=== PATIENT | female | born 1980 | race Caucasian/White ===

== ENCOUNTER 2019-04-25 12:07 | Inpatient (IN) | payer OTHER ==
--- NOTE | 2019-04-25 16:41 | BHS.RME ---
Substance Use & Tx History - Substance Use History Opiates (Heroin) Substance amount: 1 bundle- 1 1/2 bundles day Frequency of use: Daily Substance route: Injection (ex: intravenous or skin popping) Date of Last Use: 04/25/19 - Last Treatment Date of last treatment: Chemical dependency therapy only Treatment type: Substance Use Disorder (LAKEISHA) Physical/Psych/Mental Status - Behavior Eye Contact: Normal - Cooperativeness Cooperativeness: Cooperative - Thinking Thought Processes: Goal Directed - Physical Health Problems Is patient presently having any pain?: No COWS - Scale Resting Pulse: 1= SD 81-100 Sweatin= Chills/Flushing Restless Observation: 3= Extraneous Movement Pupil Size: 0= Normal to Room Light Bone or Joint Aches: 1= Mild Discomfort Runny Nose/ Eye Tearin= Nasal Congestion GI Upset > 30mins: 1= Stomach Cramp Tremor Observation: 1= Tremor [place], Not Seen Yawning Observation: 1= 1-2x During Session Anxiety or Irritability: 1=Feels Anxious/Irritable Goose Flesh Skin: 0=Smooth Skin COWS Score: 11 Treatment Recommendation - Level of Care Level of Care: Acute Medical (admitted for opioid detox with methadone), Acute Psychiatric
--- NOTE | 2019-04-25 18:10 | HP ---
COWS - Scale Resting Pulse: 1= [place] 81-100 Sweatin= Chills/Flushing Restless Observation: 3= Extraneous Movement Pupil Size: 1= Pupils >than Normal Bone or Joint Aches: 2= Severe Diffuse Aches Runny Nose/ Eye Tearin= Nasal Congestion GI Upset > 30mins: 1= Stomach Cramp Tremor Observation: 1= Tremor [place], Not Seen Yawning Observation: 1= 1-2x During Session Anxiety or Irritability: 2=Irritable/Anxious Goose Flesh Skin: 0=Smooth Skin COWS Score: 14 CIWA Score - Admission Criteria [facility]ASAS Guidelines: Admission for Medically Managed Detox: Requires at least one of the followin. CIWA greater than 12 2. Seizures within the past 24 hours 3. Delirium tremens within the past 24 hours 4. Hallucinations within the past 24 hours 5. Acute intervention needed for co occurring medical disorder 6. Acute intervention needed for co occurring psychiatric disorder 7. Severe withdrawal that cannot be handled at a lower level of care (continued vomiting, continued diarrhea, abnormal vital signs) requiring intravenous medication and/or fluids 8. Admitting History and Physical - Admission Chief Complaint: i need help to stop using heroin History of Present Illness: his 38 years old female with heroin dependence,seeking detox, denied seizure,denied syncope never been n detox before colitis no medicaion History Source: Patient Limitations to Obtaining History: No Limitations - Past Medical History Gastrointestinal: Yes: Other (colitis) ...LMP: 04/16/19 ...: No - Past Surgical History Past Surgical History: Yes: None - Smoking History Smoking history: Current every day smoker Have you smoked in the past 12 months: Yes Aproximately how many cigarettes per day: 10 - Alcohol/Substance Use Hx Alcohol Use: No History of Substance Use: reports: Heroin Date of Last Use: 04/25/19 - Social History Usual Living Arrangement: Yes: With Parent Occupation: unemployed History of Recent Travel: No [facility] Chief Complaint: i need help to stop using heroin Allergies/Adverse Reactions: Allergies Allergy/AdvReac Type Severity Reaction Status Date / Time No Known Allergies Allergy Verified 04/25/19 18:13 History of Present Illness: this 38 years old female cruz=ith heroin dependence,seeking detox,also taking aderall,klonopin, denied seizure no syncope nicotine dependence 10 cigarette/day never been in detox before longest sobriety 5 years plan for outpatient program Exam Limitations: No Limitations - Ebola screening Have you traveled outside of the country in the last 21 days: No Have you had contact with anyone from an Ebola affected area: No Have you been sick,other than usual withdrawal symptoms: No Do you have a fever: No - Review of Systems Constitutional: Chills, Loss of Appetite, Malaise, Night Sweats, Changes in sleep, Weakness, Unintentional Wgt. Loss EENT: reports: Tearing, Nose Congestion Respiratory: reports: No Symptoms reported Cardiac: reports: No Symptoms Reported GI: reports: Diarrhea, Nausea, Vomiting, Abdominal cramping : reports: No Symptoms Reported Musculoskeletal: reports: Back Pain, Joint Pain, Muscle Pain Integumentary: reports: Dryness Neuro: reports: Tremors Endocrine: reports: No Symptoms Reported Hematology: reports: No Symptoms Reported Psychiatric: reports: No Sypmtoms Reported, Judgement Intact, Mood/Affect Appropiate, Orientated x3, Anxious (adhd) Other Systems: Reviewed and Negative Patient History - Patient Medical History Hx Anemia: No Hx Asthma: No Hx Chronic Obstructive Pulmonary Disease (COPD): No Hx Cancer: No Hx Cardiac Disorders: No Hx Congestive Heart Failure: No Hx Hypertension: No Hx Hypercholesterolemia: No Hx Pacemaker: No HX Cerebrovascular Accident: No Hx Seizures: No Hx Dementia: No Hx Diabetes: No Hx Gastrointestinal Disorders: No Hx Liver Disease: No Hx Genitourinary Disorders: No Hx Sexually Transmitted Disorders: No Hx Renal Disease (ESRD): No Hx Thyroid Disease: No Hx Human Immunodeficiency Virus (HIV): No (last 03/2019) Hx Hepatitis C: No Hx Depression: No Hx Suicide Attempt: No Hx Bipolar Disorder: No Hx Schizophrenia: No Other Medical History: adhd,anxiety,no suicidal,no homicidal - Patient Surgical History Past Surgical History: No - PPD History Previous Implant?: Yes Documented Results: Negative w/o proof Implanted On Prior [facility] Admission?: No PPD to be Administered?: Yes - Reproductive History Patient is a Female of Child Bearing Age (11 -55 yrs old): Yes Last Menstrual Period: 04/16/19 Patient : No - Smoking Cessation Smoking history: Current every day smoker Have you smoked in the past 12 months: Yes Aproximately how many cigarettes per day: 10 Cigars Per Day: 0 Hx Chewing Tobacco Use: No Initiated information on smoking cessation: Yes 'Breaking Loose' booklet given: 05/02/19 - Substance & Tx. History Hx Alcohol Use: No Hx Substance Use: Yes Substance Use Type: Heroin Hx Substance Use Treatment: No - Substances abused Heroin Other (specify): 10 bags Substance route: Injection Frequency: Daily Amount used: 10 bags Age of first use: 33 Date of last use: 04/25/19 [facility] General Appearance: Yes: Moderate Distress, Tremorous, Irritable, Sweating, Anxious HEENTM: Yes: Normal ENT Inspection, SO, Pharynx Normal Respiratory: Yes: Lungs Clear, Normal Breath Sounds, No Respiratory Distress Neck: Yes: Within Normal Limits, Supple, Trachea in good position Breast: Yes: Breast Exam Deferred Cardiology: Yes: Within Normal Limits, Regular Rhythm, Regular Rate, S1, S2 Abdominal: Yes: Within Normal Limits, Normal Bowel Sounds, Non Tender, Soft, Decreased BS Genitourinary: Yes: Within Normal Limits Back: Yes: Muscle Spasm Musculoskeletal: Yes: full range of Motion, Back pain, Muscle Pain Extremities: Yes: Within Normal Limits, Tremors Neurological: Yes: notcher II-XII NML intact, Fully Oriented, Alert, Motor Strength 5/5 Integumentary: Yes: Dry, Track Barrett Lymphatic: Yes: Within Normal Limits - Diagnostic (1) Opioid dependence with withdrawal Current Visit: Yes Status: Acute (2) IVDU (intravenous drug user) Current Visit: Yes Status: Acute (3) ADHD Current Visit: Yes Status: Acute (4) Anxiety Current Visit: Yes Status: Acute (5) Nicotine dependence Current Visit: Yes Status: Acute Cleared for Admission [facility] Level of Care: Medically Managed Detox Regimen/Protocol: Methadone Inpatient Rehab Admission - Rehab Decision to Admit Inpatient rehab admission?: No
[2019-04-25 18:23] VITALS: BMI 21.2
[2019-04-25] MEDS ORDERED: METHADONE HCL 10 MG TABLET (FOR DETOX USE ONLY) PO ONE (18:23)
[2019-04-25] MEDS ORDERED: BISMUTH SUBSALICYLATE 524 MG/30 ML UD PO PRN (18:24)
[2019-04-25] MEDS ORDERED: IBUPROFEN 400 MG TABLET (FP) PO PRN (18:24)
[2019-04-25] MEDS ORDERED: MAGNESIUM CITRATE 300 ML BOTTLE PO PRN (18:24)
[2019-04-25] MEDS ORDERED: MENTHOL/PHENOL 1 EACH UD MM PRN (18:24)
[2019-04-25] MEDS ORDERED: hydrOXYzine PAMOATE 25 MG CAPSULE (FP) PO PRN (18:24)
[2019-04-25] MEDS ORDERED: ACETAMINOPHEN 325 MG TABLET (FP) PO PRN (18:24)
[2019-04-25] MEDS ORDERED: MAGNESIUM HYDROX 2400MG/30ML ORAL SUSPENSION 30 ML CUP PO PRN (18:24)
[2019-04-25] MEDS ORDERED: METHOCARBAMOL 500 MG TABLET PO PRN (18:24)
[2019-04-25] MEDS ORDERED: MAG HYDROX/AL HYDROX/SIMETH 30 ML UNIT-DOSE CUP PO PRN (18:24)
[2019-04-25] MEDS: cloNIDine HCL 0.1 MG TABLET PO PRN (21:02)
[2019-04-25] MEDS ORDERED: MELATONIN 5 MG TABLETS PO PRN (22:00)
[2019-04-25] MEDS: THIAMINE HCL 100 MG TABLET (FP) PO SCH (22:11)
[2019-04-25] MEDS: NICOTINE POLACRILEX 2 MG GUM BUC PRN (22:12)
[2019-04-26] MEDS ORDERED: METHADONE HCL 10 MG TABLET (FOR DETOX USE ONLY) ONE (09:42)
[2019-04-26] MEDS ORDERED: METHADONE HCL 5 MG TABLET (FOR DETOX USE ONLY) ONE (09:42)
[2019-04-26] MEDS ORDERED: METHADONE (DETOX) 20 MG, METHADONE (DETOX) 5 MG PO ONE (10:00)
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
[2019-04-26] MEDS: cloNIDine HCL 0.1 MG TABLET PO PRN (10:13)
[2019-04-26] MEDS: PRENATAL VITAMINS W/ FOLIC ACID TABLET (FP) PO SCH (10:14)
[2019-04-26] MEDS: NICOTINE POLACRILEX 2 MG GUM BUC PRN ×3 (10:15→22:26)
--- NOTE | 2019-04-26 10:29 | PN ---
BHS COWS - Scale Resting Pulse: 0= RI 80 or Below Sweatin= Chills/Flushing Restless Observation: 0= Sits Still Pupil Size: 1= Pupils >than Normal Bone or Joint Aches: 2= Severe Diffuse Aches Runny Nose/ Eye Tearin= None GI Upset > 30mins: 1= Stomach Cramp Tremor Observation of Outstretched Hands: 2= Slight Tremor Visible Yawning Observation: 0= None Anxiety or Irritability: 2=Irritable/Anxious Goose Flesh Skin: 3=Piloerection COWS Score: 12 BHS Progress Note (SOAP) Subjective: 38 years old female admitted on 04/25/19 for opiate withdrawal sx management treating with methadone detox regiment reports long history of panic attack treated with klonopin 1 mg bid daily received monthly filled on 04/16/19 reports had panic attack "last night" can not sleep all night belsomra 5 mg x 1 po hs Objective: 04/26/19 10:31 Vital Signs Temperature 98.8 F 04/26/19 07:31 Pulse Rate 78 04/26/19 07:31 Respiratory Rate 19 04/26/19 07:31 Blood Pressure 100/60 04/26/19 07:31 O2 Sat by Pulse Oximetry (%) 04/26/19 10:31 lab pending Assessment: 04/26/19 10:31 opiate withdrawal Plan: methadone regiment
[2019-04-26 11:47] LABS: HEMATOCRIT 37.4 % (32.4-45.2); HEMOGLOBIN 12.7 GM/dL (10.7-15.3); MCH 29.7 pg (25.7-33.7); MCHC 33.9 g/dl (32.0-36.0); MEAN CELL VOLUME 87.5 fl (80-96); MEAN PLT VOLUME 9.9 fl (7.5-11.1); PLATELET COUNT 241 K/MM3 (134-434); RBC 4.27 M/mm3 (3.60-5.2); RDW 13.7 % (11.6-15.6)
[2019-04-26 11:54] LABS: ALBUMIN 3.3 g/dl (3.4-5.0); BILIRUBIN,TOTAL 0.3 mg/dL (0.2-1); BLOOD UREA NITROGEN 15.7 mg/dL (7-18); CREATININE 0.7 mg/dL (0.55-1.3); TOT PROT 6.8 g/dl (6.4-8.2)
[2019-04-26] MEDS: diazePAM 5 MG TABLET PO PRN ×3 (13:41→22:28)
[2019-04-26] MEDS ORDERED: SUVOREXANT 5 MG TABLET PO ONE (22:00)
[2019-04-26] MEDS: THIAMINE HCL 100 MG TABLET (FP) PO SCH (22:26)
[2019-04-27] MEDS: diazePAM 5 MG TABLET PO PRN ×4 (04:33→21:02)
[2019-04-27] MEDS ORDERED: ONDANSETRON *ODT* 4 MG TABLET SL ONE (09:20)
[2019-04-27] MEDS: PRENATAL VITAMINS W/ FOLIC ACID TABLET (FP) PO SCH (09:21)
[2019-04-27] MEDS ORDERED: METHADONE HCL 10 MG TABLET (FOR DETOX USE ONLY) PO ONE (10:00)
--- NOTE | 2019-04-27 10:30 | EKG ---
Test Reason : Blood Pressure : / mmHG Vent. Rate : 083 BPM Atrial Rate : 083 BPM P-R Int : 126 ms QRS Dur : 084 ms QT Int : 368 ms P-R-T Axes : 011 062 029 degrees QTc Int : 432 ms NORMAL SINUS RHYTHM NORMAL ECG NO PREVIOUS ECGS AVAILABLE Confirmed by Scooter Gregg ([id number]) on 04/27/2019 10:29:45 AM Referred By: MAINE RAMAN Confirmed By:Scooter Gregg
--- NOTE | 2019-04-27 10:48 | PN ---
BHS COWS - Scale Resting Pulse: 2= [place] 101-120 Sweatin= Chills/Flushing Restless Observation: 0= Sits Still Pupil Size: 1= Pupils >than Normal Bone or Joint Aches: 2= Severe Diffuse Aches Runny Nose/ Eye Tearin= None GI Upset > 30mins: 2= Nausea/Diarrhea Tremor Observation of Outstretched Hands: 2= Slight Tremor Visible Yawning Observation: 0= None Anxiety or Irritability: 2=Irritable/Anxious Goose Flesh Skin: 0=Smooth Skin COWS Score: 12 BHS Progress Note (SOAP) Subjective: 38 years old female admitted on 04/25/19 for opiate withdrawal sx management treating with methadone detox regiment reports feeling nausea after breakfast zofran sl 4 mg x 1 Objective: 04/27/19 10:47 Vital Signs Temperature 98.2 F 04/27/19 08:50 Pulse Rate 102 H 04/27/19 08:50 Respiratory Rate 18 04/27/19 08:50 Blood Pressure 108/65 04/27/19 08:50 O2 Sat by Pulse Oximetry (%) Laboratory Last Values WBC 6.0 K/mm3 (4.0-10.0) 04/26/19 07:25 RBC 4.27 M/mm3 (3.60-5.2) 04/26/19 07:25 Hgb 12.7 GM/dL (10.7-15.3) 04/26/19 07:25 Hct 37.4 % (32.4-45.2) 04/26/19 07:25 MCV 87.5 fl (80-96) 04/26/19 07:25 MCH 29.7 pg (25.7-33.7) 04/26/19 07:25 MCHC 33.9 g/dl (32.0-36.0) 04/26/19 07:25 RDW 13.7 % (11.6-15.6) 04/26/19 07:25 Plt Count 241 K/MM3 (134-434) 04/26/19 07:25 MPV 9.9 fl (7.5-11.1) 04/26/19 07:25 Sodium 139 mmol/L (136-145) 04/26/19 07:25 Potassium 4.0 mmol/L (3.5-5.1) 04/26/19 07:25 Chloride 106 mmol/L (98-107) 04/26/19 07:25 Carbon Dioxide 30 mmol/L (21-32) 04/26/19 07:25 Anion Gap 4 MMOL/L (8-16) L 04/26/19 07:25 BUN 15.7 mg/dL (7-18) 04/26/19 07:25 Creatinine 0.7 mg/dL (0.55-1.3) 04/26/19 07:25 Est GFR (CKD-EPI)AfAm 128.28 04/26/19 07:25 Est GFR (CKD-EPI)NonAf 110.69 04/26/19 07:25 Random Glucose 94 mg/dL (74-106) 04/26/19 07:25 Calcium 9.0 mg/dL (8.5-10.1) 04/26/19 07:25 Total Bilirubin 0.3 mg/dL (0.2-1) 04/26/19 07:25 AST 22 U/L (15-37) 04/26/19 07:25 ALT 23 U/L (13-61) 04/26/19 07:25 Alkaline Phosphatase 62 U/L (45-117) 04/26/19 07:25 Total Protein 6.8 g/dl (6.4-8.2) 04/26/19 07:25 Albumin 3.3 g/dl (3.4-5.0) L 04/26/19 07:25 RPR Titer Nonreactive (NONREACTIVE) 04/26/19 07:25 lab noted Assessment: 04/27/19 10:48 opiate withdrawal discuss medication assisted treatment program Plan: methadone regiment pickle processor narcan from pharmacy
--- NOTE | 2019-04-27 17:54 | PN ---
S Progress Note Note: per nursing, pt requesting additional Zofran for nausea , received 1 dose this morning EKG : QTc 432 ms 04/25/2019 Prn Zofran added Vital Signs - 24 hr 04/26/19 04/26/19 04/27/19 20:00 20:40 00:30 Temperature 98.1 F 98.9 F Pulse Rate 92 H 94 H Respiratory 18 19 18 Rate Blood Pressure 106/65 105/64 04/27/19 04/27/19 04/27/19 03:30 05:30 08:50 Temperature 97.7 F 98.2 F Pulse Rate 86 102 H Respiratory 16 18 18 Rate Blood Pressure 114/65 108/65 04/27/19 12:57 Temperature 98 F Pulse Rate 76 Respiratory 18 Rate Blood Pressure 130/70
[2019-04-27] MEDS: ONDANSETRON *ODT* 4 MG TABLET SL PRN (18:07)
--- NOTE | 2019-04-27 19:07 | PN ---
BHS Progress Note Note: pt did not tolerate p.o. zofran . left FA track alvarez c/d/i Vital Signs - 24 hr 04/26/19 04/26/19 04/27/19 20:00 20:40 00:30 Temperature 98.1 F 98.9 F Pulse Rate 92 H 94 H Respiratory 18 19 18 Rate Blood Pressure 106/65 105/64 04/27/19 04/27/19 04/27/19 03:30 05:30 08:50 Temperature 97.7 F 98.2 F Pulse Rate 86 102 H Respiratory 16 18 18 Rate Blood Pressure 114/65 108/65 04/27/19 04/27/19 04/27/19 12:57 16:52 18:28 Temperature 98 F 98.5 F 100.3 F H Pulse Rate 76 71 77 Respiratory 18 18 18 Rate Blood Pressure 130/70 126/87 134/82 P : Tigan i.m. x once
[2019-04-27] MEDS ORDERED: TRIMETHOBENZAMIDE HCL 200MG/2ML INJ IM ONE (19:08)
[2019-04-27] MEDS: THIAMINE HCL 100 MG TABLET (FP) PO SCH (21:02)
[2019-04-27] MEDS: SUVOREXANT 10 MG TABLET PO PRN (23:06)
[2019-04-27] MEDS: ACETAMINOPHEN 325 MG TABLET (FP) PO PRN (23:28)
[2019-04-28] MEDS: diazePAM 5 MG TABLET PO PRN ×4 (02:13→21:09)
[2019-04-28] MEDS: ACETAMINOPHEN 325 MG TABLET (FP) PO PRN (06:32)
[2019-04-28] MEDS: ONDANSETRON *ODT* 4 MG TABLET SL PRN ×2 (07:11→22:52)
[2019-04-28] MEDS ORDERED: METHADONE HCL 5 MG TABLET (FOR DETOX USE ONLY) ONE (09:44)
[2019-04-28] MEDS ORDERED: METHADONE HCL 10 MG TABLET (FOR DETOX USE ONLY) ONE (09:44)
[2019-04-28] MEDS ORDERED: METHADONE (DETOX) 10 MG, METHADONE (DETOX) 5 MG PO ONE (10:00)
[2019-04-28] MEDS: PRENATAL VITAMINS W/ FOLIC ACID TABLET (FP) PO SCH (10:55)
--- NOTE | 2019-04-28 12:19 | PN ---
S CIWA - CIWA Score Nausea/Vomitin Muscle Tremors: 1-None Visible, but Stark Anxiety: 1-Mildly Anxious Agitation: 1-Slight > Activity Paroxysmal Sweats: 1-Minimal Palms Moist Orientation: 0-Oriented Tacttile Disturbances: 0-None Auditory Disturbances: 0-None Visual Disturbances: 0-None Headache: 0-None Present CIWA-Ar Total Score: 7 BHS Progress Note (SOAP) Subjective: 38 years old female admitted on 04/25/19 for opiate withdrawal sx management treating with methadone detox regiment feeling ok today requests valium 10 mg po q4h till "the time of discharge" health teaching on valium 10 mg po q4h prn x 72 hours as pervious discussion patient prefers to return to [facility] out patient chemical dependent rehab facility where she was familiar patient reports that she has long history of nausea and vomiting taking zofran at home received valium and methadone in am patient tolerated well no vomiting after lunch vomited x 1 tigan 200 mg im x 1 Objective: 04/28/19 12:51 Vital Signs Temperature 99.9 F H 04/28/19 08:59 Pulse Rate 74 04/28/19 08:59 Respiratory Rate 18 04/28/19 08:59 Blood Pressure 115/60 04/28/19 08:59 O2 Sat by Pulse Oximetry (%) Laboratory Last Values WBC 6.0 K/mm3 (4.0-10.0) 04/26/19 07:25 RBC 4.27 M/mm3 (3.60-5.2) 04/26/19 07:25 Hgb 12.7 GM/dL (10.7-15.3) 04/26/19 07:25 Hct 37.4 % (32.4-45.2) 04/26/19 07:25 MCV 87.5 fl (80-96) 04/26/19 07:25 MCH 29.7 pg (25.7-33.7) 04/26/19 07:25 MCHC 33.9 g/dl (32.0-36.0) 04/26/19 07:25 RDW 13.7 % (11.6-15.6) 04/26/19 07:25 Plt Count 241 K/MM3 (134-434) 04/26/19 07:25 MPV 9.9 fl (7.5-11.1) 04/26/19 07:25 Sodium 139 mmol/L (136-145) 04/26/19 07:25 Potassium 4.0 mmol/L (3.5-5.1) 04/26/19 07:25 Chloride 106 mmol/L (98-107) 04/26/19 07:25 Carbon Dioxide 30 mmol/L (21-32) 04/26/19 07:25 Anion Gap 4 MMOL/L (8-16) L 04/26/19 07:25 BUN 15.7 mg/dL (7-18) 04/26/19 07:25 Creatinine 0.7 mg/dL (0.55-1.3) 04/26/19 07:25 Est GFR (CKD-EPI)AfAm 128.28 04/26/19 07:25 Est GFR (CKD-EPI)NonAf 110.69 04/26/19 07:25 Random Glucose 94 mg/dL (74-106) 04/26/19 07:25 Calcium 9.0 mg/dL (8.5-10.1) 04/26/19 07:25 Total Bilirubin 0.3 mg/dL (0.2-1) 04/26/19 07:25 AST 22 U/L (15-37) 04/26/19 07:25 ALT 23 U/L (13-61) 04/26/19 07:25 Alkaline Phosphatase 62 U/L (45-117) 04/26/19 07:25 Total Protein 6.8 g/dl (6.4-8.2) 04/26/19 07:25 Albumin 3.3 g/dl (3.4-5.0) L 04/26/19 07:25 RPR Titer Nonreactive (NONREACTIVE) 04/26/19 07:25 lab noted Assessment: 04/28/19 12:53 opiate withdrawal Plan: methadone regiment
[2019-04-28] MEDS ORDERED: TRIMETHOBENZAMIDE HCL 200MG/2ML INJ IM ONE (13:00)
[2019-04-28] MEDS ORDERED: AZITHROMYCIN 250 MG TABLET PO ONE (14:00)
[2019-04-28] MEDS: FAMOTIDINE 20 MG TABLET PO SCH ×2 (14:24→22:52)
--- NOTE | 2019-04-28 15:19 | PN ---
Psychiatric Progress Note Vital Signs: Vital Signs Period Temp Pulse Resp BP Sys/Whittaker Pulse Ox Last 24 Hr 97.8 F-100.6 F 71-87 16-18 106-134/60-87 Date of Session: 04/28/19 Chief Complaint:: " Will I get klonopin on the rehab floor ? " HPI: Day 4 of detoxification. Case of a 38 y/o female admitted to [address] [place] [address] to address LAKEISHA issues of benzodiazepine + opioid and nicotine co-morbid with ADHD and PTSD. Patient has requested meeting with psychiatrist to inquire about continuity of benzodiazepine drug (clonazepam) after transfer to the rehabilitation unit in next two days. ROS: Unremarkable. Alert, fully oriented, moderately anxious (fearful of not getting her dose [facility] Current Medications: Active Medications Generic Name Dose Route Start Last Admin Trade Name Freq PRN Reason Stop Dose Admin Acetaminophen 650 mg 04/25/19 18:24 04/28/19 06:32 Tylenol - PO 650 mg Q6H PRN Administration PAIN LEVEL 4 - 6 Acetaminophen 650 mg 04/25/19 18:24 04/27/19 18:59 Tylenol - PO 650 mg Q6H PRN Administration FEVER Al Hydroxide/Mg Hydroxide 30 ml 04/25/19 18:24 04/27/19 13:41 Mylanta Oral Suspension - PO 30 ml Q6H PRN Administration DYSPEPSIA Azithromycin 250 mg 04/29/19 10:00 Zithromax - PO 05/03/19 09:59 DAILY SRIKANTH Bismuth Subsalicylate 524 mg 04/25/19 18:24 Pepto-Bismol - PO Q1H PRN DIARRHEA Diazepam 10 mg 04/26/19 10:22 04/28/19 09:12 Valium - PO 04/29/19 10:22 10 mg Q4H PRN Administration WITHDRAWAL(CONT SUBST) Eucalyptus/Menthol/Phenol/Sorbitol 1 each 04/25/19 18:24 Cepastat Lozenge - MM 05/01/19 18:24 Q4H PRN SORE THROAT Famotidine 20 mg 04/28/19 14:00 04/28/19 14:24 Pepcid - PO 20 mg BID SRIKANTH Administration Hydroxyzine Pamoate 25 mg 04/25/19 18:24 Vistaril - PO 05/01/19 18:24 Q6H PRN For Anxiety Magnesium Citrate 300 ml 04/25/19 18:24 Citroma - PO Q48H PRN CONSTIPATION Magnesium Hydroxide 30 ml 04/25/19 18:24 Milk Of Magnesia - PO PRN PRN CONSTIPATION Melatonin 5 mg 04/25/19 22:00 04/26/19 22:26 Melatonin PO 5 mg HS PRN Administration INSOMNIA Methadone HCl 5 mg 04/30/19 06:00 Dolophine - PO 04/30/19 06:01 ONCE@0600 ONE Methadone HCl 10 mg 04/29/19 10:00 Dolophine - PO 04/29/19 10:01 ONCE ONE Methocarbamol 500 mg 04/25/19 18:24 Robaxin - PO 05/01/19 18:24 Q6H PRN MUSCLE SPASMS Nicotine Polacrilex 2 mg 04/25/19 18:24 04/26/19 22:26 Nicorette Gum - BUC 2 mg Q2H PRN Administration NICOTINE REPLACEMENT RX Ondansetron HCl 4 mg 04/27/19 17:53 04/28/19 07:11 Zofran Odt - SL 4 mg Q6H PRN Administration NAUSEA AND/OR VOMITING Multivit/Folic Acid/Iron 1 tab 04/26/19 10:00 04/28/19 10:55 Vitamins ([facility]) - PO 1 tab DAILY SRIKANTH Administration Suvorexant 10 mg 04/26/19 22:00 04/27/19 23:06 Belsomra PO 04/29/19 22:00 10 mg HS PRN Administration INSOMNIA Thiamine HCl 100 mg 04/25/19 22:00 04/27/19 21:02 Vitamin B1 - PO 100 mg HS SRIKANTH Administration Medication(s) Change(s): None at this time. Case will be discussed with medical specialist Dr Tinoco for appropriate management. Current Side Effect: No Lab tests ordered: No Lab tests reviewed: Yes Provider note:: Chart reviewed. Psychiatric consult note (04/26/19) of CECY Segundo : read and appreciated. Met with patient. Concern about benzodiazepine protocol : validated. Review of [facility] record shows negative urine toxicology for benzos. I-Stop check confirms refills for adderall + clonazepam. Patient is receptive to teaching. No acting out. Ms Fuentes is advised to focus on her treatment goals and allow clinicians to find answers to her issues. She agrees. Patient is not psychotic or manic. Not suicidal or homicidal. She is cognitively intact. Appears to be motivated for rehabilitative care. Stable mental status. See MSE report for details. Observation. Total face to face time:: 35 Mental Status Exam - Mental Status Exam Alert and Oriented to: Time, Place, Person Cognitive Function: Good Patient Appearance: Well Groomed Mood: Nervous, Anxious Affect: Appropriate, Normal Range Patient Behavior: Appropriate, Cooperative Speech Pattern: Clear, Appropriate Voice Loudness: Normal Thought Process: Intact, Goal Oriented Thought Disorder: Not Present Hallucinations: Denies Suicidal Ideation: Denies Homicidal Ideation: Denies Insight/Judgement: Poor Sleep: Well Appetite: Good Gait/Station: Normal Psychiatric Treatment Plan - Problem List (1) Opioid dependence with withdrawal Current Visit: Yes Comment: . (2) Nicotine dependence Current Visit: Yes Comment: . (3) Anxiety disorder Current Visit: Yes Comment: . (4) PTSD (post-traumatic stress disorder) Current Visit: Yes Comment: . According to history. (5) ADHD Current Visit: No Comment: As per records.
[2019-04-28 18:20] LABS: PH,URINE >= 9.0 (5.0-8.0); URINE APPEARANCE CLOUDY; URINE BILIRUBIN NEGATIVE (NEGATIVE); URINE COLOR YELLOW; URINE GLUCOSE (UA) NEGATIVE (NEGATIVE); URINE KETONE NEGATIVE (NEGATIVE); URINE LEUK ESTERASE NEGATIVE (NEGATIVE); URINE NITRITE NEGATIVE (NEGATIVE); URINE PROTEIN TRACE (NEGATIVE); URINE UROBILINOGEN 0.2 mg/dL (0.2-1.0)
[2019-04-28] MEDS: SUVOREXANT 10 MG TABLET PO PRN (22:52)
[2019-04-28] MEDS: THIAMINE HCL 100 MG TABLET (FP) PO SCH (22:52)
[2019-04-29] MEDS: ONDANSETRON *ODT* 4 MG TABLET SL PRN ×2 (05:19→21:38)
[2019-04-29] MEDS: diazePAM 5 MG TABLET PO PRN (05:24)
[2019-04-29] MEDS ORDERED: AZITHROMYCIN 250 MG TABLET PO SCH (10:00)
[2019-04-29] MEDS ORDERED: METHADONE HCL 10 MG TABLET (FOR DETOX USE ONLY) PO ONE (10:00)
--- NOTE | 2019-04-29 11:05 | PN ---
BHS COWS - Scale Resting Pulse: 0= [place] 80 or Below Sweatin= Chills/Flushing Restless Observation: 0= Sits Still Pupil Size: 0= Normal to Room Light Bone or Joint Aches: 0= None Runny Nose/ Eye Tearin= None GI Upset > 30mins: 3= Vomiting/Diarrhea Tremor Observation of Outstretched Hands: 0= None Yawning Observation: 0= None Anxiety or Irritability: 0= None Goose Flesh Skin: 0=Smooth Skin COWS Score: 4 BHS Progress Note (SOAP) Subjective: 38 years old female admitted on 04/25/19 for opiate withdrawal sx management treating with methadone detox regiment chronic nausea vomiting treated with zofran sl at home prn received zofran around 5 am tolerated valium 10 mg well patient requests to have valium prn till the time of discharged off the detox unit reports taking klonopin 2 mg daily for "years" last refilled beginning Apr 2019 patient prefers to return home continue klonopin and zofran Objective: 04/29/19 11:11 Vital Signs Temperature 99.3 F 04/29/19 07:22 Pulse Rate 65 04/29/19 07:22 Respiratory Rate 18 04/29/19 07:22 Blood Pressure 120/83 04/29/19 07:22 O2 Sat by Pulse Oximetry (%) Laboratory Last Values WBC 6.0 K/mm3 (4.0-10.0) 04/26/19 07:25 RBC 4.27 M/mm3 (3.60-5.2) 04/26/19 07:25 Hgb 12.7 GM/dL (10.7-15.3) 04/26/19 07:25 Hct 37.4 % (32.4-45.2) 04/26/19 07:25 MCV 87.5 fl (80-96) 04/26/19 07:25 MCH 29.7 pg (25.7-33.7) 04/26/19 07:25 MCHC 33.9 g/dl (32.0-36.0) 04/26/19 07:25 RDW 13.7 % (11.6-15.6) 04/26/19 07:25 Plt Count 241 K/MM3 (134-434) 04/26/19 07:25 MPV 9.9 fl (7.5-11.1) 04/26/19 07:25 Sodium 139 mmol/L (136-145) 04/26/19 07:25 Potassium 4.0 mmol/L (3.5-5.1) 04/26/19 07:25 Chloride 106 mmol/L (98-107) 04/26/19 07:25 Carbon Dioxide 30 mmol/L (21-32) 04/26/19 07:25 Anion Gap 4 MMOL/L (8-16) L 04/26/19 07:25 BUN 15.7 mg/dL (7-18) 04/26/19 07:25 Creatinine 0.7 mg/dL (0.55-1.3) 04/26/19 07:25 Est GFR (CKD-EPI)AfAm 128.28 04/26/19 07:25 Est GFR (CKD-EPI)NonAf 110.69 04/26/19 07:25 Random Glucose 94 mg/dL (74-106) 04/26/19 07:25 Calcium 9.0 mg/dL (8.5-10.1) 04/26/19 07:25 Total Bilirubin 0.3 mg/dL (0.2-1) 04/26/19 07:25 AST 22 U/L (15-37) 04/26/19 07:25 ALT 23 U/L (13-61) 04/26/19 07:25 Alkaline Phosphatase 62 U/L (45-117) 04/26/19 07:25 Total Protein 6.8 g/dl (6.4-8.2) 04/26/19 07:25 Albumin 3.3 g/dl (3.4-5.0) L 04/26/19 07:25 Urine Color Yellow 04/27/19 07:25 Urine Appearance Cloudy 04/27/19 07:25 Urine pH >= 9.0 (5.0-8.0) H 04/27/19 07:25 Ur Specific [place] 1.019 (1.010-1.035) 04/27/19 07:25 Urine Protein Trace (NEGATIVE) 04/27/19 07:25 Urine Glucose (UA) Negative (NEGATIVE) 04/27/19 07:25 Urine Ketones Negative (NEGATIVE) 04/27/19 07:25 Urine Blood Negative (NEGATIVE) 04/27/19 07:25 Urine Nitrite Negative (NEGATIVE) 04/27/19 07:25 Urine Bilirubin Negative (NEGATIVE) 04/27/19 07:25 Urine Urobilinogen 0.2 mg/dL (0.2-1.0) 04/27/19 07:25 Ur Leukocyte Esterase Negative (NEGATIVE) 04/27/19 07:25 RPR Titer Nonreactive (NONREACTIVE) 04/26/19 07:25 lab noted Assessment: 04/29/19 11:11 opiate withdrawal Plan: methadone regiment
[2019-04-29] MEDS: PRENATAL VITAMINS W/ FOLIC ACID TABLET (FP) PO SCH (11:06)
[2019-04-29] MEDS: FAMOTIDINE 20 MG TABLET PO SCH ×2 (11:06→21:38)
[2019-04-29] MEDS ORDERED: TRIMETHOBENZAMIDE HCL 200MG/2ML INJ IM ONE (11:25)
[2019-04-29] MEDS: ACETAMINOPHEN 325 MG TABLET (FP) PO PRN (11:47)
[2019-04-29] MEDS ORDERED: TRIMETHOBENZAMIDE HCL 200MG/2ML INJ IM PRN (18:00)
--- NOTE | 2019-04-29 18:47 | PN ---
S Progress Note Note: Psychiatry Attending's note (follow-up) : Re-approached by patient during daytime. Issue : wants to contact provider Dr Sofia العلي. Dr العلي works at [employer] in [place], [place]. Ms Fuentes provided a signed consent allowing food writer to talk to Dr العلي. Done : food writer called Dr العلي at [phone]. No success. has left office.
[2019-04-29] MEDS: THIAMINE HCL 100 MG TABLET (FP) PO SCH (21:38)
[2019-04-29] MEDS: SUVOREXANT 10 MG TABLET PO PRN (21:38)
[2019-04-30] MEDS ORDERED: TRIMETHOBENZAMIDE HCL 200MG/2ML INJ IM ONE (02:55)
[2019-04-30] MEDS ORDERED: METHADONE HCL 5 MG TABLET (FOR DETOX USE ONLY) PO ONE (06:00)
[2019-04-30 07:02] VITALS: BP 147/78; PULSE 72; TEMP 100.5
[2019-04-30] MEDS: ACETAMINOPHEN 325 MG TABLET (FP) PO PRN (07:14)
--- NOTE | 2019-04-30 07:18 | PN ---
[facility] Progress Note Note: Patient complained of vomiting Vital Signs 04/30/19 04/30/19 04/30/19 00:30 03:30 07:01 Temperature 100.5 F H Pulse Rate 72 Respiratory 18 18 18 Rate Blood Pressure 147/78 Action: Tigan 200mg IM ordered
[2019-04-30] MEDS: ONDANSETRON *ODT* 4 MG TABLET SL PRN (08:33)
--- NOTE | 2019-04-30 14:54 | DS ---
[facility] Detox Discharge Summary Admission Date: 04/25/19 Discharge Date: 04/30/19 - History Present History: Opioid Dependence Additional Comments: 38 years old female admitted on 04/25/19 for opiate withdrawal sx management treated with methadone detox regiment Ms Fuentes has completed the methadone detox regiment and is tolerated well patient received zofran 4 mg sl and methadone 5 mg po around 5 am today tolerated well patient reports that she has chronic vomiting syndrome treated with zofran sl at home seen by psychiatrist while in detox no medical intervention at this time alert oriented x 3 cardiac s1s2 regular rate rhythm respiratory clear lungs bilaterally on auscultation extremities full range of motion ambulating steady gait from bed to bathroom to hallway dress herself speech clearly coherently request wheelchair from 3N to labby waiting for transportation to [facility] chemical dependent rehab patient states that she is taking klonopin every day requests prescription for klonopin encourage the patient to contact her klonopin provider for continuity of care Pertinent Past History: time for discharge 91 minutes - Physical Exam Results Vital Signs: Vital Signs Temperature 100.5 F H 04/30/19 07:01 Pulse Rate 72 04/30/19 07:01 Respiratory Rate 18 04/30/19 07:01 Blood Pressure 147/78 04/30/19 07:01 O2 Sat by Pulse Oximetry (%) Pertinent Admission Physical Exam Findings: opiate withdrawal Laboratory Last Values WBC 6.0 K/mm3 (4.0-10.0) 04/26/19 07:25 RBC 4.27 M/mm3 (3.60-5.2) 04/26/19 07:25 Hgb 12.7 GM/dL (10.7-15.3) 04/26/19 07:25 Hct 37.4 % (32.4-45.2) 04/26/19 07:25 MCV 87.5 fl (80-96) 04/26/19 07:25 MCH 29.7 pg (25.7-33.7) 04/26/19 07:25 MCHC 33.9 g/dl (32.0-36.0) 04/26/19 07:25 RDW 13.7 % (11.6-15.6) 04/26/19 07:25 Plt Count 241 K/MM3 (134-434) 04/26/19 07:25 MPV 9.9 fl (7.5-11.1) 04/26/19 07:25 Sodium 139 mmol/L (136-145) 04/26/19 07:25 Potassium 4.0 mmol/L (3.5-5.1) 04/26/19 07:25 Chloride 106 mmol/L (98-107) 04/26/19 07:25 Carbon Dioxide 30 mmol/L (21-32) 04/26/19 07:25 Anion Gap 4 MMOL/L (8-16) L 04/26/19 07:25 BUN 15.7 mg/dL (7-18) 04/26/19 07:25 Creatinine 0.7 mg/dL (0.55-1.3) 04/26/19 07:25 Est GFR (CKD-EPI)AfAm 128.28 04/26/19 07:25 Est GFR (CKD-EPI)NonAf 110.69 04/26/19 07:25 Random Glucose 94 mg/dL (74-106) 04/26/19 07:25 Calcium 9.0 mg/dL (8.5-10.1) 04/26/19 07:25 Total Bilirubin 0.3 mg/dL (0.2-1) 04/26/19 07:25 AST 22 U/L (15-37) 04/26/19 07:25 ALT 23 U/L (13-61) 04/26/19 07:25 Alkaline Phosphatase 62 U/L (45-117) 04/26/19 07:25 Total Protein 6.8 g/dl (6.4-8.2) 04/26/19 07:25 Albumin 3.3 g/dl (3.4-5.0) L 04/26/19 07:25 Urine Color Yellow 04/27/19 07:25 Urine Appearance Cloudy 04/27/19 07:25 Urine pH >= 9.0 (5.0-8.0) H 04/27/19 07:25 Ur Specific [place] 1.019 (1.010-1.035) 04/27/19 07:25 Urine Protein Trace (NEGATIVE) 04/27/19 07:25 Urine Glucose (UA) Negative (NEGATIVE) 04/27/19 07:25 Urine Ketones Negative (NEGATIVE) 04/27/19 07:25 Urine Blood Negative (NEGATIVE) 04/27/19 07:25 Urine Nitrite Negative (NEGATIVE) 04/27/19 07:25 Urine Bilirubin Negative (NEGATIVE) 04/27/19 07:25 Urine Urobilinogen 0.2 mg/dL (0.2-1.0) 04/27/19 07:25 Ur Leukocyte Esterase Negative (NEGATIVE) 04/27/19 07:25 RPR Titer Nonreactive (NONREACTIVE) 04/26/19 07:25 lab noted - Treatment Hospital Course: Detox Protocol Followed, Detoxed Safely, Responded well, Discharged Condition Good, Rehab Referral Accepted Patient has Accepted a Rehab Referral to: [facility] - Medication Discharge Medications: Ambulatory Orders Clonazepam [Klonopin] 1 mg PO BID 04/25/19 Dextroamphetamine/Amphetamine [Adderall Xr 30 mg Capsule] 30 mg PO TID 04/25/19 Naloxone HCl [Narcan] 4 mg NS ASDIR PRN #1 spray 04/27/19 Azithromycin [Zithromax 250mg Tablets -] 250 mg PO DAILY #7 tablet 04/30/19 - Diagnosis (1) Opioid dependence with withdrawal Status: Acute (2) Nicotine dependence Status: Acute Qualifiers: Nicotine product type: cigarettes Substance use status: in withdrawal Qualified Code(s): F17.213 - Nicotine dependence, cigarettes, with withdrawal - AMA Did Patient Leave Against Medical Advice: No COWS (PN) - Opiate Withdrawal Resting Pulse: 0= [place] 80 or Below Sweatin= No chills or Flushing Restless Observation: 0= Sits Still Pupil Size: 0= Normal to Room Light Bone or Joint Aches: 0= None Runny Nose/ Eye Tearin= None GI Upset > 30mins: 3= Vomiting/Diarrhea Tremor Observation of Outstretched Hands: 0= None Yawning Observation: 0= None Anxiety or Irritability: 0= None Goose Flesh Skin: 0=Smooth Skin COWS Score: 3
== END 2019-04-30 09:00 | disposition other institution (70) | DRG 773 ==
LOC: YASAS 12:07 → Y3N 18:20
PROVIDERS: ADMIT Allergy & Immunology; ATTEND Allergy & Immunology
PROC: HZ2ZZZZ Detoxification Services for Substance Abuse Treatment (ICD-10-PCS; principal; 2019-04-25)
DX: F11.23 Opioid dependence with withdrawal (principal); F17.210 Nicotine dependence, cigarettes, uncomplicated; F19.282 Other psychoactive substance dependence with psychoactive substance-induced sleep disorder; F41.9 Anxiety disorder, unspecified; F43.10 Post-traumatic stress disorder, unspecified; F90.9 Attention-deficit hyperactivity disorder, unspecified type; R11.0 Nausea; Z91.410 Personal history of adult physical and sexual abuse
CPT/HCPCS: 36415; 80053; 81003; 85027; 86593; 93005; 93010; J0735; Q0162

== ENCOUNTER 2019-11-22 19:02 | Inpatient (IN) | payer OTHER ==
[2019-11-22 20:04] VITALS: BMI 21.9
--- NOTE | 2019-11-22 20:51 | HP ---
COWS - Scale Resting Pulse: 1= [place] 81-100 Sweatin=Flushed/Facial Moisture Restless Observation: 1= Difficult to Sit Still Pupil Size: 0= Normal to Room Light Bone or Joint Aches: 2= Severe Diffuse Aches Runny Nose/ Eye Tearin= None GI Upset > 30mins: 3= Vomiting/Diarrhea (vomiting x 3, no diarrhea) Tremor Observation: 2= Slight Tremor Visible Yawning Observation: 1= 1-2x During Session Anxiety or Irritability: 2=Irritable/Anxious Goose Flesh Skin: 3=Piloerection COWS Score: 17 CIWA Score - Admission Criteria OASAS Guidelines: Admission for Medically Managed Detox: Requires at least one of the followin. CIWA greater than 12 2. Seizures within the past 24 hours 3. Delirium tremens within the past 24 hours 4. Hallucinations within the past 24 hours 5. Acute intervention needed for co occurring medical disorder 6. Acute intervention needed for co occurring psychiatric disorder 7. Severe withdrawal that cannot be handled at a lower level of care (continued vomiting, continued diarrhea, abnormal vital signs) requiring intravenous medication and/or fluids 8. Admitting History and Physical - Past Medical History Gastrointestinal: Yes: Other (colitis) ...LMP: 04/16/19 - Past Surgical History Past Surgical History: Yes: None - Smoking History Smoking history: Current every day smoker Have you smoked in the past 12 months: Yes Aproximately how many cigarettes per day: 10 - Alcohol/Substance Use Hx Alcohol Use: No History of Substance Use: reports: Heroin Date of Last Use: 04/25/19 - Social History Occupation: unemployed History of Recent Travel: No Admission [facility] Chief Complaint: Seeking admission to detox from heroin Allergies/Adverse Reactions: Allergies Allergy/AdvReac Type Severity Reaction Status Date / Time No Known Allergies Allergy Verified 04/25/19 18:13 History of Present Illness: 39 years old female with eleven years of heroin dependence is seeking admission to detox. Her last admission was for the period 04/25/2019 - 04/30/2019 and she reports that she relapsed in July 2019. She uses 10 bags of heroin daily. Patient reports medical history of colitis, psych. history of depression, anxiety, PTSD, insomnia and denies suicidal ideation at this time. She is unemployed, lives with her parents and reports has a legal case of drug possession pending in drug court. She reports blackouts and overdose. Confidential Drug Utilization Report Search Terms: Pamela Fuentes, 1980Search Date: 11/22/2019 20:40:27 PM The Drug Utilization Report below displays all of the controlled substance prescriptions, if any, that your patient has filled in the last twelve months. The information displayed on this report is compiled from pharmacy submissions to the Department, and accurately reflects the information as submitted by the pharmacies. Others' Prescriptions Patient Name: Pamela FuentesBirth Date: 1980 Address: [address] [place] [id number]: Female Rx Written Rx Dispensed Drug Quantity Days Supply Prescriber Name Payment Method Dispenser 11/03/2019 11/03/2019 dext[facility]amp[facility]amphet er 10 [facility] 11/03/2019 [facility]2019 11/03/2019 alprazolam 1 mg tablet 90 [facility] 09/15/2019 10/28/2019 zolpidem tartrate 10 mg tablet 30 [facility] 10/08/2019 10/13/2019 dextroamp-amphet er 10 mg cap 30 30 [facility] 10/08/2019 10/08/2019 clonazepam 1 mg tablet 60 30 [facility] 10/08/2019 10/08/2019 dextroamp-amphetamin 30 mg tab 90 30 [facility] 09/15/2019 10/05/2019 zolpidem tartrate 10 mg tablet 30 30 [facility] 10/05/2019 10/05/2019 acetaminophen-cod #3 tablet 12 2 [place], [id number] 09/15/2019 09/15/2019 dextroamp-amphet er 10 mg cap 30 30 [facility] 09/15/2019 09/15/2019 clonazepam 1 mg tablet 60 30 [facility] 09/15/2019 09/15/2019 dextroamp-amphetamin 30 mg tab 90 30 [facility] 06/23/2019 09/10/2019 zolpidem tartrate 10 mg tablet 30 30 [facility] 08/18/2019 08/18/2019 dextroamp-amphetamin 30 mg tab 90 30 [facility] 08/18/2019 08/18/2019 clonazepam 1 mg tablet 60 30 [facility] 08/18/2019 08/18/2019 dextroamp-amphet er 10 mg cap 30 30 [facility] 06/23/2019 08/17/2019 zolpidem tartrate 10 mg tablet 30 30 Exam Limitations: No Limitations - Ebola screening Have you traveled outside of the country in the last 21 days: No Have you had contact with anyone from an Ebola affected area: No Have you been sick,other than usual withdrawal symptoms: No Do you have a fever: No - Review of Systems Constitutional: Chills, Loss of Appetite, Malaise, Night Sweats EENT: reports: Nose Congestion Respiratory: reports: No Symptoms reported Cardiac: reports: No Symptoms Reported GI: reports: Nausea, Poor Appetite, Poor Fluid Intake, Vomiting (x 3), Abdominal cramping : reports: No Symptoms Reported Musculoskeletal: reports: Back Pain, Joint Pain, Muscle Pain Integumentary: reports: Dryness, Flushing Neuro: reports: Headache, Tremors Endocrine: reports: No Symptoms Reported Hematology: reports: No Symptoms Reported Psychiatric: reports: Orientated x3, Anxious, Depressed Other Systems: Reviewed and Negative Patient History - Patient Medical History Hx Anemia: No Hx Asthma: No Hx Chronic Obstructive Pulmonary Disease (COPD): No Hx Cancer: No Hx Cardiac Disorders: No Hx Congestive Heart Failure: No Hx Hypertension: No Hx Hypercholesterolemia: No Hx Pacemaker: No HX Cerebrovascular Accident: No Hx Seizures: No Hx Dementia: No Hx Diabetes: No Hx Gastrointestinal Disorders: Yes (Colitis) Hx Liver Disease: No Hx Genitourinary Disorders: No Hx Sexually Transmitted Disorders: No Hx Renal Disease (ESRD): No Hx Thyroid Disease: No Hx Human Immunodeficiency Virus (HIV): No (last 03/2019) Hx Hepatitis C: No Hx Depression: Yes Hx Suicide Attempt: No (Denies suicidal ideation at this time) Hx Bipolar Disorder: No Hx Schizophrenia: No Other Medical History: PSYCH. HX: PTSD, INSOMNIA, ANXIETY - Patient Surgical History Past Surgical History: No Hx Neurologic Surgery: No Hx Cataract Extraction: No Hx Cardiac Surgery: No Hx Lung Surgery: No Hx Breast Surgery: No Hx Breast Biopsy: No Hx Abdominal Surgery: No Hx Appendectomy: No Hx Cholecystectomy: No Hx Genitourinary Surgery: No Hx Section: No Hx Orthopedic Surgery: No Anesthesia Reaction: No - PPD History Previous Implant?: Yes Documented Results: Negative w/proof Implanted On Prior [facility] Admission?: Yes Date: 04/27/19 PPD to be Administered?: No - Reproductive History Patient is a Female of Child Bearing Age (11 -55 yrs old): Yes Last Menstrual Period: 11/14/19 - Smoking Cessation Smoking history: Current every day smoker Have you smoked in the past 12 months: Yes Aproximately how many cigarettes per day: 10 Hx Chewing Tobacco Use: No Initiated information on smoking cessation: Yes 'Breaking Loose' booklet given: 11/22/19 - Substance & Tx. History Hx Alcohol Use: No Hx Substance Use: Yes Substance Use Type: Heroin, Marijuana, Opiates Hx Substance Use Treatment: Yes ([facility]) - Substances abused Heroin Substance route: Injection Frequency: Daily Amount used: 10 bags Age of first use: 28 Date of last use: 11/22/19 Admission Physical Exam S - Vital Signs Vital Signs: Vital Signs - 24 hr 11/22/19 20:03 Temperature 97.5 F L Pulse Rate 96 H Respiratory 18 Rate Blood Pressure 142/82 - Physical General Appearance: Yes: Moderate Distress, Tremorous, Irritable, Sweating, Anxious HEENTM: Yes: Within Normal Limits Respiratory: Yes: Lungs Clear, Normal Breath Sounds, No Respiratory Distress Neck: Yes: Within Normal Limits Breast: Yes: Breast Exam Deferred Cardiology: Yes: Tachycardia Abdominal: Yes: Normal Bowel Sounds Genitourinary: Yes: Within Normal Limits Back: Yes: Normal Inspection Musculoskeletal: Yes: Back pain, Muscle Pain Extremities: Yes: Tremors Neurological: Yes: Within Normal Limits Integumentary: Yes: Warm Lymphatic: Yes: Within Normal Limits - Diagnostic (1) Depression Current Visit: Yes Status: Chronic Qualifiers: Depression Type: unspecified Qualified Code(s): F32.9 - Major depressive disorder, single episode, unspecified (2) Insomnia Current Visit: Yes Status: Chronic Qualifiers: Insomnia type: unspecified Qualified Code(s): G47.00 - Insomnia, unspecified (3) IVDU (intravenous drug user) Current Visit: No Status: Acute (4) Nicotine dependence Current Visit: Yes Status: Chronic Qualifiers: Nicotine product type: cigarettes Substance use status: uncomplicated Qualified Code(s): F17.210 - Nicotine dependence, cigarettes, uncomplicated Comment: . (5) Opioid dependence with withdrawal Current Visit: Yes Status: Acute Comment: . (6) Anxiety disorder Current Visit: Yes Status: Chronic Qualifiers: Anxiety disorder type: generalized anxiety disorder Qualified Code(s): F41.1 - Generalized anxiety disorder Comment: . (7) PTSD (post-traumatic stress disorder) Current Visit: Yes Status: Chronic Comment: . According to history. (8) Colitis Current Visit: Yes Status: Chronic Cleared for Admission S - Detox or Rehab [facility] Level of Care: Medically Managed Detox Regimen/Protocol: Methadone Claeared for Rehab Admission: No Breathalyzer - Breathalyzer Breathalyzer: 0 Urine Drug Screen - Test Device Lot number: [id number] Expiration date: 06/16/21 - Control Is test valid?: Yes - Results Drug screen NEGATIVE: No Urine drug screen results: THC-Marijuana, AMP-Amphetamines, FEN-Fentanyl, MOP- Opiates, MTD-Methadone Inpatient Rehab Admission - Rehab Decision to Admit Inpatient rehab admission?: No
[2019-11-22] MEDS ORDERED: hydrOXYzine PAMOATE 25 MG CAPSULE (FP) PO PRN (21:08)
[2019-11-22] MEDS ORDERED: MAG HYDROX/AL HYDROX/SIMETH 30 ML UNIT-DOSE CUP PO PRN (21:08)
[2019-11-22] MEDS ORDERED: NICOTINE POLACRILEX 2 MG GUM BUC PRN (21:08)
[2019-11-22] MEDS ORDERED: ACETAMINOPHEN 325 MG TABLET (FP) PO PRN ×2 (21:08)
[2019-11-22] MEDS ORDERED: IBUPROFEN 400 MG TABLET (FP) PO PRN (21:08)
[2019-11-22] MEDS ORDERED: MAGNESIUM HYDROX 2400MG/30ML ORAL SUSPENSION 30 ML CUP PO PRN (21:08)
[2019-11-22] MEDS ORDERED: BISMUTH SUBSALICYLATE 524 MG/30 ML UD PO PRN (21:08)
[2019-11-22] MEDS ORDERED: MAGNESIUM CITRATE 300 ML BOTTLE PO PRN (21:08)
[2019-11-22] MEDS ORDERED: MENTHOL/PHENOL 1 EACH UD MM PRN (21:08)
[2019-11-22] MEDS ORDERED: METHADONE HCL 10 MG TABLET (FOR DETOX USE ONLY) PO ONE (22:00)
[2019-11-22] MEDS: THIAMINE HCL 100 MG TABLET (FP) PO SCH (22:55)
[2019-11-22] MEDS: MELATONIN 5 MG TABLETS PO SCH (22:55)
[2019-11-23] MEDS: ONDANSETRON *ODT* 4 MG TABLET SL PRN (05:52)
[2019-11-23] MEDS ORDERED: METHADONE HCL 10 MG TABLET (FOR DETOX USE ONLY) ONE (08:30)
[2019-11-23] MEDS ORDERED: METHADONE HCL 5 MG TABLET (FOR DETOX USE ONLY) ONE (08:30)
[2019-11-23] MEDS ORDERED: METHADONE (DETOX) 20 MG, METHADONE (DETOX) 5 MG PO ONE (10:00)
[2019-11-23] MEDS ORDERED: hydrOXYzine PAMOATE 25 MG CAPSULE (FP) PO PRN (10:03)
--- NOTE | 2019-11-23 10:05 | CONSULT ---
[facility] Psychiatric Consult - Data Date of interview: 11/23/19 Admission source: Self-referred Identifying data: Ms Fuentes is a 39 years old single female, unemployed, living with her paents seeking detox treatment for opioid Substance Abuse History: Reports history of heroin use. Refer to addiction counselor's summary for further information Medical History: Significant for colitis. Smokes 10 cigarette daily Psychiatric History: Patient is known for one previous admissio to this facility. She was approached at bedside for psychiatric interview and declined to be seen. During her only admission to this facility in April 2019, she was prescribed Belsomra 10 mg/hs prn for insomnia by CECY Segundo after telling him that she was receiving outpatient psychiatric treatment at [facility] for Anxiety Disorder, PTSD and ADHD and she was prescribed Adderall 30 mg/bid and Klonopin 1 mg/bid. Psychiatric Findings - Initial Treatment Plan Initial Treatment Plan: Please reconsult if patient changes her mind regarding psychiatric interview
[2019-11-23] MEDS: NICOTINE 14 MG/24 HOURS TOPICAL PATCH TD SCH (10:17)
[2019-11-23] MEDS: PRENATAL VITAMINS W/ FOLIC ACID TABLET (FP) PO SCH (10:18)
[2019-11-23 10:52] LABS: HEMATOCRIT 36.9 % (32.4-45.2); HEMOGLOBIN 12.1 GM/dL (10.7-15.3); MCH 28.5 pg (25.7-33.7); MCHC 32.9 g/dl (32.0-36.0); MEAN CELL VOLUME 86.7 fl (80-96); MEAN PLT VOLUME 9.7 fl (7.5-11.1); PLATELET COUNT 205 K/MM3 (134-434); RBC 4.25 M/mm3 (3.60-5.2); WHITE BLOOD COUNT 8.9 K/mm3 (4.0-10.0)
[2019-11-23] MEDS ORDERED: cloNIDine HCL 0.1 MG TABLET PO ONE (11:16)
[2019-11-23 11:18] LABS: POTASSIUM 3.6 mmol/L (3.5-5.1)
--- NOTE | 2019-11-23 11:20 | PN ---
BHS COWS - Scale Resting Pulse: 1= [place] 81-100 Sweatin= Chills/Flushing Restless Observation: 1= Difficult to Sit Still Pupil Size: 0= Normal to Room Light Bone or Joint Aches: 2= Severe Diffuse Aches Runny Nose/ Eye Tearin= Runny Nose/Eyes GI Upset > 30mins: 1= Stomach Cramp Tremor Observation of Outstretched Hands: 2= Slight Tremor Visible Yawning Observation: 2= >3x During Session Anxiety or Irritability: 2=Irritable/Anxious Goose Flesh Skin: 3=Piloerection COWS Score: 17 BHS Progress Note (SOAP) Subjective: chills sweats body aches shakes interrupted sleep nasal congestion nausea anxiety Objective: 11/23/19 11:17 Vital Signs Temperature 98.4 F 11/23/19 09:08 Pulse Rate 90 11/23/19 09:08 Respiratory Rate 18 11/23/19 09:08 Blood Pressure 130/73 11/23/19 09:08 O2 Sat by Pulse Oximetry (%) 98 11/23/19 09:08 Laboratory Tests 11/23/19 07:40 WBC 8.9 RBC 4.25 Hgb 12.1 Hct 36.9 MCV 86.7 MCH 28.5 MCHC 32.9 RDW 14.0 Plt Count 205 MPV 9.7 rest of labs pending aaox3 lying in bed no acute distress Assessment: 11/23/19 11:20 withdrawals Plan: continue detox valium 10mg q4hrs prn x 3 days ordered clonidine 0.1mg x one
[2019-11-23 11:29] LABS: ALBUMIN 1.9 g/dl (3.4-5.0); BILIRUBIN,TOTAL 0.6 mg/dL (0.2-1); BLOOD UREA NITROGEN 6.5 mg/dL (7-18); CALCIUM 8.8 mg/dL (8.5-10.1); CREATININE 0.8 mg/dL (0.55-1.3); TOT PROT 7.9 g/dl (6.4-8.2)
--- NOTE | 2019-11-23 11:43 | EKG ---
Test Reason : Blood Pressure : / mmHG Vent. Rate : 098 BPM Atrial Rate : 098 BPM P-R Int : 134 ms QRS Dur : 078 ms QT Int : 332 ms P-R-T Axes : 069 055 039 degrees QTc Int : 423 ms NORMAL SINUS RHYTHM POSSIBLE LEFT ATRIAL ENLARGEMENT BORDERLINE ECG WHEN COMPARED WITH ECG OF 25-APR-2019 18:34, T WAVE VARIATION Confirmed by PINA NAIR MD ([id number]) on 11/23/2019 11:43:03 AM Referred By: Xuan FUNEZ Confirmed By:PINA NAIR MD
[2019-11-23] MEDS: diazePAM 5 MG TABLET PO PRN ×3 (12:12→22:10)
[2019-11-23] MEDS: METHOCARBAMOL 500 MG TABLET PO PRN ×2 (16:40→22:13)
[2019-11-23] MEDS ORDERED: cloNIDine HCL 0.1 MG TABLET PO PRN ×2 (19:02→19:05)
[2019-11-23] MEDS: MELATONIN 5 MG TABLETS PO SCH (22:10)
[2019-11-23] MEDS: THIAMINE HCL 100 MG TABLET (FP) PO SCH (22:10)
[2019-11-24] MEDS: diazePAM 5 MG TABLET PO PRN ×2 (05:45→10:12)
[2019-11-24] MEDS: METHOCARBAMOL 500 MG TABLET PO PRN (05:46)
[2019-11-24 09:57] VITALS: BP 106/58; PULSE 69; TEMP 96.9
[2019-11-24] MEDS ORDERED: METHADONE HCL 10 MG TABLET (FOR DETOX USE ONLY) PO ONE (10:00)
[2019-11-24] MEDS: NICOTINE 14 MG/24 HOURS TOPICAL PATCH TD SCH (10:08)
[2019-11-24] MEDS: PRENATAL VITAMINS W/ FOLIC ACID TABLET (FP) PO SCH (10:09)
--- NOTE | 2019-11-24 10:39 | PN ---
BHS COWS - Scale Resting Pulse: 0= [place] 80 or Below Sweatin= Chills/Flushing Restless Observation: 1= Difficult to Sit Still Pupil Size: 0= Normal to Room Light Bone or Joint Aches: 2= Severe Diffuse Aches Runny Nose/ Eye Tearin= Nasal Congestion GI Upset > 30mins: 0= None Tremor Observation of Outstretched Hands: 1= Tremor [place], Not Seen Yawning Observation: 1= 1-2x During Session Anxiety or Irritability: 2=Irritable/Anxious Goose Flesh Skin: 0=Smooth Skin COWS Score: 9 BHS Progress Note (SOAP) Subjective: sweats shakes body aches interrupted sleep nausea Objective: 11/24/19 10:37 Vital Signs Temperature 96.9 F L 11/24/19 08:42 Pulse Rate 69 11/24/19 08:42 Respiratory Rate 17 11/24/19 08:42 Blood Pressure 106/58 L 11/24/19 08:42 O2 Sat by Pulse Oximetry (%) 100 11/24/19 08:42 Laboratory Tests 11/22/19 11/23/19 11/23/19 21:40 07:40 07:40 WBC 8.9 RBC 4.25 Hgb 12.1 Hct 36.9 MCV 86.7 MCH 28.5 MCHC 32.9 RDW 14.0 Plt Count 205 MPV 9.7 Sodium Potassium Chloride Carbon Dioxide Anion Gap BUN Creatinine Est GFR (CKD-EPI)AfAm Est GFR (CKD-EPI)NonAf Random Glucose Calcium Total Bilirubin AST ALT Alkaline Phosphatase Total Protein Albumin Syphilis Serology Non-reactive COVID-19 (STEVE) Not detected 11/23/19 07:40 WBC RBC Hgb Hct MCV MCH MCHC RDW Plt Count MPV Sodium 140 Potassium 3.6 Chloride 103 Carbon Dioxide 30 Anion Gap 6 L BUN 6.5 L Creatinine 0.8 Est GFR (CKD-EPI)AfAm 108.39 Est GFR (CKD-EPI)NonAf 93.52 Random Glucose 93 Calcium 8.8 Total Bilirubin 0.6 AST 19 ALT 19 Alkaline Phosphatase 68 Total Protein 7.9 Albumin 1.9 L Syphilis Serology COVID-19 (STEVE) labs noted aaox3 lying in bed no acute distress Assessment: 11/24/19 10:37 withdrawals Plan: continue detox zofran prn
[2019-11-24] MEDS: ONDANSETRON *ODT* 4 MG TABLET SL PRN (11:57)
--- NOTE | 2019-11-24 12:30 | PN ---
[facility] Progress Note (SOAP) Subjective: I need to go home to take care of my ailing dad. Objective: 11/24/19 12:28 Vital Signs Temperature 96.9 F L 11/24/19 08:42 Pulse Rate 69 11/24/19 08:42 Respiratory Rate 17 11/24/19 08:42 Blood Pressure 106/58 L 11/24/19 08:42 O2 Sat by Pulse Oximetry (%) 100 11/24/19 08:42 Laboratory Tests 11/22/19 11/22/19 11/23/19 20:04 21:40 07:40 WBC RBC Hgb Hct MCV MCH MCHC RDW Plt Count MPV Sodium Potassium Chloride Carbon Dioxide Anion Gap BUN Creatinine Est GFR (CKD-EPI)AfAm Est GFR (CKD-EPI)NonAf Random Glucose Calcium Total Bilirubin AST ALT Alkaline Phosphatase Total Protein Albumin POC Urine HCG, Qual Negative Syphilis Serology Non-reactive COVID-19 (STEVE) Not detected 11/23/19 11/23/19 07:40 07:40 WBC 8.9 RBC 4.25 Hgb 12.1 Hct 36.9 MCV 86.7 MCH 28.5 MCHC 32.9 RDW 14.0 Plt Count 205 MPV 9.7 Sodium 140 Potassium 3.6 Chloride 103 Carbon Dioxide 30 Anion Gap 6 L BUN 6.5 L Creatinine 0.8 Est GFR (CKD-EPI)AfAm 108.39 Est GFR (CKD-EPI)NonAf 93.52 Random Glucose 93 Calcium 8.8 Total Bilirubin 0.6 AST 19 ALT 19 Alkaline Phosphatase 68 Total Protein 7.9 Albumin 1.9 L POC Urine HCG, Qual Syphilis Serology COVID-19 (STEVE) aaox3 ambulating no acute distress Assessment: 11/24/19 12:29 mild withdrawals pt appears comfortable, no s/s noted little anxiety encouraged to p/u narcan kit at her pharmacy that will be ordered to her local pharmacy. pt in agreement Plan: d/c today.
--- NOTE | 2019-11-24 12:31 | DS ---
[facility] Detox Discharge Summary Admission Date: 11/22/19 Discharge Date: 11/24/19 - History Present History: Opioid Dependence - Physical Exam Results Vital Signs: Vital Signs Temperature 96.9 F L 11/24/19 08:42 Pulse Rate 69 11/24/19 08:42 Respiratory Rate 17 11/24/19 08:42 Blood Pressure 106/58 L 11/24/19 08:42 O2 Sat by Pulse Oximetry (%) 100 11/24/19 08:42 Pertinent Admission Physical Exam Findings: Vital Signs Temperature 96.9 F L 11/24/19 08:42 Pulse Rate 69 11/24/19 08:42 Respiratory Rate 17 11/24/19 08:42 Blood Pressure 106/58 L 11/24/19 08:42 O2 Sat by Pulse Oximetry (%) 100 11/24/19 08:42 Laboratory Tests 11/22/19 11/22/19 11/23/19 20:04 21:40 07:40 WBC RBC Hgb Hct MCV MCH MCHC RDW Plt Count MPV Sodium Potassium Chloride Carbon Dioxide Anion Gap BUN Creatinine Est GFR (CKD-EPI)AfAm Est GFR (CKD-EPI)NonAf Random Glucose Calcium Total Bilirubin AST ALT Alkaline Phosphatase Total Protein Albumin POC Urine HCG, Qual Negative Syphilis Serology Non-reactive COVID-19 (STEVE) Not detected 11/23/19 11/23/19 07:40 07:40 WBC 8.9 RBC 4.25 Hgb 12.1 Hct 36.9 MCV 86.7 MCH 28.5 MCHC 32.9 RDW 14.0 Plt Count 205 MPV 9.7 Sodium 140 Potassium 3.6 Chloride 103 Carbon Dioxide 30 Anion Gap 6 L BUN 6.5 L Creatinine 0.8 Est GFR (CKD-EPI)AfAm 108.39 Est GFR (CKD-EPI)NonAf 93.52 Random Glucose 93 Calcium 8.8 Total Bilirubin 0.6 AST 19 ALT 19 Alkaline Phosphatase 68 Total Protein 7.9 Albumin 1.9 L POC Urine HCG, Qual Syphilis Serology COVID-19 (STEVE) labs noted aaox3 ambulating no acute distress - Treatment Hospital Course: Detox Protocol Followed, Detoxed Safely, Responded well, Discharged Condition Good, Rehab Referral Accepted - Medication Discharge Medications: Ambulatory Orders Aripiprazole [Abilify -] 5 mg PO DAILY 11/22/19 Dextroamphetamine/Amphetamine [Adderall Xr 30 mg Capsule] 30 mg PO TID 11/22/19 Escitalopram Oxalate [Lexapro -] 10 mg PO DAILY 11/22/19 Zolpidem Tartrate [Ambien] 10 mg PO HS 11/22/19 - Diagnosis (1) Opioid dependence with withdrawal Current Visit: Yes Status: Chronic (2) Anxiety disorder Current Visit: Yes Status: Chronic Qualifiers: Anxiety disorder type: generalized anxiety disorder Qualified Code(s): F41.1 - Generalized anxiety disorder (3) Colitis Current Visit: Yes Status: Chronic (4) Depression Current Visit: Yes Status: Chronic Qualifiers: Depression Type: unspecified Qualified Code(s): F32.9 - Major depressive disorder, single episode, unspecified (5) Insomnia Current Visit: Yes Status: Chronic Qualifiers: Insomnia type: unspecified Qualified Code(s): G47.00 - Insomnia, unspecified (6) Nicotine dependence Current Visit: Yes Status: Chronic Qualifiers: Nicotine product type: cigarettes Substance use status: uncomplicated Qualified Code(s): F17.210 - Nicotine dependence, cigarettes, uncomplicated (7) PTSD (post-traumatic stress disorder) Current Visit: Yes Status: Chronic (8) Anxiety Current Visit: No Status: Acute (9) IVDU (intravenous drug user) Current Visit: No Status: Acute (10) Substance-induced anxiety disorder Current Visit: No Status: Acute (11) Substance-induced sleep disorder Current Visit: No Status: Acute (12) ADHD Current Visit: No Status: Chronic - AMA Did Patient Leave Against Medical Advice: No
[2019-11-25] MEDS ORDERED: METHADONE (DETOX) 10 MG, METHADONE (DETOX) 5 MG PO ONE (10:00)
[2019-11-26] MEDS ORDERED: METHADONE HCL 10 MG TABLET (FOR DETOX USE ONLY) PO ONE (10:00)
[2019-11-27] MEDS ORDERED: METHADONE HCL 5 MG TABLET (FOR DETOX USE ONLY) PO ONE (06:00)
== END 2019-11-24 13:15 | disposition home or self-care (01) | DRG 773 ==
LOC: YASAS 19:02 → Y6N 21:29
PROVIDERS: ADMIT Allergy & Immunology; ATTEND Allergy & Immunology
PROC: HZ2ZZZZ Detoxification Services for Substance Abuse Treatment (ICD-10-PCS; principal; 2019-11-22)
DX: F11.23 Opioid dependence with withdrawal (principal); F17.210 Nicotine dependence, cigarettes, uncomplicated; F41.1 Generalized anxiety disorder; F19.280 Other psychoactive substance dependence with psychoactive substance-induced anxiety disorder; F19.282 Other psychoactive substance dependence with psychoactive substance-induced sleep disorder; F32.9 Major depressive disorder, single episode, unspecified; F43.10 Post-traumatic stress disorder, unspecified; G47.00 Insomnia, unspecified; K52.9 Noninfective gastroenteritis and colitis, unspecified; Z56.0 Unemployment, unspecified
CPT/HCPCS: 36415; 80053; 81025; 85027; 86780; 93005; 93010; J0735; Q0162; U0003

== ENCOUNTER 2019-12-15 10:34 | Inpatient (IN) | payer OTHER ==
--- NOTE | 2019-12-15 10:58 | BHS.RME ---
Substance Use & Tx History - Substance Use History Heroin Substance amount: 1 bundle Frequency of use: Daily Substance route: Injection (ex: intravenous or skin popping) Date of Last Use: 12/14/19 Nicotine Substance amount: 2 ciggs Frequency of use: Daily Substance route: Smoking Date of Last Use: 12/15/19 COWS - Scale Resting Pulse: 2= CO 101-120 Sweatin= Chills/Flushing Restless Observation: 1= Difficult to Sit Still Pupil Size: 1= Pupils >than Normal Bone or Joint Aches: 1= Mild Discomfort Runny Nose/ Eye Tearin= Runny Nose/Eyes GI Upset > 30mins: 2= Nausea/Diarrhea Tremor Observation: 1= Tremor [place], Not Seen Yawning Observation: 1= 1-2x During Session Anxiety or Irritability: 2=Irritable/Anxious Goose Flesh Skin: 0=Smooth Skin COWS Score: 14
--- NOTE | 2019-12-15 11:19 | HP ---
COWS - Scale Resting Pulse: 2= SC 101-120 Sweatin= Chills/Flushing Restless Observation: 1= Difficult to Sit Still Pupil Size: 1= Pupils >than Normal Bone or Joint Aches: 1= Mild Discomfort Runny Nose/ Eye Tearin= Runny Nose/Eyes GI Upset > 30mins: 2= Nausea/Diarrhea Tremor Observation: 1= Tremor [place], Not Seen Yawning Observation: 1= 1-2x During Session Anxiety or Irritability: 2=Irritable/Anxious Goose Flesh Skin: 0=Smooth Skin COWS Score: 14 CIWA Score - Admission Criteria [facility]ASAS Guidelines: Admission for Medically Managed Detox: Requires at least one of the followin. CIWA greater than 12 2. Seizures within the past 24 hours 3. Delirium tremens within the past 24 hours 4. Hallucinations within the past 24 hours 5. Acute intervention needed for co occurring medical disorder 6. Acute intervention needed for co occurring psychiatric disorder 7. Severe withdrawal that cannot be handled at a lower level of care (continued vomiting, continued diarrhea, abnormal vital signs) requiring intravenous medication and/or fluids 8. Admitting History and Physical - Admission Chief Complaint: Ms. Fuentes is a 39 yo woman who presents to [facility] requesting admission for opiate use disorder. History of Present Illness: Ms. Fuentes is a 39 yo woman who presents to [facility] requesting admission for opiate use disorder. She was last here in November for detox which she completed early. Review of that admission: given diazepam 10 mg q6h prn in addition to methadone detox. She relapsed yesterday. PMH: ulcerative colitis PSH: left eye intralase x 2 Psych: anxiety disorder, PTSD, depression SOC: lives with parents Legal: drug court mandated admission Substance Use History Heroin Substance amount: 1 bundle Frequency of use: Daily Substance route: Injection (ex: intravenous or skin popping) Date of Last Use: 12/14/19 First use age 31 y Nicotine Substance amount: 2 ciggs Frequency of use: Daily Substance route: Smoking Date of Last Use: 12/15/19 First use May 2008 [place] Dextroamp 10 mg #30, 30 day supply dispensed 11/30, 30 mg tab #90 dispensed, 30 day supply 12/01/19 Alprazolam 1mg #90, 30 day supply, dispensed on 9/22 Zolpidem 10 mg #30, 30 day supply dispensed on 11/23 History Source: Patient Limitations to Obtaining History: No Limitations - Past Medical History Gastrointestinal: Yes: Other (colitis) ...LMP: 11/14/19 - Past Surgical History Past Surgical History: Yes: None - Smoking History Smoking history: Current every day smoker Have you smoked in the past 12 months: Yes Aproximately how many cigarettes per day: 10 - Alcohol/Substance Use Hx Alcohol Use: No History of Substance Use: reports: Heroin Date of Last Use: 04/25/19 - Social History Occupation: unemployed History of Recent Travel: No Admission ROS [facility] Allergies/Adverse Reactions: Allergies Allergy/AdvReac Type Severity Reaction Status Date / Time No Known Allergies Allergy Verified 12/15/19 11:50 Exam Limitations: No Limitations - Ebola screening Have you traveled outside of the country in the last 21 days: No Have you been sick,other than usual withdrawal symptoms: No Do you have a fever: No - Review of Systems Constitutional: Changes in sleep (chronic insomnia), Other (weight gain 36 lbs) EENT: reports: Blurred Vision (left eye surgery) Respiratory: reports: No Symptoms reported Cardiac: reports: No Symptoms Reported GI: reports: Nausea : reports: No Symptoms Reported Musculoskeletal: reports: Back Pain (chronic) Integumentary: reports: No Symptoms Reported Neuro: reports: No Symptoms reported Hematology: reports: No Symptoms Reported Psychiatric: reports: Anxious, Depressed (no SI) Patient History - Patient Medical History Hx Anemia: No Hx Asthma: No Hx Chronic Obstructive Pulmonary Disease (COPD): No Hx Cancer: No Hx Cardiac Disorders: No Hx Congestive Heart Failure: No Hx Hypertension: No Hx Hypercholesterolemia: No Hx Pacemaker: No HX Cerebrovascular Accident: No Hx Seizures: No Hx Dementia: No Hx Diabetes: No Hx Gastrointestinal Disorders: Yes (Colitis) Hx Liver Disease: No Hx Genitourinary Disorders: No Hx Sexually Transmitted Disorders: No Hx Renal Disease (ESRD): No Hx Thyroid Disease: No Hx Human Immunodeficiency Virus (HIV): No (last 03/2019) Hx Hepatitis C: No Hx Depression: Yes Hx Suicide Attempt: No (Denies suicidal ideation at this time) Hx Bipolar Disorder: No Hx Schizophrenia: No - Patient Surgical History Past Surgical History: No Hx Neurologic Surgery: No Hx Cataract Extraction: No Hx Cardiac Surgery: No Hx Lung Surgery: No Hx Breast Surgery: No Hx Breast Biopsy: No Hx Abdominal Surgery: No Hx Appendectomy: No Hx Cholecystectomy: No Hx Genitourinary Surgery: No Hx Section: No Hx Orthopedic Surgery: No Anesthesia Reaction: No - PPD History Date: 04/27/19 - Reproductive History Last Menstrual Period: 11/14/19 - Smoking Cessation Smoking history: Current every day smoker Have you smoked in the past 12 months: Yes Aproximately how many cigarettes per day: 2 Cigars Per Day: 0 Hx Chewing Tobacco Use: No Initiated information on smoking cessation: Yes 'Breaking Loose' booklet given: 12/15/19 Admission Physical Exam [facility] - Physical General Appearance: Yes: No Apparent Distress, Nourished, Appropriately Dressed HEENTM: Yes: EOMI, Hearing grossly Normal, Normocephalic, Normal Voice Respiratory: Yes: Lungs Clear, No Respiratory Distress, No Accessory Muscle Use Neck: Yes: Within Normal Limits, Supple Breast: Yes: Breast Exam Deferred Cardiology: Yes: Regular Rhythm, Regular Rate Abdominal: Yes: Normal Bowel Sounds, Non Tender, Flat, Soft Genitourinary: Yes: Other (deferred) Back: Yes: Normal Inspection Musculoskeletal: Yes: Gait Steady Extremities: Yes: Normal Inspection, Non-Tender Neurological: Yes: Alert, Normal Response Integumentary: Yes: Normal Color, Dry, Warm, Track Barrett (no sign of infection) - Diagnostic (1) Anxiety disorder Current Visit: Yes Status: Chronic Qualifiers: Anxiety disorder type: generalized anxiety disorder Qualified Code(s): F41 .1 - Generalized anxiety disorder Comment: . (2) Insomnia Current Visit: Yes Status: Chronic Qualifiers: Insomnia type: unspecified Qualified Code(s): G47.00 - Insomnia, unspecified (3) Nicotine dependence Current Visit: Yes Status: Acute Qualifiers: Nicotine product type: cigarettes Substance use status: uncomplicated Qualified Code(s): F17.210 - Nicotine dependence, cigarettes, uncomplicated Comment: . (4) Opioid dependence with withdrawal Current Visit: Yes Status: Acute Comment: . (5) PTSD (post-traumatic stress disorder) Current Visit: Yes Status: Chronic Comment: . According to history. Cleared for Admission [facility] - Detox or Rehab [facility] Level of Care: Medically Managed Detox Regimen/Protocol: Methadone Breathalyzer - Breathalyzer Breathalyzer: 0 Urine Drug Screen - Test Device Lot number: [id number] Expiration date: 06/16/21 - Control Is test valid?: Yes - Results Drug screen NEGATIVE: No Urine drug screen results: THC-Marijuana, AMP-Amphetamines, FEN-Fentanyl, MOP- Opiates, MTD-Methadone Inpatient Rehab Admission - Rehab Decision to Admit Inpatient rehab admission?: No
[2019-12-15 11:47] VITALS: BMI 22.8
[2019-12-15] MEDS ORDERED: cloNIDine HCL 0.1 MG TABLET PO PRN (11:59)
[2019-12-15] MEDS ORDERED: ACETAMINOPHEN 325 MG TABLET (FP) PO PRN (11:59)
[2019-12-15] MEDS ORDERED: METHADONE HCL 10 MG TABLET (FOR DETOX USE ONLY) PO ONE (11:59)
[2019-12-15] MEDS ORDERED: BISMUTH SUBSALICYLATE 262 MG/15 ML BTL PO PRN (11:59)
[2019-12-15] MEDS ORDERED: IBUPROFEN 400 MG TABLET (FP) PO PRN (11:59)
[2019-12-15] MEDS ORDERED: MAGNESIUM HYDROX 2400MG/30ML ORAL SUSPENSION 30 ML CUP PO PRN (11:59)
[2019-12-15] MEDS ORDERED: MAGNESIUM CITRATE 300 ML BOTTLE PO PRN (11:59)
[2019-12-15] MEDS ORDERED: MENTHOL/PHENOL 1 EACH UD MM PRN (11:59)
[2019-12-15] MEDS ORDERED: MAG HYDROX/AL HYDROX/SIMETH 30 ML UNIT-DOSE CUP PO PRN (11:59)
--- OUTSIDE RECORDS SUMMARY | 2019-12-15 12:18 | XMS ---
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 Kidney fa ilure eGFR-STEVE 73 mL/min/1.73m2 >=60 NO [facility] The CKD-EPI equation for non- [facility] rican individuals is used to calculate the estimated glomerular filtration rate (GF R). To estimate the GFR for Americans, multiply the provided GFR res ult by 1.16. The CKD-EPI equation is validated in individuals 18 years of age or older. It is less accurate in patients with extremes of muscle mass, restrictio n of dietary protein, ingestion of creatine, extra-renal metabolism of creatinine, or treatment with medications that affect renal tubular creatinine secretion.GFR Categor ies in Chronic Kidney Disease (CKD)GFR Category: GFR (mL/min/1.73 m2): Inte rpretation: G1 90 or greater Normal or high*G2 60-89 Mild decrease* G3a 45-59 Mild to moderate [id number] 30-44 Moderate to s evere decreaseG4 15-29 Severe decreaseG5 14 or less Kidney fa ilure ID Date Data Source [id number] 05/01/2019 09:39:00 PM [facility] Name Value Range Interpretation Code Description Data Mirna rce(s) Supporting Document(s ) Lipase Lvl 31 IU/L 10-59 NO [facility] ID Date Data Source [id number] 05/01/2019 09:39:00 PM EST [facility] Name Value Range Interpretation Description Data Sup porting Code Source(s) Document(s ) Glucose Lvl 106 65-99 HI [facility] mg/dL [facility] BUN 19.0 7.0-21.0 NO [facility] mg/dL [facility] Creatinine 0.87 0.40-1.0 NO [facility] mg/dL 0 [facility] BUN/Creat 21.8 7.0-29.0 NO [facility] Ratio ratio [facility] Sodium Lvl 134 136-146 LO [facility] mmol/L [facility] Potassium Lvl 4.1 3.5-5.1 NO [facility] mmol/L [facility] Chloride 101 98-109 NO [facility] mmol/L [facility] CO2 27 17-33 NO [facility] mmol/L [facility] AGAP 6 5-15 NO [facility] Calcium Lvl 9.0 8.3-10.2 NO [facility] mg/dL [facility] Total Protein 7.0 6.0-8.3 NO [facility] gm/dL [facility] Albumin Lvl 4.0 3.7-5.3 NO [facility] gm/dL [facility] Glob 3.0 2.0-4.5 NO [facility] gm/dL [facility] A/G Ratio 1.3 1.0-2.2 NO [facility] millsce ratio [facility] Bili Total 0.5 0.4-1.1 NO [facility] mg/dL [facility] Alk Phos 47 IU/L 30-125 NO [facility] AST 71 IU/L 10-35 HI [facility] ALT 25 IU/L 7-35 NO [facility] ID Date Data Source [id number] 05/01/2019 09:29:00 PM EST [facility] Name Value Range Interpretation Description Data Sup porting Code Source(s) Document(s ) Neut Auto 52.9 % 40.0-70.0 NO [facility] Lymph Auto 37.4 % 22.0-44.0 NO [facility] [place] Auto 7.8 % 4.0-11.0 NO [facility] Eos Auto 1.0 % 0.0-8.0 NO [facility] Baso Auto 0.9 % 0.0-3.0 NO [facility] Neut 4.3 1.8-7.7 NO [facility] Absolute x10(3)/[facility] Lymph 3.0 1.0-4.8 NO [place] Absolute x10(3)/[facility] [place] 0.6 0.2-1.2 NO [facility] Absolute x10(3)/[facility] Eos Absolute 0.1 0.0-0.9 NO [facility] x10(3)/[facility] Baso 0.1 0.0-0.3 NO [place] Absolute x10(3)/[facility] ID Date Data Source [id number] 05/01/2019 09:29:00 PM EST [facility] Name Value Range Interpretation Description Data Sup porting Code Source(s) Document(s ) WBC 8.1 4.5-11.0 NO [place] x10(3)/[facility] RBC 4.54 4.00-5.20 NO [facility] x10(6)/[facility] Hgb 12.9 12.0-16.0 NO [place] gm/dL [facility] Hct 39.1 % 36.0-46.0 NO [facility] MCV 86 fL 80-100 NO [facility] MCH 28.5 pg 26.0-34.0 NO [facility] MCHC 33.1 31.0-37.0 NO [facility] gm/dL [facility] RDW 13.1 % 11.5-14.5 NO [facility] Platelet 223 150-350 NO [place] x10(3)/[facility] MPV 9.1 fL 7.4-10.4 NO [facility] ID Date Data Source [id number] 05/01/2019 09:29:00 PM EST [facility] Name Value Range Interpretation Code Description Data Mirna rce(s) Supporting Document(s ) U beta Negative NO [facility] ID Date Data Source [id number] 05/01/2019 03:27:00 AM EST [facility] Patient Name: MARIA L FORMANMRN: [id number] Computed TomographyACCESSION EXAM DATE/TIME PROCEDURE ORDERING PROVIDER [id number] 05/01/2019 03:[address] Abdomen Pelvis [place] DO, Auth (Verified) Oral and IV Jonathan Romero For Exam (CT Abdomen Pelvis Oral and IV) Other (Add Reason to Special Instructions)ReportPRO CEDURE: Computed Tomography Abdomen and Pelvis With ContrastCLINICAL HISTORY: A bdominal PainSCRIPT INFORMATION: abd painCOMPARISON: None.TECHNIQUE:Computed Tomography of the abdomen and pelvis was performed. Transaxial scans of the abdom en and pelvis were obtained with intravenous contrast administration. Enteric contras t was administered for this exam.FINDINGS:LUNG BASES:The visualized portions of the lung bases, heart and pericardium are grossly unremarkable.PINA ER:The liver is normal in size and contour.There is no enhancing mass ident ified and the portal vein is patent.BILIARY SYSTEM:There is no biliary ductal dilata tion. . The gallbladder is unremarkable.SPLEEN/PANCREAS:The spleen is grossly unremarkable.The pancreas is grossly unremarkable.ADRENALS/KIDNEYS:Th e adrenals are unremarkable.There are probable cysts in the bilateral kidneys measuring up to 6 mm on the right and 9 mm on the left.VASCULATURE:The abdominal aorta is normal in course and caliber.BOWEL:There is no evidence for small bowel obstructi on.There is no evidence for free intraperitoneal air.The colon is normal in caliber.The appendix is not visualized; however, there are no inflammatory cool es in the right lower quadrant to suggest appendicitis.LYMPH NODES/FLUID:There is no suspicious lymphadenopathy.There is no significant abdominal ascites.BODY WALL: No body wall mass or hernia is identified.BLADDER/GENITALS:The urinary bladder is grossly unremarkable.The gynecological structures are appropriate ly sized for age.BONES:The bones are grossly unremarkable.IMPRESSION:No acute inflamm atory or obstructive changes.Thank you for allowing us to participate in the evalua tion of this patient. Final Dictated: Jeromy Ramos MD 0 05/01/19 03:17Signed: Jeromy Ramos MD 05/01/19 03:27Transcribed by: [facility] Name Value Range Interpretation Code Description Data Mirna rce(s) Supporting Document(s ) ID Date Data Source [id number] 05/01/2019 02:44:00 AM EST [facility] Added by Discern Rule GLB_ADD_GFR_CMP Name Value Range Interpretation Code Description Data Mirna rce(s) Supporting Document(s ) eGFR-AA 76 >=60 NO [facility] mL/min/[address] The CKD-EPI equation for non- [place] r[place] individuals is used to calculate the estimated glomerular filtration rate (GF R). To estimate the GFR for Americans, multiply the provided GFR res ult by 1.16. The CKD-EPI equation is validated in individuals 18 years of age or older. It is less accurate in patients with extremes of muscle mass, restrictio n of dietary protein, ingestion of creatine, extra-renal metabolism of creatinine, or treatment with medications that affect renal tubular creatinine secretion.GFR Categor ies in Chronic Kidney Disease (CKD)GFR Category: GFR (mL/min/1.73 m2): Inte rpretation: G1 90 or greater Normal or high*G2 60-89 Mild decrease* G3a 45-59 Mild to moderate [id number] 30-44 Moderate to s evere decreaseG4 15-29 Severe decreaseG5 14 or less Kidney fa ilure eGFR-STEVE 63 mL/min/1.73m2 >=60 NO [facility] The CKD-EPI equation for non- [place] r[place] individuals is used to calculate the estimated glomerular filtration rate (GF R). To estimate the GFR for Americans, multiply the provided GFR res ult by 1.16. The CKD-EPI equation is validated in individuals 18 years of age or older. It is less accurate in patients with extremes of muscle mass, restrictio n of dietary protein, ingestion of creatine, extra-renal metabolism of creatinine, or treatment with medications that affect renal tubular creatinine secretion.GFR Categor ies in Chronic Kidney Disease (CKD)GFR Category: GFR (mL/min/1.73 m2): Inte rpretation: G1 90 or greater Normal or high*G2 60-89 Mild decrease* G3a 45-59 Mild to moderate [id number] 30-44 Moderate to s evere decreaseG4 15-29 Severe decreaseG5 14 or less Kidney fa ilure ID Date Data Source [id number] 05/01/2019 02:44:00 AM EST [facility] Name Value Range Interpretation Description Data Sup porting Code Source(s) Document(s ) Glucose Lvl 103 65-99 HI [place] mg/dL [facility] BUN 24.0 7.0-21.0 HI [place] mg/dL [facility] Creatinine 0.99 0.40-1.0 NO [facility] mg/dL 0 [facility] BUN/Creat 24.2 7.0-29.0 NO [facility] Ratio ratio [facility] Sodium Lvl 134 136-146 LO [place] mmol/L [facility] Potassium Lvl 3.8 3.5-5.1 NO [facility] mmol/L [facility] Chloride 96 98-109 LO [place] mmol/L [facility] CO2 29 17-33 NO [facility] mmol/L [facility] AGAP 9 5-15 NO [facility] [facility] Calcium Lvl 9.1 8.3-10.2 NO [facility] mg/dL [facility] Total Protein 8.0 6.0-8.3 NO [facility] gm/dL [facility] Albumin Lvl 4.4 3.7-5.3 NO [facility] gm/dL [facility] Glob 3.6 2.0-4.5 NO [place] gm/dL [facility] A/G Ratio 1.2 1.0-2.2 NO [facility] ratio [facility] Bili Total 0.8 0.4-1.1 NO [facility] mg/dL [facility] Alk Phos 52 IU/L 30-125 NO [facility] AST 94 IU/L 10-35 HI [facility] ALT 28 IU/L 7-35 NO [facility] ID Date Data Source [id number] 05/01/2019 02:43:00 AM EST [facility] Name Value Range Interpretation Code Description Data Mirna rce(s) Supporting Document(s ) Lipase Lvl 53 IU/L 10-59 NO [facility] ID Date Data Source [id number] 05/01/2019 02:36:00 AM EST [facility] Name Value Range Interpretation Code Description Data Mirna rce(s) Supporting Document(s ) Beta hCG Negative NO [facility] ID Date Data Source [id number] 05/01/2019 02:18:00 AM EST [facility] Name Value Range Interpretation Description Data Sup porting Code Source(s) Document(s ) Neut Auto 49.9 % 40.0-70.0 NO [facility] Lymph Auto 38.4 % 22.0-44.0 [facility] [place] Auto 9.7 % 4.0-11.0 Critical access hospital Eos Auto 1.2 % 0.0-8.0 Critical access hospital Baso Auto 0.8 % 0.0-3.0 Critical access hospital Neut 4.5 1.8-7.7 NO [place] Absolute x10(3)/[facility] Lymph 3.5 1.0-4.8 NO [place] Absolute x10(3)/[facility] [place] 0.9 0.2-1.2 NO [place] Absolute x10(3)/[facility] Eos Absolute 0.1 0.0-0.9 NO [place] x10(3)/[facility] Baso 0.1 0.0-0.3 NO [place] Absolute x10(3)/[facility] ID Date Data Source [id number] 05/01/2019 02:18:00 AM EST [facility] Name Value Range Interpretation Description Data Sup porting Code Source(s) Document(s ) WBC 9.0 4.5-11.0 NO [place] x10(3)/[facility] RBC 5.05 4.00-5.20 NO [place] x10(6)/[facility] Hgb 14.7 12.0-16.0 NO [place] gm/dL [facility] Hct 42.6 % 36.0-46.0 NO [facility] MCV 84 fL 80-100 NO [facility] MCH 29.1 pg 26.0-34.0 NO [facility] MCHC 34.6 31.0-37.0 NO [facility] gm/dL [facility] RDW 13.0 % 11.5-14.5 NO [facility] Platelet 240 150-350 NO [facility] x10(3)/[facility] MPV 9.5 fL 7.4-10.4 NO [facility] ID Date Data Source [id number] 03/26/2019 06:20:00 PM EST [facility] [id number] [id number] Name Value Range Interpretation Description Data Source(s ) Supporting Code Document(s ) Troponin [facility] ID Date Data Source [id number] 03/26/2019 06:20:00 PM EST [facility] [id number] Hospital [facility] Name Value Range Interpretation Code Description Data Mirna rce(s) Supporting Document(s ) EGFR AA [facility] EGFR Non [facility] - AA [facility] ID Date Data Source [id number] 03/26/2019 06:20:00 PM EST [facility] [id number] Hospital Center Name Value Range Interpretation Description Data Source(s ) Supporting Code Document(s ) Lymph 38.5 % Normal (applies [place] [facility] Percent to non-[facility] results) [facility] [place] Percent 6.7 % Normal (applies [place] [facility] miguel to non-[facility] results) [facility] Neutro 50.1 % Below low normal [place] [facility] Percent - [facility] Eos Percent 3.8 % Normal (applies [place] [facility] [place]rent to non-numeric - [facility] results) [facility] Neutro 3.7 Normal (applies [place] [facility] [place] Absolute x10(3)/mc to non-numeric - [facility] L results) [facility] Lymph 2.9 Normal (applies [place] [facility] [place] Absolute x10(3)/mc to non-numeric - [facility] L results) Hospital [facility] Baso Percent 0.9 % Normal (applies [place] [facility]uel to non-numeric - [facility] results) [facility] Eos Absolute 0.3 Normal (applies [place] [facility] x10(3)/mc to non-numeric - [facility] L results) [facility] [place] 0.5 Normal (applies [place] [facility] Absolute x10(3)/mc to non-numeric - [facility] L results) [facility] Baso 0.1 Normal (applies [place] [facility] Absolute x10(3)/mc to non-numeric - [facility] L results) Hospital Center ID Date Data Source [id number] 03/26/2019 06:20:00 PM EST [facility] [id number] Hospital [facility] Name Value Range Interpretation Description Data Source(s ) Supporting Code Document(s ) Troponin Neg Normal (applies [place] [facility] [place] Prelim (03/26/19 to non-numeric - [facility] 6:20 PM) results) Hospital Center ID Date Data Source [id number] 03/26/2019 06:20:00 PM EST [facility] [id number] Hospital Center Name Value Range Interpretation Code Description Data Mirna rce(s) Supporting Document(s ) PT 11.2 s Normal (applies to [place] [facility] - non-numeric results) [facility] INR 1.0 Normal (applies to [place] [facility] - non-numeric results) [facility] ID Date Data Source [id number] 03/26/2019 06:20:00 PM EST [facility] [id number] Hospital [facility] Name Value Range Interpretation Description Data Source(s ) Supporting Code Document(s ) Ddime 156.0 Normal (applies to [place] [facility] Quant ng/mL DDU non-[facility] results) Hospital Center ID Date Data Source [id number] 03/26/2019 06:20:00 PM EST [facility] [id number] [facility] Name Value Range Interpretation Description Data Source(s ) Supporting Code Document(s ) Glucose Lvl 84 mg/dL Normal (applies [place] [facility] to non-[facility] results) [facility] Sodium Lvl 138 Normal (applies [place] [facility] mmol/L to [facility] results) [facility] BUN 12 mg/dL Normal (applies [place] [facility] [place] to [facility] results[facility] Creatinine 0.67 Normal (applies [place] [facility] mg/dL to [facility] results) [facility] AGPK 10.1 Normal (applies [place] [facility] to [facility] results) [facility] Potassium Lvl 4.1 Normal (applies [place] [facility] mmol/L to [facility] results) [facility] Chloride 100 Normal (applies [place] [facility] mmol/L to [facility] results[facility] CO2 32 Above high normal [place] [facility] mmol/L - [facility] Albumin Lvl 4.5 g/dL Normal (applies [place] [facility] to non-[facility] results) [facility] Calcium Lvl 10.0 Normal (applies [place] [facility] [place] mg/dL to [facility] results) [facility] Total Protein 8.0 g/dL Normal (applies [place] [facility] to [facility] results) [facility] Alk Phos 76 Normal (applies [place] [facility] [place] unit/L to [facility] results) [facility] Bili Total 0.20 Normal (applies [place] [facility] mg/dL to [facility] results) [facility] ALT 35 Normal (applies [place] [facility] [place] unit/L to [facility] results) [facility] AST 39 Above [facility] Hospital Center ID Date Data Source [id number] 03/26/2019 06:20:00 PM EST [facility] [id number] [facility] Name Value Range Interpretation Description Data Source(s ) Supporting Code Document(s ) RBC 4.53 Normal (applies to [facility] jose miguel x10(6)/ non-[facility] L results) Hospital Center WBC 7.4 Normal (applies to [facility] jose miguel x10(3)/[facility] L results) [facility] Hgb 13.1 g/dL Normal ([facility] Hct 40.0 % Normal (applies to [facility] results) [facility] MCV 88.3 fL Normal (applies to [facility] results) [facility] Platelet 251 Normal (applies to [facility] jose miguel x10(3)/[facility] L results) [facility] MCHC 32.9 g/dL Below low normal [facility] an - [facility] RDW 13.6 % Normal (applies to [facility] results) [facility] MCH 29.0 pg Normal (applies to [facility] results) [facility] MPV 9.0 fL Normal (applies to [facility] results) Hospital Center ID Date Data Source [id number] 03/26/2019 06:04:00 PM EST [facility] [id number] [facility] Name Value Range Interpretation Description Data Source(s ) Supporting Code Document(s ) UA RBC 0-4 /HPF Normal (applies [place] to non-numeric [facility] - results) [facility] UA WBC 0-4 /HPF Normal (applies [place] to non-numeric [facility] - results) [facility] UA Squam 5-9 /HPF [place] [facility] UA Bacteria Occasional [place] /HPF [facility] ID Date Data Source [id number] 03/26/2019 06:04:00 PM EST [facility] [id number] [id number] Name Value Range Interpretation Description Data Source(s ) Supporting Code Document(s ) UA Glucose Negative Normal (applies [place] (03/26/19 to non-numeric [facility] - 6:04 PM) results) [facility] UA Protein Negative Normal (applies [place] (03/26/19 to non-numeric [facility] - 6:04 PM) results) [facility] UA Bili Negative Normal (applies [place] (03/26/19 to non-numeric [facility] - 6:04 PM) results) [facility] [facility] UA Normal Normal (applies [place] Urobilinogen (03/26/19 to non-numeric [facility] - 6:04 PM) results) [facility] UA pH 6.5 Normal (applies [place] to non-numeric [facility] - results) [facility] UA Ketones Negative Normal (applies [place] (03/26/19 to non-numeric [facility] - 6:04 PM) results) [facility] UA Nitrite Negative Normal (applies [place] (03/26/19 to non-numeric [facility] - 6:04 PM) results) [facility] UA Blood Negative Normal (applies [place] (03/26/19 to non-numeric [facility] - 6:04 PM) results) [facility] UA Leuk Est Negative Normal (applies [place] (03/26/19 to non-numeric [facility] - 6:04 PM) results) [facility] UA Appear Cloudy [place] *ABN*(03/26 [facility] - 6:04 [facility] PM) [facility] UA Spec Grav Below low normal [facility] UA Color Yellow Normal (applies [place] (03/26/19 to non-numeric [facility] - 6:04 PM) results) [facility] ID Date Data Source [id number] 03/26/2019 06:04:00 PM EST [facility] [id number] [facility] Name Value Range Interpretation Description Data Source(s ) Supporting Code Document(s ) U beta Neg Normal (applies to [facility] jose miguel hCG Ql (03/26/19 non-numeric [facility] 6:04 PM) results) Hospital Center ID Date Data Source [id number] 03/11/2019 08:03:00 PM EST [facility] [id number] [facility] Name Value Range Interpretation Description Data Source(s ) Supporting Code Document(s ) HIV Rapid Non-React Normal [facility] (03/11/19 results) [facility] 8:03 PM) ID Date Data Source [id number] 03/11/2019 08:01:00 PM EST [facility] [id number] [facility] Name Value Range Interpretation Description Data Source(s ) Supporting Code Document(s ) Beta hCG Neg Normal (applies to [facility] jose miguel Ql (03/11/19 non-numeric - [facility] 8:01 PM) results) Hospital Center ID Date Data Source [id number] 03/11/2019 07:34:00 PM EST [facility] [id number] [facility] Name Value Range Interpretation Description Data Source(s ) Supporting Code Document(s ) UA RBC 0-4 /HPF Normal (applies [place] to non-numeric [facility] - results) [facility] UA Squam Occasional [place] Epithelial /HPF [facility] UA WBC 0-4 /HPF Normal (applies [place] to non-numeric [facility] - results) [facility] UA Bacteria Occasional [place] /HPF [facility] ID Date Data Source [id number] 03/11/2019 07:34:[address] PM [place] [facility] [id number] [facility] Name Value Range Interpretation Description Data Source(s ) Supporting Code Document(s ) UA Glucose Negative Normal (applies [place] (03/11/19 to non-numeric [facility] - 7:34 PM) results) [facility] UA Protein 50 mg/dL [facility] UA Bili Negative Normal (applies [place] (03/11/19 to non-numeric [facility] - 7:34 PM) results) [facility] UA pH 6.0 Normal (applies [place] to non-numeric [facility] - results) [facility] UA Normal Normal (applies [place] Urobilinogen (03/11/19 to non-numeric [facility] - 7:34 PM) results) [facility] UA Ketones Negative Normal (applies [place] (03/11/19 to non-numeric [facility] - 7:34 PM) results) [facility] UA Nitrite Negative Normal (applies [place] (03/11/19 to non-numeric [facility] - 7:34 PM) results) [facility] UA Blood Negative Normal (applies [place] (03/11/19 to non-numeric [facility] - 7:34 PM) results) [facility] UA Appear Clear Normal (applies [place] (03/11/19 to non-numeric [facility] - 7:34 PM) results) [facility] UA Spec Grav 1.008 Normal (applies [place] to non-numeric [facility] - results) [facility] UA Leuk Est Negative Normal (applies [place] (03/11/19 to non-numeric [facility] - 7:34 PM) results) [facility] UA Color Light Normal (applies [place] Yellow to non-numeric [facility] - (03/11/19 results) [facility] 7:34 PM) Hospital Center ID Date Data Source [id number] 03/11/2019 07:32:00 PM EST [facility] [id number] Hospital [facility] Name Value Range Interpretation Description Data Source(s ) Supporting Code Document(s ) Troponin [facility] Result - [facility] ID Date Data Source [id number] 03/11/2019 07:32:00 PM EST [facility] [id number] [facility] Name Value Range Interpretation Code Description Data Mirna rce(s) Supporting Document(s ) EGFR Non [facility] - AA [facility] EGFR AA [facility] ID Date Data Source [id number] 03/11/2019 07:32:00 PM EST [facility] [id number] [facility] Name Value Range Interpretation Description Data Source(s ) Supporting Code Document(s ) Neutro 54.9 % Below low normal [place] [facility] Percent - [facility] Lymph 34.3 % Normal (applies [place] [facility] Percent to non-numeric - [facility] results) [facility] Eos Percent 2.2 % Normal (applies [place] [facility] brent to non-numeric - [facility] results) [facility] Baso Percent 0.8 % Normal (applies [place] Pres[facility] jose miguel to non-[facility] results) [facility] [place] Percent 7.8 % Normal (applies [place] [facility] jose miguel to non-numeric - [facility] results) [facility] Lymph 2.6 Normal (applies [place] [facility] n Absolute x10(3)/mc to non-numeric - [place] [facility] results) [facility] [place] 0.6 Normal (applies [place] [facility] Absolute x10(3)/mc to non-numeric - [place] [place] [facility] results) [facility] Neutro 4.2 Normal (applies [place] [facility] Absolute x10(3)/mc to non-numeric - [place] [place] [facility] results) [facility] Eos Absolute 0.2 Normal (applies [place] Pres[facility] jose miguel x10(3)/mc to non-numeric - [place] [facility] results) [facility] Baso 0.1 Normal (applies [place] [facility] Absolute x10(3)/mc to non-numeric - [place] [place] [facility] results) [facility] ID Date Data Source [id number] 03/11/2019 07:32:00 PM EST [facility] [id number] [facility] Name Value Range Interpretation Description Data Source(s ) Supporting Code Document(s ) Troponin Neg Normal (applies [place] [facility] Prelim (03/11/19 to non-numeric - [place] 7:32 PM) results) [facility] ID Date Data Source [id number] 03/11/2019 07:32:00 PM EST [facility] [id number] [facility] Name Value Range Interpretation Description Data Source(s ) Supporting Code Document(s ) Lactic 1.0 Normal (applies to [place] Preste jose miguel Acid Lvl mmol/L non-[facility] results) [facility] ID Date Data Source [id number] 03/11/2019 07:32:00 PM EST [facility] [id number] [facility] Name Value Range Interpretation Description Data Source(s ) Supporting Code Document(s ) WBC 7.7 Normal (applies to [place] [facility] jose miguel x10(3)/mc non-numeric - [place] [facility] results) [facility] RBC 4.90 Normal (applies to [place] [facility] jose miguel x10(6)/mc non-numeric - [place] [facility] results) [facility] Hgb 14.4 g/dL Normal (applies to [place] [facility] jose miguel non-numeric [facility] results) [facility] MCV 88.6 fL Normal (applies to [place] Presbyte jose miguel non-numeric [facility] results) [facility] Hct 43.4 % Normal (applies to [place] Presbyte jose miguel non-numeric [facility] results) [facility] RDW 14.3 % Normal ([facility] results) [facility] MCH 29.5 pg Normal (applies to [place] [facility] jose miguel non-numeric - [facility] results) [facility] MCHC 33.3 g/dL Normal (applies to [facility] non-[facility] results) [facility] MPV 9.2 fL Normal (applies to [facility] non-[facility] results) [facility] Platelet 281 Normal (applies to [facility] x10(3)/mc non-[facility] - [facility] L results) [facility] ID Date Data Source [id number] 03/11/2019 07:32:00 PM EST [facility] [id number] [facility] Name Value Range Interpretation Code Description Data Mirna rce(s) Supporting Document(s ) PT 11.2 s Normal [facility] results) [facility] INR 1.0 Normal (applies to [facility] - non-numeric results) [facility] ID Date Data Source [id number] 03/11/2019 07:32:00 PM EST [facility] [id number] [facility] Name Value Range Interpretation Description Data Source(s ) Supporting Code Document(s ) Glucose Lvl 87 mg/dL Normal (applies [place] [facility] brent to [facility] results) [facility] BUN 10 mg/dL Normal (applies [place] [facility] n to [facility] results) [facility] Sodium Lvl 139 Normal (applies [place] [facility] an mmol/L to non-[facility] results) [facility] Potassium Lvl 4.4 Normal (applies [place] Presbyt erian mmol/L to non-[facility] results) [facility] Creatinine 0.60 Normal (applies [place] [facility] an mg/dL to non-[facility] results) [facility] Chloride 100 Normal (applies [place] [facility] n mmol/L to [facility] results) [facility] AGPK 11.4 Normal (applies [place] [facility] to non-[facility] results) [facility] CO2 32 Above high normal [facility] mmol/L - [facility] Calcium Lvl 9.7 Normal (applies [place] [facility] brent mg/dL to non-numeric - [place] results) [facility] Total Protein 8.3 g/dL Above high normal [place] Presb yterian - [facility] Albumin Lvl 4.6 g/dL Normal (applies [place] [facility] brent to non-[facility] results) [facility] Alk Phos 74 Normal (applies [place] [facility] n unit/L to non-[facility] results) [facility] ALT 30 Normal (applies [place] [facility] n unit/L to non-[facility] results[facility] AST 45 Above high normal [facility] unit/L - [facility] Bili Total 0.30 Normal (applies [facility] mg/dL to [facility] results) [facility] ID Date Data Source [id number] 01/19/2019 10:45:00 AM EST [facility] [id number] [facility] Name Value Range Interpretation Code Description Data Mirna rce(s) Supporting Document(s ) RADRPT <table [facility] border="1" - [facility] width="95%"><col Hospital Cent er group><col width="25%"></co l><col width="25%"></co l><col width="25%"></co l><col width="25%"></co l></colgroup><tb janina><tr><td>Exam Date Time</td><td>Pro cedure</td><td>P erforming Provider</td><td >Status</td></tr ><tr><td> 9 11:00 AM</td><td>US Transvaginal Non-OB</td><td>A LBERT RDMS, DONATA; </td><td>Auth (Verified)</td>< /tr></tbody></ta ble><paragraph>N otes:</paragraph ><paragraph>(US Transvaginal Non-OB) Reason For Exam: Pain, Abdominal,</para graph><paragraph ><content>Report </content>
< content ID="[id number]">EXAMINATI ON: Pelvic ultrasound. Endovaginal .

Delfino rison was made to the recent study dated 10/19/2018 demonstrating
no significant change.
<br/ >HISTORY: Pain .

LMP : 2 weeks ago .

Real- time pelvic ultrasound has been performed illustrating a
retroverte d uterus that measures 6.4 x 4.5 x 3.5 cm. The endometrial
echo stripe measures 9 mm .
No focal lesions are demonstrated.

The left ovary measures 3.2 x 2.3 x 2.2 cm . There is interval
dem onstration of a simple follicular cyst that measures 2.5 cm. Normal
blood flow. No torsion.. Normal blood flow.

T he right ovary measures 2.1 x 2 x 1.4 cm . No adnexal lesions.
Normal blood flow.

T here is no free fluid in the cul-de-sac.

IMPRESSION:

1. No focal lesions of the uterus. The endometrial echo stripe
measu res 9 mm .

2. Left ovary/adnexa: A simple cyst measures 2.5 cm. Normal blood
flow. No torsion. </content>
< content> Final

D ictated: 01/19/2019 11:13 am EVANGELIST BEARD MD

Signed (Electronic Signature): 01/19/2019 11:13 am
Signed by: EVANGELIST BEARD MD
Trans cribed by: MAU Technologist: ELLE </content></para graph> ID Date Data Source [id number] 01/19/2019 07:57:00 AM EST [facility] [id number] [facility] Name Value Range Interpretation Code Description Data Mirna rce(s) Supporting Document(s ) EGFR AA [facility] EGFR Non [facility] - AA [facility] ID Date Data Source [id number] 01/19/2019 07:57:00 AM EST [facility] [id number] [facility] Name Value Range Interpretation Description Data Source(s ) Supporting Code Document(s ) Lymph Man 14.0 % Below low normal [email or web address] Segs Man 79.0 % Above high normal [facility] Band Man 4.0 % Normal (applies [place] [facility] n to [facility] results) [facility] Eos Man 0.0 % Normal (applies [place] [facility] n to [facility] results) [facility] Monocyte 2.0 % Normal (applies [place] [facility] Man to [facility] results) [facility] Basophil 0.0 % Normal (applies [place] [facility] n Man to [facility] results) [facility] Atyp Lymph 1.0 % Above high normal [facility] Plts Morph Plt Normal (applies [place] [facility] an Adequate to non-[facility] (01/19/19 results) [facility] 7:57 AM) RBC Morph Normal Normal (applies [place] [facility] n (01/19/19 to non-[facility] 7:57 AM) results) [facility] ID Date Data Source [id number] 01/19/2019 07:57:00 AM EST [facility] [id number] [facility] Name Value Range Interpretation Description Data Source(s ) Supporting Code Document(s ) Lymph 13.3 % Below low normal [facility] Neutro 84.0 % Above high normal [facility] brent [facility] Neutro 7.7 Normal (applies [place] [facility] n Absolute x10(3)/mc to non-numeric - [place] L results) [facility] Baso Percent 0.6 % Normal (applies [place] [facility] jose miguel to non-numeric - [facility] results) [facility] Eos Percent 0.1 % Normal (applies [place] [facility] brent to non-numeric - [place] results) [facility] [place] Percent 2.0 % Normal (applies [place] [facility] jose miguel to non-numeric - [place] results) [facility] Lymph 1.2 Normal (applies [place] [facility] n Absolute x10(3)/mc to non-numeric - [place] L results) [facility] Eos Absolute 0.0 Normal (applies [place] [facility] jose miguel x10(3)/mc to non-numeric - [place] L results) [facility] [place] 0.2 Normal (applies [place] [facility] Absolute x10(3)/mc to non-numeric - [place] L results) [facility] Baso 0.1 Normal (applies [place] [facility] Absolute x10(3)/mc to non-numeric - [place] L results) [facility] ID Date Data Source [id number] 01/19/2019 07:57:00 AM EST [facility] [id number] [facility] Name Value Range Interpretation Code Description Data Mirna rce(s) Supporting Document(s ) PT 12.2 s Normal (applies to [place] [facility] jose miguel - non-numeric results) [facility] INR 1.0 Normal (applies to [place] [facility] jose miguel - non-numeric results) [facility] ID Date Data Source [id number] 01/19/2019 07:57:00 AM EST [facility] [id number] [facility] Name Value Range Interpretation Description Data Source(s ) Supporting Code Document(s ) Lipase Lvl 36 unit/L Normal (applies to [place] Presbyt erian non-numeric - [facility] results) Hospital [facility] ID Date Data Source [id number] 01/19/2019 07:57:00 AM EST [place] Pres byterian - [facility] [id number] Hospital [facility] Name Value Range Interpretation Description Data Source(s ) Supporting Code Document(s ) Bili 0.40 Above high normal [facility] - [facility] ID Date Data Source [id number] 01/19/2019 07:57:00 AM EST [facility] [id number] [facility] Name Value Range Interpretation Description Data Source(s ) Supporting Code Document(s ) Sodium Lvl 140 Normal (applies [place] [facility]i an mmol/L to non-[facility] results) [facility] BUN 14 mg/dL Normal (applies [place] [facility] n to non[facility] results) [facility] Glucose Lvl 129 Above high normal [facility]dL - [facility] Creatinine 0.51 Below low normal [facility]dL - [facility] CO2 28 Normal (applies [place] [facility] n mmol/L to non-[facility] results) [facility] Potassium Lvl 4.1 Normal (applies [place] Presbyt erian mmol/L to [facility] results) [facility] Chloride 100 Normal (applies [place] [facility] n mmol/L to [facility] results) [facility] AGPK 16.1 Normal (applies [place] [facility] n to [facility] results) [facility] Total Protein 8.7 g/dL Above high normal [facility] Albumin Lvl 4.8 g/dL Normal (applies [place] [facility] brent to non-[facility] results) [facility] Calcium Lvl 10.2 Normal (applies [place] [facility]byter brent mg/dL to non-[facility] results) [facility] Alk Phos 81 Normal (applies [place] [facility] n unit/L to non-[facility] results) [facility] AST 36 Normal (applies [place] [facility] n unit/L to non-[facility] results) [facility] Bili Total 0.60 Normal (applies [place] [facility]i an mg/dL to non-[facility] results) [facility] ALT 17 Normal (applies [place] [facility] n unit/L to non-numeric - [place] results) [facility] ID Date Data Source [id number] 01/19/2019 07:57:00 AM EST [facility] [id number] [facility] Name Value Range Interpretation Description Data Source(s ) Supporting Code Document(s ) WBC 9.1 Normal [facility] non-numeric - [facility] L results) [facility] RBC 4.77 Normal (applies to [facility] jose miguel x10(6)/ non-numeric - [facility] L results) [facility] MCV 85.8 fL Normal (applies to [facility] results) [facility] Hgb 14.0 g/dL Normal (applies to [facility] results) [facility] Hct 40.9 % Normal (applies to [facility] results) [facility] MCH 29.3 pg Normal (applies to [facility] results) [facility] Platelet 298 Normal (applies to [facility] x10(3)/ non-[facility] - [facility] L results) [facility] MPV 9.7 fL Normal (applies to [facility] results) [facility] RDW 14.1 % Normal (applies to [facility] results) [facility] MCHC 34.2 g/dL Normal (applies to [facility] results) [facility] ID Date Data Source [id number] 01/19/2019 07:57:00 AM EST [facility] [id number] [facility] Name Value Range Interpretation Description Data Source(s ) Supporting Code Document(s ) Amylase Lvl 72 unit/L Normal (applies to [facility] results) Hospital [facility] ID Date Data Source [id number] 12/15/2018 07:52:00 PM EDT [facility] [id number] [facility] Name Value Range Interpretation Description Data Source(s ) Supporting Code Document(s ) UA Glucose Negative Normal (applies [place] (12/15/18 to non-numeric [facility] - 7:52 PM) results) [facility] UA Bili Negative Normal (applies [place] (12/15/18 to non-numeric [facility] - 7:52 PM) results) [facility] UA Protein Negative Normal (applies [place] (12/15/18 to non-numeric [facility] - 7:52 PM) results) [facility] UA Normal Normal (applies [place] Urobilinogen (12/15/18 to non-numeric [facility] - 7:52 PM) results) [facility] UA Blood Negative Normal (applies [place] (12/15/18 to non-numeric [facility] - 7:52 PM) results) [facility] UA Ketones Negative Normal (applies [place] (12/15/18 to non-numeric [facility] - 7:52 PM) results) [facility] UA pH 6.0 Normal (applies [place] to non-numeric [facility] - results) [facility] UA Nitrite Negative Normal (applies [place] (12/15/18 to non-numeric [facility] - 7:52 PM) results) [facility] UA Leuk Est Negative Normal (applies [place] (12/15/18 to non-numeric [facility] - 7:52 PM) results) [facility] UA Appear Clear Normal (applies [place] (12/15/18 to non-numeric [facility] - 7:52 PM) results) [facility] UA Spec Grav Below low normal [facility] - [facility] UA Color Light Normal (applies [place] Yellow to non-numeric [facility] - (12/15/18 results) [facility] 7:52 PM) Hospital Center ID Date Data Source [id number] 12/15/2018 07:23:00 PM EDT [facility] [id number] Hospital [facility] Name Value Range Interpretation Description Data Source(s ) Supporting Code Document(s ) Beta hCG 2.92 [place] [facility] Quant mIU/mL - [facility] ID Date Data Source [id number] 12/15/2018 05:25:00 PM EDT [facility] [id number] [facility] Name Value Range Interpretation Code Description Data Mirna rce(s) Supporting Document(s ) RADRPT <table [facility] border="1" - [facility] width="95%"><col Hospital Cent er group><col width="25%"></co l><col width="25%"></co l><col width="25%"></co l><col width="25%"></co l></colgroup><tb janina><tr><td>Exam Date Time</td><td>Pro cedure</td><td>P erforming Provider</td><td >Status</td></tr ><tr><td>12/15/18 6:00 PM</td><td>US 1st Trimester</td><t d>CHASIDY BRITT; </td><td>Auth (Verified)</td>< /tr></tbody></ta ble><paragraph>N otes:</paragraph ><paragraph>(US 1st Trimester) Reason For Exam: Hemorrhage Early Preg</paragraph> <paragraph><cont ent>Report</cont ent>
<conten t ID="[id number]">First Trimester Pelvic Duplex Doppler Ultrasound.

CLINICAL HISTORY: First trimester with bleeding

An ultrasound of the pelvis was performed. Arterial color flow imaging
and spectral analysis was also performed. Images reveal the uterus to
measure 7 x 4.8 x 3.6 cm. Uterus is retroverted. No intrauterine<br/ >gestational sac is visualized. The right ovary measures 3.6 x 2.7 x
1.8 cm. 3 cystic lesions are seen in the right ovary, the largest
guerline uring 1.2 x 1.1 cm and the second largest measuring 0.6 x 0.8 cm.
The left ovary measures 2.9 x 2.1 x 1.6 cm. 2 hypoechoic lesions are
seen in the left ovary, the largest measuring 1 x 1.1 cm and the
second largest measures 1 x 0.9 cm. Both ovaries demonstrate flow. No
free fluid is noted in the cul-de-sac.
IMPRESSION:
1. No intrauterine gestational sac seen. This could represent an early
gestat ion versus ectopic versus a miscarriage. Suggest
jillian elation with serial beta hCGs and follow-up ultrasound.
2. Bilateral cystic lesions in the ovaries probably represent simple
cysts . Recommend follow-up ultrasound. </content>
< content> Final

D ictated: 12/15/2018 7:06 pm DENNIS HONEYCUTT MD
<br/ >Signed (Electronic Signature): 12/15/2018 7:06 pm
Signed by: DENNIS HONEYCUTT MD
Bauman scribed by: DELPHINE Technologist: RIRI </content></para graph> ID Date Data Source [id number] 11/17/2018 10:20:00 PM EDT [facility] [id number] [facility] Name Value Range Interpretation Description Data Source(s ) Supporting Code Document(s ) U beta Pos [facility] hCG Ql *ABN*(11/17 [facility] 10:20 Hospital Center PM) ID Date Data Source [id number] 10/29/2018 01:17:00 PM EDT [facility] [id number] [facility] Name Value Range Interpretation Code Description Data Mirna rce(s) Supporting Document(s ) EGFR Non [facility] - AA [facility] EGFR AA [facility] ID Date Data Source [id number] 10/29/2018 01:17:00 PM EDT [facility] [id number] Hospital [facility] Name Value Range Interpretation Description Data Source(s ) Supporting Code Document(s ) Segs Man 81.0 % Above high [place] normal [facility] Band Man 1.0 % Normal (applies [place] to non-numeric [facility] - results) [facility] Monocyte Man 2.0 % Normal (applies [place] to non-numeric [facility] - results) [facility] Lymph Man 16.0 % Below low normal [place] [facility] Basophil Man 0.0 % Normal (applies [place] to non-numeric [facility] - results) [facility] Eos Man 0.0 % Normal (applies [place] to non-numeric [facility] - results) [facility] Plts Morph Plt Adequate Normal (applies [place] (10/29/18 to non-numeric [facility] - 1:17 PM) results) [facility] RBC Morph Abnormal Normal (applies [place] (10/29/18 to non-numeric [facility] - 1:17 PM) results) [facility] Anisocyte 1+ (10/29/18 Normal (applies [place] 1:17 PM) to non-numeric [facility] - results) [facility] Ovalocyte Occasional Normal (applies [place] (10/29/18 to non-numeric [facility] - 1:17 PM) results) [facility] ID Date Data Source [id number] 10/29/2018 01:17:00 PM EDT [facility] [id number] [facility] Name Value Range Interpretation Description Data Source(s ) Supporting Code Document(s ) Neutro 83.4 % Above high normal [place] [facility] Percent - [facility] Lymph 13.7 % Below low normal [place] [facility] Percent - [facility] [place] Percent 2.4 % Normal (applies [place] [facility] miguel to non-numeric - [facility] results) [facility] Baso Percent 0.4 % Normal (applies [place] [facility] miguel to non-numeric - [facility] results) [facility] Eos Percent 0.1 % Normal (applies [place] [facility] to non-[facility] results) [facility] Neutro 9.4 Above high normal [place] [facility] Absolute x10(3)/mc - [facility] L [facility] Eos Absolute 0.0 Normal (applies [place] [facility] miguel x10(3)/mc to non-[facility] L results) [facility] [place] 0.3 Normal (applies [place] [facility] Absolute x10(3)/mc to non-numeric - [facility] L results) [facility] Lymph 1.5 Normal (applies [place] [facility] Absolute x10(3)/mc to non-numeric - [facility] L results) [facility] Baso 0.0 Normal (applies [place] [facility] Absolute x10(3)/mc to non-[facility] L results) Hospital [facility] ID Date Data Source [id number] 10/29/2018 01:17:00 PM EDT [facility] [id number] [facility] Name Value Range Interpretation Description Data Source(s ) Supporting Code Document(s ) Beta hCG Neg Normal (applies to [facility] jose miguel Ql (10/29/18 non-[facility] 1:17 PM) results) Hospital Center ID Date Data Source [id number] 10/29/2018 01:17:00 PM EDT [facility] [id number] [facility] Name Value Range Interpretation Code Description Data Mirna rce(s) Supporting Document(s ) PT 11.9 s Normal (applies to [place] [facility] miguel - non-numeric results) [facility] INR 1.0 Normal (applies to [facility] jose miguel - non-numeric results) [facility] ID Date Data Source [id number] 10/29/2018 01:17:00 PM EDT [facility] [id number] [facility] Name Value Range Interpretation Description Data Source(s ) Supporting Code Document(s ) Lipase Lvl 59 unit/L Normal (applies to [facility] erian non-[facility] results) Hospital [facility] ID Date Data Source [id number] 10/29/2018 01:17:00 PM EDT [facility] [id number] [facility] Name Value Range Interpretation Description Data Source(s ) Supporting Code Document(s ) Bili 0.20 Normal (applies to [place] [facility] miguel Direct mg/dL non-[facility] results) Hospital [facility] ID Date Data Source [id number] 10/29/2018 01:17:00 PM EDT [facility] [id number] [facility] Name Value Range Interpretation Description Data Source(s ) Supporting Code Document(s ) BUN 14 mg/dL Normal (applies [place] [facility] to non[facility] results) [facility] Glucose Lvl 112 Above high normal [place] [facility] mg/dL - [facility] Sodium Lvl 143 Normal (applies [place] [facility] mmol/L to non[facility] results) [facility] Creatinine 0.65 Normal (applies [place] [facility] mg/dL to non-[facility] results) [facility] Potassium Lvl 3.7 Normal (applies [place] [facility] mmol/L to non-[facility] results) [facility] AGPK 13.7 Normal (applies [place] [facility] to non[facility] results) [facility] Chloride 102 Normal (applies [place] [facility] mmol/L to non[facility] results) [facility] Calcium Lvl 9.9 Normal (applies [place] [facility] mg/dL to non-[facility] results) [facility] CO2 31 Above high normal [place] [facility] mmol/L - [facility] AST 34 Normal (applies [place] [facility] unit/L to non[facility] results) [facility] Total Protein 8.0 g/dL Normal (applies [place] [facility] to non[facility] results) [facility] ALT 36 Normal (applies [place] [facility] unit/L to non[facility] results) [facility] Albumin Lvl 4.5 g/dL Normal (applies [place] [facility] to [facility] results) [facility] Bili Total 0.30 Normal ([facility]lies [place] [facility] to [facility] results) [facility] Alk Phos 77 Normal (applies [facility] unit/L to [facility] results) [facility] ID Date Data Source [id number] 10/29/2018 01:17:00 PM EDT [facility] [id number] [facility] Name Value Range Interpretation Description Data Source(s ) Supporting Code Document(s ) WBC 11.2 Above high normal [facility] brent x10(3)/ - [facility] RBC 4.79 Normal (applies to [facility] jose miguel x10(6)/[facility] L results) [facility] Hgb 13.9 g/dL Normal (applies to [facility] results) [facility] MCV 85.6 fL Normal (applies to [facility] results) [facility] Hct 41.0 % Normal (applies to [facility] results) [facility] MCHC 33.8 g/dL Normal (applies to [facility] results) [facility] RDW 14.5 % Normal (applies to [facility] results) [facility] MCH 29.0 pg Normal (applies to [facility] results) [facility] MPV 10.0 fL Normal (applies to [facility] results) [facility] Platelet 265 [facility] L results) Hospital [facility] ID Date Data Source [id number] 10/29/2018 01:17:00 PM EDT [facility] [id number] [facility] Name Value Range Interpretation Description Data Source(s ) Supporting Code Document(s ) Amylase Lvl 81 unit/L Normal (applies to [facility] non-numeric - [facility] results) Hospital [facility] ID Date Data Source [id number] 10/19/2018 01:55:19 PM EDT [facility] [id number] [facility] Name Value Range Interpretation Code Description Data Mirna rce(s) Supporting Document(s ) RADRPT <table [facility] border="1" - [facility] width="95%"><col Hospital Cent er group><col width="25%"></co l><col width="25%"></co l><col width="25%"></co l><col width="25%"></co l></colgroup><tb janina><tr><td>Exam Date Time</td><td>Pro cedure</td><td>P erforming Provider</td><td >Status</td></tr ><tr><td>10/19/18 1:55 PM</td><td>US Transvaginal Non-OB</td><td>B CARMEN DIAS; </td><td>Auth (Verified)</td>< /tr></tbody></ta ble><paragraph>N otes:</paragraph ><paragraph>(US Transvaginal Non-OB) Reason For Exam: Pelvic Pain</paragraph> <paragraph><cont ent>Report</cont ent>
<conten t ID="[id number]">Transvagi nal Pelvic Duplex Doppler Ultrasound.

CLINICAL HISTORY: Pelvic pain.

A n ultrasound of the pelvis was performed. Arterial color flow imaging
and spectral analysis was also performed. Images reveal the uterus to
measure 6.3 x 3.5 x 4.4 cm. No uterine masses are visualized. The
uterus is retroverted. The endometrial echo measures 0.7 cm. The
right ovary measures 3.4 x 2.7 x 2.6 cm. The left ovary measures 2.4 x
2.3 x 2.5 cm. Multiple bilateral follicles are seen. No adnexal masses
are visualized. Both ovaries demonstrate flow. Trace free fluid is
noted in the cul-de-sac.
IMPRESSION:

1. Trace free fluid in cul-de-sac.
2. No evidence of ovarian torsion.
3. Normal-appearing uterus which is retroverted </content>
< content> Final

D ictated: 10/19/2018 2:06 pm DENNIS HONEYCUTT MD
<br/ >Signed (Electronic Signature): 10/19/2018 2:06 pm
Signed by: DENNIS HONEYCUTT MD
Bauman scribed by: DELPHINE Technologist: MYNOR </content></para graph> ID Date Data Source [id number] 10/19/2018 12:45:00 PM EDT [facility] [id number] [facility] Name Value Range Interpretation Code Description Data Mirna rce(s) Supporting Document(s ) EGFR AA [facility] EGFR Non [facility] - AA [facility] ID Date Data Source [id number] 10/19/2018 12:45:00 PM EDT [facility] [id number] [facility] Name Value Range Interpretation Description Data Source(s ) Supporting Code Document(s ) Neutro 74.7 % Normal (applies [place] [facility] Percent to [facility] results) [facility] Lymph 20.6 % Normal (applies [place] [facility] Percent to non[facility] results) [facility] Eos Percent 0.1 % Normal (applies [place] [facility] to non[facility] results) [facility] [place] Percent 4.0 % Normal (applies [place] [facility] miguel to non[facility] results) [facility] Baso Percent 0.6 % Normal (applies [place] [facility] jose miguel to non-numeric - [facility] results) [facility] Lymph 1.4 Normal (applies [place] [facility] Absolute x10(3)/mc to non-numeric - [facility] results) [facility] [place] 0.3 Normal (applies [place] [facility] Absolute x10(3)/mc to non-numeric - [facility] results) [facility] Neutro 5.0 Normal (applies [place] [facility] Absolute x10(3)/mc to non-numeric - [facility] results) [facility] Eos Absolute 0.0 Normal (applies [place] [facility] miguel x10(3)/mc to non-numeric - [facility] results) [facility] Baso 0.0 Normal (applies [place] [facility] Absolute x10(3)/mc to non-numeric - [facility] results) [facility] ID Date Data Source [id number] 10/19/2018 12:45:00 PM EDT [facility] [id number] [facility] Name Value Range Interpretation Code Description Data Mirna rce(s) Supporting Document(s ) PT 12.9 s Normal (applies to [place] [facility] miguel - non-numeric results) [facility] INR 1.1 Normal (applies to [place] [facility] miguel - non-numeric results) [facility] ID Date Data Source [id number] 10/19/2018 12:45:00 PM EDT [facility] [id number] [facility] Name Value Range Interpretation Description Data Source(s ) Supporting Code Document(s ) Lipase Lvl 26 unit/L Normal (applies to [email or web address] non-numeric [facility] results) Hospital [facility] ID Date Data Source [id number] 10/19/2018 12:45:00 PM EDT [facility] [id number] [facility] Name Value Range Interpretation Code Description Data Mirna rce(s) Supporting Document(s ) Bili Direct Normal (applies to [facility] non-[facility] results) Hospital [facility] ID Date Data Source [id number] 10/19/2018 12:45:00 PM EDT [facility] [id number] [facility] Name Value Range Interpretation Description Data Source(s ) Supporting Code Document(s ) Glucose Lvl 124 Above high normal [place] [facility] mg/dL - [facility] BUN 11 mg/dL Normal (applies [place] [facility] to non[facility] results) [facility] Sodium Lvl 140 Normal (applies [place] [facility] mmol/L to non[facility] results) [facility] Creatinine 0.63 Normal (applies [place] [facility] mg/dL to non[facility] results) [facility] AGPK 9.5 Normal (applies [place] [facility] to [facility] results) [facility] Potassium Lvl 4.5 Normal (applies [place] [facility] mmol/L to non[facility] results) [facility] CO2 29 Normal (applies [place] [facility] mmol/L to non[facility] results) [facility] Chloride 106 Normal (applies [place] [facility] mmol/L to non[facility] results) [facility] Total Protein 8.0 g/dL Normal (applies [place] [facility] to non[facility] results) [facility] AST 36 Normal (applies [place] [facility] unit/L to [facility] results) [facility] Albumin Lvl 4.3 g/dL Normal (applies [place] [facility] to non[facility] results) [facility] Calcium Lvl 10.1 Normal (applies [place] [facility] mg/dL to non[facility] results) [facility] ALT 24 Normal (applies [place] [facility] unit/L to non[facility] results[facility] Alk Phos 82 Normal (applies [place] [facility] unit/L to non[facility] results) [facility] Bili Total 0.50 Normal (applies [place] [facility] mg/dL to non[facility] results) [facility] ID Date Data Source [id number] 10/19/2018 12:45:00 PM EDT [facility] [id number] [facility] Name Value Range Interpretation Description Data Source(s ) Supporting Code Document(s ) Hgb 13.9 g/dL Normal (applies to [facility] results) [facility] Hct 40.1 % Normal (applies to [facility] results) [facility] RBC 4.75 Normal (applies to [facility] x10(6)/[facility] L results) [facility] WBC 6.8 Normal (applies to [facility] x10(3)/[facility] L results) [facility] MCHC 34.6 g/dL Normal (applies to [facility] results) [facility] MCH 29.2 pg Normal (applies to [facility] results) [facility] MCV 84.5 fL Normal (applies to [facility] results) [facility] RDW 14.9 % Above high normal [facility] Platelet 240 Normal (applies to [facility] x10(3)/[facility] L results) [facility] MPV 9.0 fL Normal (applies to [facility] results) [facility] ID Date Data Source [id number] 10/19/2018 12:45:00 PM EDT [facility] [id number] [facility] Name Value Range Interpretation Description Data Source(s ) Supporting Code Document(s ) Amylase Lvl 45 unit/L Normal (applies to [facility]) Hospital Center ID Date Data Source [id number] 10/19/2018 12:29:00 PM EDT [facility] [id number] [facility] Name Value Range Interpretation Description Data Source(s ) Supporting Code Document(s ) U beta Neg Normal (applies to [place] [facility]uel hCG Ql (10/19/18 non-numeric - [facility] 12:29 PM) results) Hospital [facility] ID Date Data Source [id number] 10/19/2018 12:29:00 PM EDT [place] [facility] - [facility] [id number] [facility] Name Value Range Interpretation Description Data Source(s ) Supporting Code Document(s ) UA Protein Negative Normal (applies [place] (10/19/18 to non-numeric [facility] - 12:29 PM) results) [facility] UA Bili Negative Normal (applies [place] (10/19/18 to non-numeric [facility] - 12:29 PM) results) [facility] UA Glucose Negative Normal (applies [place] (10/19/18 to non-numeric [facility] - 12:29 PM) results) [facility] UA pH 8.0 Normal (applies [place] to non-numeric [facility] - results) [facility] UA Normal Normal (applies [place] Urobilinogen (10/19/18 to non-numeric [facility] - 12:29 PM) results) [facility] UA Blood Negative Normal (applies [place] (10/19/18 to non-numeric [facility] - 12:29 PM) results) [facility] UA Ketones Negative Normal (applies [place] (10/19/18 to non-numeric [facility] - 12:29 PM) results) [facility] UA Leuk Est Negative Normal (applies [place] (10/19/18 to non-numeric [facility] - 12:29 PM) results) [facility] UA Nitrite Negative Normal (applies [place] (10/19/18 to non-numeric [facility] - 12:29 PM) results) [facility] UA Color Light Normal (applies [place] Yellow to non-numeric [facility] - (10/19/18 results) [facility] 12:29 PM) [facility] UA Appear Clear Normal (applies [place] (10/19/18 to non-numeric [facility] - 12:29 PM) results) [facility] UA Spec Grav 1.013 Normal (applies [place] to non-numeric [facility] - results) [facility] ID Date Data Source [id number] 09/23/2018 05:34:00 PM EDT [facility] [id number] [id number] Name Value Range Interpretation Description Data Source(s ) Supporting Code Document(s ) UA Blood Negative [place] *NA*( [facility] - 5:34 [facility] PM) [facility] UA Color Yellow Normal (applies [place] (09/23/18 to non-numeric [facility] - 5:34 PM) results) [facility] UA Leuk Est Negative Normal (applies [place] (09/23/18 to non-numeric [facility] - 5:34 PM) results) [facility] UA Bili Negative Normal (applies [place] (09/23/18 to non-numeric [facility] - 5:34 PM) results) [facility] UA Appear Clear Normal (applies [place] (09/23/18 to non-numeric [facility] - 5:34 PM) results) [facility] UA Spec Grav 1.021 Normal (applies [place] to non-numeric [facility] - results) [facility] UA Nitrite Negative Normal (applies [place] (09/23/18 to non-numeric [facility] - 5:34 PM) results) [facility] UA Glucose Negative Normal (applies [place] (09/23/18 to non-numeric [facility] - 5:34 PM) results) [facility] UA Normal Normal (applies [place] Urobilinogen (09/23/18 to non-numeric [facility] - 5:34 PM) results) [facility] UA Protein 30 mg/dL [facility] UA Ketones 10 mg/dL [facility] UA pH 7.5 Normal (applies [place] to non-numeric [facility] - results) [facility] ID Date Data Source [id number] 09/23/2018 05:34:00 PM EDT [facility] [id number] [id number] Name Value Range Interpretation Description Data Source(s ) Supporting Code Document(s ) UA RBC 0-4 /HPF Normal (applies [place] [facility] to non-numeric - [facility] results) [facility] UA Squam 1-4 /HPF [facility] Epithelial - [facility] UA WBC 0-4 /HPF Normal (applies [place] [facility] to non[facility] results) [facility] UA Bacteria Small [place] [facility] /HPF - [facility] ID Date Data Source [id number] 09/23/2018 05:33:00 PM EDT [facility] [id number] [facility] Name Value Range Interpretation Code Description Data Mirna rce(s) Supporting Document(s ) EGFR Non [facility] - AA [facility] EGFR AA [facility] ID Date Data Source [id number] 09/23/2018 05:33:00 PM EDT [facility] [id number] [facility] Name Value Range Interpretation Description Data Source(s ) Supporting Code Document(s ) Lipase Lvl 28 unit/L [facility] [facility] results) Hospital Center ID Date Data Source [id number] 09/23/2018 05:33:00 PM EDT [facility] [id number] [facility] Name Value Range Interpretation Description Data Source(s ) Supporting Code Document(s ) Chloride 103 Normal (applies [place] [facility] mmol/L to [facility] results) Hospital Center Calcium Lvl 10.3 Above high normal [facility] - [facility] AGPK 17.3 Normal (applies [place] [facility] [place] to [facility] results) [facility] Center Albumin Lvl 5.0 g/dL Normal (applies [place] [facility] [place] to [facility] results) [facility] AST 35 Normal (applies [place] [facility] unit/L to [facility] results) [facility] CO2 24 Normal (applies [place] [facility] mmol/L to [facility] results) [facility] Total Protein 8.7 g/dL Above high normal [place] [facility] ALT 20 Normal (applies [place] [facility] unit/L to [facility] results[facility] Alk Phos 75 Normal (applies [place] [facility] [place] unit/L to [facility] results) [facility] Bili Total 0.60 Normal (applies [place] [facility] mg/dL to [facility] results) [facility] Creatinine 0.63 Normal (applies [place] [facility] mg/dL to [facility] results) [facility] BUN 14 mg/dL Normal (applies [place] [facility] to [facility] results) [facility] Glucose Lvl 105 Normal (applies [place] [facility] [place] mg/dL to [facility] results) [facility] Sodium Lvl 140 Normal (applies [place] [facility] mmol/L to [facility] results) [facility] Potassium Lvl 4.3 Normal (applies [facility] erian mmol/L to [facility] results) Hospital Center ID Date Data Source [id number] 09/23/2018 05:32:00 PM EDT [facility] [id number] [facility] Name Value Range Interpretation Description Data Source(s ) Supporting Code Document(s ) Plts Morph Plt Normal (applies [place] [facility] Adequate to [facility] (09/23/18 results) Hospital Center 5:32 PM) Monocyte 2.0 % Normal (applies [place] [facility] [place] Man to [facility] results) [facility] Lymph Man 8.0 % Below low normal [facility] an [facility] Eos Man 0.0 % Normal (applies [place] [facility] [place] to [facility] results) [facility] Segs Man 90.0 % Above high normal [facility] RBC Morph Normal Normal (applies [place] [facility] [place] (09/23/18 to [facility] 5:32 PM) results) Hospital [facility] Basophil 0.0 % Normal (applies [place] [facility] [place] Man to [facility] results) Hospital Center ID Date Data Source [id number] 09/23/2018 05:32:00 PM EDT [facility] [id number] [facility] Name Value Range Interpretation Description Data Source(s ) Supporting Code Document(s ) Beta hCG Neg Normal (applies to [facility] Ql (09/23/18 [facility] 5:32 PM) results) Hospital Center ID Date Data Source [id number] 09/23/2018 05:32:00 PM EDT [facility] [id number] [facility] Name Value Range Interpretation Description Data Source(s ) Supporting Code Document(s ) MPV 9.6 fL Normal (applies to [facility] results) [facility] Hct 43.2 % Normal (applies to [facility] results) [facility] MCHC 32.8 g/dL Below low normal [email or web address] MCV 86.1 fL Normal (applies to [facility] results) [facility] RDW 15.5 % Above high normal [facility] Platelet 263 Normal (applies to [facility] x10(3)/[facility] L results) [facility] MCH 28.2 pg Normal (applies to [facility] results) [facility] WBC 11.4 Above high normal [facility] brent x10(3)/[facility] L [facility] Hgb 14.2 g/dL Normal (applies to [facility] results) [facility] RBC 5.02 Normal (applies to [facility] x10(6)/[facility] L results) Hospital Center ID Date Data Source [id number] 09/23/2018 05:32:00 PM EDT [facility] [id number] [facility] Name Value Range Interpretation Description Data Source(s ) Supporting Code Document(s ) Neutro 84.0 % Above high normal [place] [facility] [place] Percent - [facility] Eos Percent 0.0 % Normal (applies [place] [facility] to non-numeric - [facility] results) [facility] Baso 0.0 Normal (applies [place] [facility] Absolute x10(3)/mc to non-numeric - [facility] L results) [facility] Lymph 1.4 Normal (applies [place] [facility] Absolute x10(3)/mc to non-numeric - [facility] L results) Hospital [facility] Eos Absolute 0.0 Normal (applies [place] [facility] [place]ose miguel x10(3)/mc to non-numeric - [facility] L results) [facility] [place] 0.3 Normal (applies [place] [facility] Absolute x10(3)/mc to non-numeric - [facility] L results) [facility] Neutro 9.6 Above high normal [place] [facility] Absolute x10(3)/mc - [facility] Lymph 12.6 % Below low normal [place] [facility] Percent - [facility] Baso Percent 0.4 % Normal (applies [place] [facility] [place] miguel to non-numeric - [facility] results) [facility] [place] Percent 3.0 % Normal (applies [place] [facility] [place]ose miguel to non-[facility] - [facility] results) Hospital Center ID Date Data Source [id number] 07/30/2018 01:40:00 AM EDT [facility] [id number] [facility] Name Value Range Interpretation Description Data Source(s ) Supporting Code Document(s ) Strep Pos [place] [facility] Screen *ABN*(07/10 - [facility] 04/29 1:40 Hospital Center AM) ID Date Data Source [id number] 07/30/2018 01:25:00 AM EDT [facility] [id number] [facility] Name Value Range Interpretation Description Data Source(s ) Supporting Code Document(s ) U beta Neg Normal (applies to [place] [facility] [place] mig[place] hCG Ql (07/30/18 non-numeric - [facility] 1:25 AM) results) Hospital Center ID Date Data Source [id number] 06/06/2018 12:12:00 PM EDT [facility] - [facility] [id number] Hospital [facility] Name Value Range Interpretation Code Description Data Mirna rce(s) Supporting Document(s ) RADRPT <table [place] [facility] border="1" - [facility] width="95%"><col Hospital Cent er group><col width="25%"></co l><col width="25%"></co l><col width="25%"></co l><col width="25%"></co l></colgroup><tb janina><tr><td>Exam Date Time</td><td>Pro cedure</td><td>P erforming Provider</td><td >Status</td></tr ><tr><td>06/06/18 12:20 PM</td><td>XR Spine Lumbosacral 2 or 3 Views</td><td>RI ESTON ARRT, MORGAN; </td><td>Auth (Verified)</td>< /tr></tbody></ta ble><paragraph>N otes:</paragraph ><paragraph>(XR Spine Lumbosacral 2 or 3 Views) Reason For Exam: Trauma/Injury</p aragraph><paragr aph><content>Rep ort</content>
<content ID="[id number]">Examinati on: Lumbar spine radiographs

INDICATION: Back pain

TE CHNIQUE: AP and lateral views of the lumbosacral spine and
coned-do wn view of L5-S1.

COMPARISON: 08/02/2011
<b r/>FINDINGS:<br/ >Vertebral body heights and disc spaces are maintained. There is no
evidence of fracture or spondylolisthesi s. No significant degenerative<br/ >changes are noted.

The visualized bowel gas pattern is unremarkable.

IMPRESSIO N:

No evidence of fracture or spondylolisthesi s. </content>
< content> Final
Dictat ed By: BASHIR CARDONA MD 06.06.2018 12:55 pm

Rele ased By: (Electronic Signature)
S igned: BASHIR CARDONA MD 06.06.2018 12:55 pm

Bauman scribed: 06.06.2018 12:57 pm </content></para graph> ID Date Data Source [id number] 06/06/2018 11:28:00 AM EDT [facility] [id number] [facility] Value Range Interpretation Description Data Source(s ) Supporting Code Document(s ) U beta Neg Normal (applies to [facility] jose miguel hCG Ql ([facility] ID Date Data Source [id number] 06/05/2018 12:38:43 PM EDT [facility] [id number] [facility] Value Range Interpretation Description Data Source(s ) Supporting Code Document(s ) RADRPT <table border="1" [facility] brent width="95%"><colgr [facility] oup><col [facility] width="25%"></col> <col width="25%"></col> <col width="25%"></col> <col width="25%"></col> </colgroup><tbody> <tr><td>Exam Date Time</td><td>Proce dure</td><td>Perfo rming Provider</td><td>S tatus</td></tr><tr ><td>06/05/18 12:43 PM</td><td>XR Abdomen Flat And Upright</td><td>GA RAGATTI ARRT, BALTAZAR; </td><td>Auth (Verified)</td></t r></tbody></table> <paragraph>Notes:< /paragraph><paragr aph>(XR Abdomen Flat And Upright) Reason For Exam: unspecified abd pain</paragraph><p aragraph><content> Report</content><b r/><content ID="[id number]">

KUB

Clinical History: History of colitis. Abdominal pain

A KUB was performed. Radiograph reveals the soft tissue and osseous
struct ures to be unremarkable. No abnormal calcifications are seen. No
dilated loops of bowel is noted. There is no evidence of bowel
obstruct ion or free air.

Impr ession:
1. No evidence of bowel obstruction. </content>
<co ntent> Final
Dictated By: DENNIS HONEYCUTT MD 06.05.2018 12:57 pm

Releas ed By: (Electronic Signature)
Sig jose a: DENNIS HONEYCUTT MD 06.05.2018 12:57 pm

Transc ribed: 06.05.2018 12:59 pm </content></paragr aph> Procedure Social History Code Duration Value Status Description Data Source(s ) Smoking 05/01/2019 Ex-smoker completed Ex-smoker [facility] - 01:59:41 AM (finding) (finding) [facility] Center Smoking 05/01/2019 Ex-smoker completed Ex-smoker [facility] - 01:59:41 AM (finding) (finding) [facility] EST Center Tobacco smoking completed [place] [facility] - consumption [place] unknown (finding) [facility] Tobacco smoking UNK completed [place] [facility] - consumption [place] unknown (finding) [facility] Tobacco smoking completed [place] [facility] [place] - consumption [place] unknown (finding) [facility] Tobacco smoking UNK completed [place] [facility] - consumption [facility] unknown (finding) [facility] [place] smoking completed [place] [facility] [place] - consumption [facility] unknown (finding) [facility] Tobacco smoking UNK completed [place] [facility] - consumption [facility] unknown (finding) [facility]osp[facility] Smoking Smokes completed Smokes [facility] [place] [facility] (finding) [facility] (finding) Smoking Smokes completed Smokes tobacco [place] [facility] - tobacco daily (finding) [facility] (finding) Vital Signs ID Date Data Source UNK Name Value Range Interpretation Code Description Data Source(s) Body temperature 98.5 Normal (applies to 98.5 [degF] [place] [facility] - [degF] non-numeric [facility] results) [facility] Mean blood 75 mm[Hg] 75 mm[Hg] [facility] n - pressure [facility] Diastolic blood 64 mm[Hg] Normal (applies to 64 mm[Hg] [place] [facility] - pressure non-numeric [facility] results) [facility] Systolic blood 96 mm[Hg] Normal (applies to 96 mm[Hg] [place] [facility] - pressure non-numeric [facility] results) [facility] Respiratory rate 18 br/min Normal (applies to 18 br/min [facility] - non-numeric [facility] results) [facility] Peripheral Pulse 70 bpm Normal (applies to 70 bpm [facility] - Rate non-numeric [facility] results) [facility] Body height 169.000 cm 169.000 cm [facility] Body weight 62.000 kg 62.000 kg [facility] an - Measured [facility] Body surface 1.71 1.71 [facility] area [facility] Body weight 62 kg 62 kg [facility] an - Measured [facility] Body height 169 cm 169 cm [facility] Mean blood 81 mm[Hg] 81 mm[Hg] [facility] - pressure [facility] Diastolic blood 67 mm[Hg] Normal (applies to 67 mm[Hg] [place] [facility] - pressure non-numeric [facility] results) [facility] Systolic blood 108 mm[Hg] Normal (applies to 108 mm[Hg] [place] [facility] - pressure non-numeric [facility] results) [facility] Respiratory rate 18 br/min Normal (applies to 18 br/min [place] [facility] - non-numeric [facility] results) [facility] Peripheral Pulse 76 bpm Normal (applies to 76 bpm [place] [facility] - Rate non-numeric [facility] results) [facility] Body temperature 99.0 Normal (applies to 99.0 [degF] [place] [facility] - [degF] non-numeric [facility] results) [facility] Mean blood 71 mm[Hg] 71 mm[Hg] [facility] - pressure by [facility] Oxygen 99 % 94-100 % Normal (applies to 99 % [facility] - saturation in non-numeric [facility] Blood Postductal results) Center by Pulse oximetry Heart rate 70 bpm 60-100 bpm Normal (applies [facility] 70 b[facility] results) Center Diastolic blood 55 mm[Hg] 60-90 mmHg 55 mm[Hg] [facility] - pressure [facility] Systolic blood 103 mm[Hg] 90-130 Normal (applies to 103 mm[Hg] [facility] pressure mmHg non-numeric [facility] results) Center Oxygen 100 % 94-100 % Normal (applies to 100 % [facility] - saturation in non-numeric [facility] Blood Postductal results) Center by Pulse oximetry Diastolic blood 77 mm[Hg] 60-90 mmHg Normal (applies to 77 mm[Hg] [facility] - pressure non-numeric [facility] results) Center Systolic blood 116 mm[Hg] 90-130 Normal (applies to 116 mm[Hg] [facility] - pressure mmHg non-numeric [facility] results) Center Heart rate 76 bpm 60-100 bpm Normal (applies to 76 bpm [facility] - non-numeric [facility] results) Center Body mass index 18.75 18.75 kg/m2 [facility] - (BMI) [Ratio] kg/m2 [facility] Body weight 54.2 kg 54.2 kg [facility] h - Measured [facility] Body height 170 cm 170 cm [facility] h - [facility] Body mass index 18.75 18.75 kg/m2 [facility] - (BMI) [Ratio] kg/m2 [facility] Oxygen 97 % 94-100 % Normal (applies to 97 % [facility] - saturation in non-numeric [facility] Blood Postductal results) Center by Pulse oximetry [facility] - [Minimum Data [facility] Set] Center Diastolic blood 49 mm[Hg] 60-90 mmHg 49 mm[Hg] [facility] ealth - pressure [facility] Systolic blood 107 mm[Hg] 90-130 Normal (applies to 107 mm[Hg] [facility] Health - pressure mmHg non-numeric [facility] results) Center Respiratory rate 18 br/min 14-20 Normal (applies to 18 br/min [facility] - br/min non-numeric [facility] results) Center Heart rate 77 bpm 60-100 bpm Normal (applies to 77 bpm [facility] e Health - non-numeric [facility] results) Center Oral temperature 98.9 96.4-99.1 Normal (applies to 98.9 [degF] [facility] - [degF] DegF non-numeric [facility] results) Center Oral temperature 98.7 96.4-99.1 Normal (applies to 98.7 [degF] [facility] - [degF] DegF non-numeric [facility] results) Center Mean blood 87 mm[Hg] 87 mm[Hg] [facility] - pressure by [facility] Noninvasive Center Respiratory rate 17 br/min 14-20 Normal (applies to 17 br/min [facility] - br/min non-numeric [facility] results) Center Oxygen therapy [facility] - [Minimum Data [facility] Set] Center Oxygen 98 % 94-100 % Normal (applies to 98 % [facility] - saturation in non-numeric [facility] Blood Postductal results) Center by Pulse oximetry Diastolic blood 75 mm[Hg] 60-90 mmHg Normal (applies to 75 mm[Hg] [facility] - pressure non-numeric [facility] results) Center Systolic blood 111 mm[Hg] 90-130 Normal (applies to 111 mm[Hg] [facility] - pressure mmHg non-numeric [facility] results) Center Heart rate 79 bpm 60-100 bpm Normal (applies to 79 bpm [facility] - non-numeric [facility] results) Center Body mass index 19.97 19.97 kg/m2 [facility] - (BMI) [Ratio] kg/m2 [facility] Body weight 57.72 kg 57.72 kg [facility] h - Measured [facility] Body height 170 cm 170 cm [facility] h - [facility] Body mass index 19.97 19.97 kg/m2 [facility] - (BMI) [Ratio] kg/m2 [facility] Oxygen 96 % 94-100 % Normal (applies to 96 % [facility] - saturation in non-numeric [facility] Blood Postductal results) Center by Pulse oximetry Oxygen therapy [facility] alth - [Minimum Data [facility] Set] Center Diastolic blood 71 mm[Hg] 60-90 mmHg Normal (applies to 71 mm[Hg] [facility] Health - pressure non-numeric [facility] results) Center Systolic blood 109 mm[Hg] 90-130 Normal (applies to 109 mm[Hg] [facility] - pressure mmHg non-numeric [facility] results) Center Respiratory rate 18 br/min 14-20 Normal (applies to 18 br/min [facility] - br/min non-numeric [facility] results) Center Heart rate 80 bpm 60-100 bpm Normal (applies to 80 bpm [facility] - non-numeric [facility] results) Center Oral temperature 98.8 96.4-99.1 Normal (applies to 98.8 [degF] [facility] - [degF] DegF non-numeric [facility] results) Center Mean blood 76 mm[Hg] 76 mm[Hg] [place] [facility] - pressure [facility] Diastolic blood 61 mm[Hg] Normal (applies to 61 mm[Hg] [place] [facility] - pressure non-numeric [facility] results) [facility] Systolic blood 106 mm[Hg] Normal (applies to 106 mm[Hg] [place] [facility] - pressure non-numeric [facility] results) [facility] Respiratory rate 20 br/min Normal (applies to 20 br/min [place] [facility] - non-numeric [facility] results) [facility] Peripheral Pulse 81 bpm Normal (applies to 81 bpm [place] [facility] - Rate non-numeric [facility] results) [facility] Body temperature 97.8 97.8 [degF] [place] [facility] - - Temporal [degF] [facility] Body height 170.000 cm 170.000 cm [facility] - [facility] Body weight 54.000 kg 54.000 kg [facility] - Measured [facility] Body surface 1.6 1.6 [facility] - area [facility] Body weight 54 kg 54 kg [facility] an - Measured [facility] Body height 170 cm 170 cm [facility] Mean blood 69 mm[Hg] 69 mm[Hg] [place] [facility] - pressure [facility] Diastolic blood 51 mm[Hg] Below low normal 51 mm[Hg] [facility] - pressure [facility] Systolic blood 105 mm[Hg] Normal (applies to 105 mm[Hg] [place] [facility] - pressure non-numeric [facility] results) [facility] Respiratory rate 16 br/min Normal (applies to 16 br/min [place] [facility] - non-numeric [facility] results) [facility] Peripheral Pulse 77 bpm Normal (applies to 77 bpm [place] [facility] - Rate non-numeric [facility] results) [facility] Body temperature 97.8 Normal (applies to 97.8 [degF] [place] [facility] - [degF] non-numeric [facility] results) [facility] Peripheral Pulse 84 bpm Normal (applies to 84 bpm [place] [facility] - Rate non-numeric [facility] results) [facility] r Diastolic blood 68 mm[Hg] Normal (applies to 68 mm[Hg] [place] [facility] - pressure non-numeric [facility] results) [facility] Systolic blood 121 mm[Hg] Normal (applies to 121 mm[Hg] [place] [facility] - pressure non-numeric [facility] results) [facility] r Body height 170 cm 170 cm [facility] r Mean blood 82 mm[Hg] 82 mm[Hg] [place] [facility] - pressure [facility] r Diastolic blood 69 mm[Hg] Normal (applies to 69 mm[Hg] N [place] [facility] - pressure non-numeric [facility] results) [facility] r Systolic blood 107 mm[Hg] Normal (applies to 107 mm[Hg] [place] [facility] - pressure non-numeric [facility] results) [facility] r Respiratory rate 18 br/min Normal (applies to 18 br/min [place] [facility] - non-numeric [facility] results) [facility] r Peripheral Pulse 79 bpm Normal (applies to 79 bpm [place] [facility] - Rate non-numeric [facility] results) [facility] r Body temperature 98.3 98.3 [degF] [place] [facility] - - Temporal [degF] [facility] r Body height 170.000 cm 170.000 cm [facility] r Body weight 54.000 kg 54.000 kg [place] [facility] - Measured [facility] Body surface 1.6 1.6 [facility] - area [facility] Body weight 54 kg 54 kg [facility] - Measured [facility] Mean blood 80 mm[Hg] 80 mm[Hg] [place] [facility] - pressure [facility] r Diastolic blood 60 mm[Hg] Normal (applies to 60 mm[Hg] [place] [facility] - pressure non-numeric [facility] results) [facility] r Systolic blood 121 mm[Hg] Normal (applies to 121 mm[Hg] [facility] - pressure non-numeric [facility] results) [facility] r Respiratory rate 18 br/min Normal (applies to 18 br/min [place] [facility] - non-numeric [facility] results) [facility] [facility] r Peripheral Pulse 79 bpm Normal (applies to 79 bpm [facility] - Rate non-numeric [facility] results) [facility] r Body temperature 98 [degF] 98 [degF] [facility] - - Temporal [facility] r Body height 171.000 cm 171.000 cm [facility] Body weight 56.000 kg 56.000 kg [facility] - Measured [facility] Body surface 1.63 1.63 [facility] r Body weight 56 kg 56 kg [facility] an - Measured [facility] Body height 171 cm 171 cm [facility] - [facility] Mean blood 88 mm[Hg] 88 mm[Hg] [facility] - pressure [facility] Diastolic blood 63 mm[Hg] Normal (applies to 63 mm[Hg] [place] [facility] - pressure non-numeric [facility] results) [facility] Systolic [facility] 137 mm[Hg] Normal (applies to 137 mm[Hg] [facility] - pressure non-numeric [facility] results) [facility] Respiratory rate 18 br/min Normal (applies to 18 br/min [facility] - non-numeric [facility] results) [facility] Peripheral Pulse 91 bpm Normal (applies to 91 bpm [facility] - Rate non-numeric [facility] results) [facility] Body temperature 98.5 98.5 [degF] [facility] - - Temporal [degF] [facility] r Body surface 1.6 1.6 [facility] r Body weight 55 kg 55 kg [facility] - Measured [facility] r Body height 168 cm 168 cm [facility] r Mean blood 80 mm[Hg] 80 mm[Hg] [facility] - pressure [facility] Diastolic blood 59 mm[Hg] Below low normal 59 mm[Hg] [facility] - pressure [facility] r Systolic blood 123 mm[Hg] Normal (applies to 123 mm[Hg] [facility] - pressure non-numeric [facility] results) [facility] Respiratory rate 18 br/min Normal (applies to 18 br/min [facility] - non-numeric [facility] results) [facility] Peripheral Pulse 74 bpm Normal (applies to 74 bpm [place] [facility] [place] non-numeric [facility] results) [facility] r Body temperature 97.4 97.4 [degF] [place] [facility] - - Temporal [degF] [facility] r Body height 168.000 cm 168.000 cm [facility] - [facility] r Body weight 55.000 kg 55.000 kg [facility] - Measured [facility] r Mean blood 73 mm[Hg] 73 mm[Hg] [facility] - pressure [facility] r Diastolic blood 61 mm[Hg] Normal (applies to 61 mm[Hg] [place] [facility] pressure non-numeric [facility] results) [facility] r Systolic blood 96 mm[Hg] Normal (applies to 96 mm[Hg] [place] [facility] [place] pressure non-numeric [facility] results) [facility] r Peripheral Pulse 89 bpm Normal (applies to 89 bpm [facility] - Rate non-numeric [facility] results) [facility] r Body temperature 97.6 97.6 [degF] [facility] - - Temporal [degF] [facility] r Mean blood 73 mm[Hg] 73 mm[Hg] [facility] - pressure [facility] r Diastolic blood 59 mm[Hg] Below low normal 59 mm[Hg] [facility] - pressure [facility] r Systolic blood 100 mm[Hg] Normal (applies to 100 mm[Hg] [facility] - pressure non-numeric [facility] results) [facility] Peripheral Pulse 78 bpm Normal (applies to 78 bpm [place] [facility] [place] non[facility]numeric [facility] results) [facility] r Body temperature 97.3 97.3 [degF] [facility] - - Temporal [degF] [facility] r Body surface 1.68 1.68 [facility] - area [facility] r Body weight 60 kg 60 kg [facility] - Measured [facility] r Body height 169 cm 169 cm [facility] - [facility] Mean blood 70 mm[Hg] 70 mm[Hg] [facility] - pressure [facility] Diastolic blood 58 mm[Hg] Below low normal 58 mm[Hg] [facility] - pressure [facility] Systolic blood 93 mm[Hg] Normal (applies to 93 mm[Hg] [place] [facility] [place] pressure non-numeric [facility] results) [facility] Respiratory rate 20 br/min Normal (applies to 20 br/min [facility] - non-numeric [facility] results) [facility] Peripheral Pulse 74 bpm Normal (applies to 74 bpm [place] [facility] [place] non-numeric [facility] results) [facility] Body temperature 97.7 97.7 [degF] [place] [facility] [place] - Temporal [degF] [facility] Body height 169.000 cm 169.000 cm [facility] - [facility] Body weight 60.000 kg 60.000 kg [facility] - Measured [facility] Body height 167 cm 167 cm [facility] Mean blood 93 mm[Hg] 93 mm[Hg] [place] [facility] [place] - pressure [facility] Diastolic blood 76 mm[Hg] Normal (applies to 76 mm[Hg] [place] [facility] - pressure non-numeric [facility] results) [facility] Systolic blood 127 mm[Hg] Normal (applies to 127 mm[Hg] [place] [facility] [place] pressure non-numeric [facility] results) [facility] Respiratory rate 18 br/min Normal (applies to 18 br/min [facility] - non-numeric [facility] results) [facility] Peripheral Pulse 96 bpm Normal (applies to 96 bpm [place] [facility] [place] non-numeric [facility] results) [facility] Body temperature 98.1 98.1 [degF] [facility] - - Temporal [degF] [facility] Body height 167.000 cm 167.000 cm [facility] - [facility] Body weight 55.000 kg 55.000 kg [facility] - Measured [facility] Body surface 1.6 1.6 [facility] - area [facility] Body weight 55 kg 55 kg [facility] - Measured [facility] Body height 158.000 cm 158.000 cm [facility] Body weight 49.000 kg 49.000 kg [facility] - Measured [facility] Body surface 1.47 1.47 [facility] - area [facility] r Body weight 49 kg 49 kg [facility] - Measured [facility] Body height 158 cm 158 cm [facility] Mean blood 87 mm[Hg] 87 mm[Hg] [facility] - pressure [facility] Diastolic blood 71 mm[Hg] Normal (applies to 71 mm[Hg] [place] [facility] - pressure non-numeric [facility] results) [facility] Systolic blood 119 mm[Hg] Normal (applies to 119 mm[Hg] [place] [facility] [place] pressure non-numeric [facility] results) [facility] Respiratory rate 20 br/min Normal (applies to 20 br/min [place] [facility] - non-numeric [facility] results) [facility] r Peripheral Pulse 78 bpm Normal (applies to 78 bpm [place] [facility] - Rate non-numeric [facility] results) [facility] Body temperature 98.2 98.2 [degF] [place] [facility] - - Temporal [degF] [facility] r Mean blood 98 mm[Hg] 98 mm[Hg] [facility] - pressure [facility] r Diastolic blood 84 mm[Hg] Normal (applies to 84 mm[Hg] [place] [facility] - pressure non-numeric [facility] results) [facility] Systolic blood 125 mm[Hg] Normal (applies to 125 mm[Hg] [place] [facility] [place] pressure non-numeric [facility] results) [facility] Respiratory rate 16 br/min Normal (applies to 16 br/min [facility] - non-numeric [facility] results) [facility] Peripheral Pulse 86 bpm Normal (applies to 86 bpm [place] [facility] - Rate non-numeric [facility] results) [facility] Body temperature 98.7 Normal (applies to 98.7 [degF] [place] [facility] - [degF] non-numeric [facility] results) [facility] Body height 170.000 cm 170.000 cm [facility] Body weight 62.000 kg 62.000 kg [facility] Me[facility] Body surface 1.71 1.71 [facility] brent - area [facility] r Body weight 62 kg 62 kg [facility] - Measured [facility] Body height 170 cm 170 cm [facility] - [facility] Mean blood 85 mm[Hg] 85 mm[Hg] [facility] - pressure [facility] Diastolic blood 68 mm[Hg] Normal (applies to 68 mm[Hg] [place] [facility] pressure non-numeric [facility] results) [facility] Systolic blood 118 mm[Hg] Normal (applies to 118 mm[Hg] [facility] - pressure non-numeric [facility] results) [facility] Respiratory rate 20 br/min Normal (applies to 20 br/min [facility] - non-numeric [facility] results) [facility] Peripheral Pulse 115 bpm Above high normal 115 bpm [place] [facility] - Rate [facility] Body temperature 98.0 Normal (applies to 98.0 [degF] [facility] - [degF] non-numeric [facility] results) [facility] Body temperature 98.9 98.9 [degF] [facility] - - Temporal [degF] [facility] r Respiratory rate 18 br/min Normal (applies to 18 br/min [facility] - non-numeric [facility] results) [facility] Diastolic blood 69 mm[Hg] Normal (applies to 69 mm[Hg] [place] [facility] - pressure non-numeric [facility] results) [facility] Systolic blood 121 mm[Hg] Normal (applies to 121 mm[Hg] [facility] - pressure non-numeric [facility] results) [facility] Respiratory rate 20 br/min Normal (applies to 20 br/min [facility] - non-numeric [facility] results) [facility] Mean blood 92 mm[Hg] 92 mm[Hg] [facility] - pressure [facility] Diastolic blood 74 mm[Hg] Normal (applies to 74 mm[Hg] [place] [facility] - pressure non-numeric [facility] results) [facility] Systolic blood 127 mm[Hg] Normal (applies to 127 mm[Hg] [place] [facility] [place] pressure non-numeric [facility] results) [facility] Respiratory rate 16 br/min Normal (applies to 16 br/min [facility] - non-numeric [facility] results) [facility] Peripheral Pulse 72 bpm Normal (applies to 72 bpm [facility] - Rate non[facility]numeric [facility] results) [facility] Body temperature 99.1 99.1 [degF] [facility] - - Temporal [degF] [facility] Body weight 65.000 kg 65.000 kg [facility] - Measured [facility] Body height 170.000 cm 170.000 cm [facility] an - [facility] Body temperature 98 [degF] 98 [degF] [facility] - - Temporal [facility] Peripheral Pulse 89 bpm Normal (applies to 89 bpm [facility] - Rate non-numeric [facility] results) [facility] Diastolic blood 68 mm[Hg] Normal (applies to 68 mm[Hg] [place] [facility] - pressure non-numeric [facility] results) [facility] Systolic blood 123 mm[Hg] Normal (applies to 123 mm[Hg] [facility] - pressure non-numeric [facility] results) [facility] Body surface 1.75 1.75 [facility] - area [facility] Body weight 65 kg 65 kg [facility] - Measured [facility] Body height 170 cm 170 cm [facility] - [facility] Mean blood 86 mm[Hg] 86 mm[Hg] [facility] - pressure [facility] Oxygen therapy [facility] - [Minimum Data [facility] Set] Center Oxygen 99 % 94-100 % Normal (applies to 99 % [facility] - saturation in non-numeric [facility] Blood Postductal results) Center by Pulse oximetry Body mass index 21.8 kg/m2 21.8 kg/m2 [facility] ealth - (BMI) [Ratio] [facility] Body mass index 21.8 kg/m2 21.8 kg/m2 [facility] ([facility]) [Ratio] [facility] Body height 170 cm 170 cm [facility] - [facility] Body weight 63 kg 63 kg [facility] h - Measured [facility] Oral temperature 98.1 96.4-99.1 Normal (applies to 98.1 [degF] [facility] - [degF] DegF non-numeric [facility] results) Center Heart rate 90 bpm 60-100 bpm Normal (applies to 90 bpm [facility] e Health - non-numeric [facility] results) Center Respiratory rate 16 br/min 14-20 Normal (applies to 16 br/min [facility] - br/min non-numeric [facility] results) Center Diastolic blood 80 mm[Hg] 60-90 mmHg Normal (applies to 80 mm[Hg] [facility] pressure non-numeric [facility] results) Center Systolic blood 143 mm[Hg] 90-130 Above high normal 143 mm[Hg] [facility] - pressure mmHg [facility] Body temperature 99.6 Normal (applies to 99.6 [degF] [place] [facility] - [degF] non-numeric [facility] results) [facility] Diastolic blood 60 mm[Hg] Normal (applies to 60 mm[Hg] [place] [facility] - pressure non-numeric [facility] results) [facility] Systolic blood 115 mm[Hg] Normal (applies to 115 mm[Hg] [place] [facility] - pressure non-numeric [facility] results) [facility] Respiratory rate 20 br/min Normal (applies to 20 br/min [facility] - non-numeric [facility] results) [facility] Peripheral Pulse 99 bpm Normal (applies to 99 bpm [place] [facility] - Rate non-numeric [facility] results) [facility] Mean blood 78 mm[Hg] 78 mm[Hg] [place] [facility] - pressure [facility] Body weight 65.000 kg 65.000 kg [place] [facility] - Measured [facility] r Body height 170.000 cm 170.000 cm [facility] an - [facility] r Body weight 65 kg 65 kg [facility] an - Measured [facility] r Body surface 1.75 1.75 [facility] brent - area [facility] r Body height 170 cm 170 cm [facility] an - [facility] r Mean blood 96 mm[Hg] 96 mm[Hg] [facility] - pressure [facility] r Peripheral Pulse 125 bpm Above high normal 125 bpm [place] [facility] - Rate [facility] r Respiratory rate 20 br/min Normal (applies to 20 br/min [facility] - non-numeric [facility] results) [facility] r Diastolic blood 76 mm[Hg] Normal (applies to 76 mm[Hg] [place] [facility] - pressure non-numeric [facility] results) [facility] r Systolic blood 137 mm[Hg] Normal (applies to 137 mm[Hg] [place] [facility] - pressure non-numeric [facility] results) [facility] r Body temperature 103.2 103.2 [degF] [facility] - [degF] [facility] r Respiratory rate 16 br/min Normal (applies to 16 br/min [facility] - non-numeric [facility] results) [facility] r Body temperature 99.1 99.1 [degF] [facility] - - Temporal [degF] [facility] r Peripheral Pulse 97 bpm Normal (applies to 97 bpm [facility] - Rate non-numeric [facility] results) [facility] Diastolic blood 76 mm[Hg] Normal (applies to 76 mm[Hg] [place] [facility] - pressure non-numeric [facility] results) [facility] Systolic blood 127 mm[Hg] Normal (applies to 127 mm[Hg] [place] [facility] - pressure non-numeric [facility] results) [facility] Mean blood 93 mm[Hg] 93 mm[Hg] [facility] - pressure [facility] Diastolic blood 76 mm[Hg] Normal (applies to 76 mm[Hg] [place] [facility] - pressure non-numeric [facility] results) [facility] Systolic blood 111 mm[Hg] Normal (applies to 111 mm[Hg] [facility] - pressure non-numeric [facility] results) [facility] Mean blood 88 mm[Hg] 88 mm[Hg] [facility] - pressure [facility] r Respiratory rate 20 br/min Normal (applies to 20 br/min [facility] - non-numeric [facility] results) [facility] r Peripheral Pulse 121 bpm Above high normal 121 bpm [place] [facility] - Rate [facility] Body temperature 97.4 Normal (applies to 97.4 [degF] [facility] - [degF] non-numeric [facility] results) [facility] Diastolic blood 72 mm[Hg] Normal (applies to 72 mm[Hg] [facility] - pressure non-numeric [facility] results) [facility] Systolic blood 130 mm[Hg] Normal (applies to 130 mm[Hg] [facility] - pressure non-numeric [facility] results) [facility] r Body height 170 cm 170 cm [facility] - [facility] Mean blood 91 mm[Hg] 91 mm[Hg] [facility] - pressure [facility] Body weight 65 kg 65 kg [facility] - Measured [facility] Body surface 1.75 1.75 [facility] Body weight 65.000 kg 65.000 kg [facility] - Measured [facility] Body height 170.000 cm 170.000 cm [facility] an - [facility] Body height 170.000 cm 170.000 cm [facility] an - [facility] Body weight 59.000 kg 59.000 kg [facility] - Measured [facility] Respiratory rate 18 br/min Normal (applies to 18 br/min [facility] - non-numeric [facility] results) [facility] Diastolic blood 91 mm[Hg] Above high normal 91 mm[Hg] [facility] - pressure [facility] Systolic blood 141 mm[Hg] Above high normal 141 mm[Hg] [facility] - pressure [facility] r Body temperature 97.3 97.3 [degF] [place] [facility] - - Temporal [degF] [facility] r Body height 170 cm 170 cm [facility] Peripheral Pulse 94 bpm Normal (applies to 94 bpm [facility] - Rate [facility]-numeric [facility] Mean blood 108 mm[Hg] 108 mm[Hg] [facility] - pressure [facility] Body surface 1.67 1.67 [facility] [place] area [facility] r Body weight 59 kg 59 kg [facility] - Measured [facility] Patient Treatment Plan of Care Planned Activity Planned Date Details Description Data Source (s) No data available for [facility] - this section [facility] No data available for [facility] - this section [facility] No data available for [facility] Health - this section [facility] No data available for [facility] - this section [facility] Acetaminophen 300 MG / 10/05/2019 [facility] - Codeine Phosphate 30 MG 10:51:00 PM EDT [facility] Oral Tablet Center amoxicillin 875 mg oral 10/05/2019 [facility] - tablet 10:45:00 PM EDT [facility] Adderall 05/01/2019 [facility] - 01:48:00 AM EST [facility] Ambien 05/01/2019 [facility] - 01:47:00 AM EST [facility] albuterol CFC free 90 03/26/2019 [facility] - mcg/inh inhalation 09:09:00 PM EST [facility] aerosol Center Naproxen 500 MG Oral 01/19/2019 [facility] - Tablet 11:25:07 AM [facility] Ondansetron 4 MG 01/19/2019 [facility] - Disintegrating Oral 11:24:38 AM [facility] Tablet Center Sucralfate 1000 MG Oral 01/19/2019 [facility] - Tablet 11:24:28 AM EST [facility] Diazepam 2 MG Oral Tablet 12/15/2018 [place] [facility] - 09:52:22 PM EDT [facility] Adderall 10/19/2018 [facility] - 12:16:03 PM EDT [facility] Zolpidem tartrate 10 MG 10/19/2018 [place] [facility] - Oral Tablet 12:15:51 PM EDT [facility] Escitalopram 10 MG Oral 10/19/2018 [place] [facility] - Tablet 12:15:30 PM EDT [facility] Promethazine 09/23/2018 [facility] - Hydrochloride 25 MG Oral 10:38:48 PM EDT [facility] Ibuprofen 600 MG Oral 07/31/2018 [facility] - Tablet 12:58:14 AM EDT [facility] Clindamycin 300 MG Oral 07/31/2018 [place] [facility] - Capsule 12:57:53 AM EDT [facility] Percocet 5/325 oral 07/30/2018 [place] [facility] - tablet 02:46:49 AM EDT [facility] tramadol hydrochloride 50 06/06/2018 [facility] - MG Oral Tablet 01:00:04 PM EDT [facility] Cephalexin 500 MG Oral 05/02/2018 [facility] - Capsule 07:32:06 PM EST [facility] Dicyclomine Hydrochloride 03/30/2018 [facility] - 10 MG Oral Capsule 03:14:32 PM EST [facility] Ibuprofen 200 MG Oral 10/07/2017 [facility] - Tablet 02:24:00 PM EDT [facility] Clonazepam 2 MG Oral 10/07/2017 [facility] - Tablet 02:24:00 PM EDT [facility] Klonopin 10/11/2015 [facility] - 05:34:08 PM EDT [facility] Escitalopram 20 MG Oral 06/30/2015 [place] [facility] - Tablet 05:22:36 PM EDT [facility] Abilify 06/30/2015 [facility] - 05:22:29 PM EDT [facility]
[2019-12-15] MEDS: diazePAM 5 MG TABLET PO PRN ×2 (12:59→18:02)
[2019-12-15] MEDS: METHOCARBAMOL 500 MG TABLET PO PRN (12:59)
[2019-12-15] MEDS ORDERED: hydrOXYzine PAMOATE 25 MG CAPSULE (FP) PO SCH (14:00)
[2019-12-15 14:47] LABS: HEMATOCRIT 38.6 % (32.4-45.2); MCHC 33.6 g/dl (32.0-36.0); MEAN CELL VOLUME 86.2 fl (80-96); MEAN PLT VOLUME 9.5 fl (7.5-11.1); PLATELET COUNT 296 K/MM3 (134-434); RBC 4.47 M/mm3 (3.60-5.2); WHITE BLOOD COUNT 8.2 K/mm3 (4.0-10.0)
[2019-12-15 15:35] LABS: BILIRUBIN,TOTAL 0.4 mg/dL (0.2-1); BLOOD UREA NITROGEN 18.4 mg/dL (7-18); CALCIUM 9.3 mg/dL (8.5-10.1); CREATININE 0.8 mg/dL (0.55-1.3); POTASSIUM 4.4 mmol/L (3.5-5.1); TOT PROT 8.3 g/dl (6.4-8.2)
[2019-12-15] MEDS: ONDANSETRON *ODT* 4 MG TABLET SL PRN (19:43)
[2019-12-15] MEDS: NICOTINE POLACRILEX 2 MG GUM BUC PRN (20:23)
[2019-12-15] MEDS: MELATONIN 5 MG TABLETS PO SCH (22:41)
[2019-12-15] MEDS: THIAMINE HCL 100 MG TABLET (FP) PO SCH (22:41)
[2019-12-16] MEDS: METHOCARBAMOL 500 MG TABLET PO PRN (06:06)
[2019-12-16] MEDS: diazePAM 5 MG TABLET PO PRN ×4 (06:06→22:05)
[2019-12-16] MEDS ORDERED: METHADONE HCL 10 MG TABLET (FOR DETOX USE ONLY) ONE (08:36)
[2019-12-16] MEDS ORDERED: METHADONE HCL 5 MG TABLET (FOR DETOX USE ONLY) ONE (08:36)
[2019-12-16] MEDS: PRENATAL VITAMINS W/ FOLIC ACID TABLET (FP) PO SCH (09:30)
[2019-12-16] MEDS: NICOTINE POLACRILEX 2 MG GUM BUC PRN ×3 (09:31→21:45)
[2019-12-16] MEDS: NICOTINE 7 MG/24 HOURS TOPICAL PATCH TD SCH (09:31)
[2019-12-16] MEDS: ACETAMINOPHEN 325 MG TABLET (FP) PO PRN ×2 (09:47→20:46)
[2019-12-16] MEDS ORDERED: METHADONE (DETOX) 20 MG, METHADONE (DETOX) 5 MG PO ONE (10:00)
--- NOTE | 2019-12-16 11:02 | PN ---
S COWS - Scale Resting Pulse: 0= [place] 80 or Below Sweatin= No chills or Flushing Restless Observation: 0= Sits Still Pupil Size: 1= Pupils >than Normal Bone or Joint Aches: 2= Severe Diffuse Aches Runny Nose/ Eye Tearin= Runny Nose/Eyes GI Upset > 30mins: 2= Nausea/Diarrhea Tremor Observation of Outstretched Hands: 2= Slight Tremor Visible Yawning Observation: 1= 1-2x During Session Anxiety or Irritability: 2=Irritable/Anxious Goose Flesh Skin: 0=Smooth Skin COWS Score: 12 S Progress Note (SOAP) Subjective: alert,irritable,anxious,interrupted sleep,tremor,pain in the body and back,nausea Objective: 12/16/19 17:29 Vital Signs Temperature 97.6 F 12/16/19 13:46 Pulse Rate 72 12/16/19 13:46 Respiratory Rate 18 12/16/19 13:46 Blood Pressure 101/67 12/16/19 13:46 O2 Sat by Pulse Oximetry (%) 100 12/16/19 13:46 Laboratory Last Values WBC 8.2 K/mm3 (4.0-10.0) 12/15/19 12:20 RBC 4.47 M/mm3 (3.60-5.2) 12/15/19 12:20 Hgb 13.0 GM/dL (10.7-15.3) 12/15/19 12:20 Hct 38.6 % (32.4-45.2) 12/15/19 12:20 MCV 86.2 fl (80-96) 12/15/19 12:20 MCH 29.0 pg (25.7-33.7) 12/15/19 12:20 MCHC 33.6 g/dl (32.0-36.0) 12/15/19 12:20 RDW 14.0 % (11.6-15.6) 12/15/19 12:20 Plt Count 296 K/MM3 (134-434) D 12/15/19 12:20 MPV 9.5 fl (7.5-11.1) 12/15/19 12:20 Sodium 136 mmol/L (136-145) 12/15/19 12:20 Potassium 4.4 mmol/L (3.5-5.1) 12/15/19 12:20 Chloride 100 mmol/L (98-107) 12/15/19 12:20 Carbon Dioxide 30 mmol/L (21-32) 12/15/19 12:20 Anion Gap 6 MMOL/L (8-16) L 12/15/19 12:20 BUN 18.4 mg/dL (7-18) H 12/15/19 12:20 Creatinine 0.8 mg/dL (0.55-1.3) 12/15/19 12:20 Est GFR (CKD-EPI)AfAm 108.39 12/15/19 12:20 Est GFR (CKD-EPI)NonAf 93.52 12/15/19 12:20 Random Glucose 90 mg/dL (74-106) 12/15/19 12:20 Calcium 9.3 mg/dL (8.5-10.1) 12/15/19 12:20 Total Bilirubin 0.4 mg/dL (0.2-1) 12/15/19 12:20 AST 19 U/L (15-37) 12/15/19 12:20 ALT 15 U/L (13-61) 12/15/19 12:20 Alkaline Phosphatase 70 U/L (45-117) 12/15/19 12:20 Total Protein 8.3 g/dl (6.4-8.2) H 12/15/19 12:20 Albumin 4.0 g/dl (3.4-5.0) 12/15/19 12:20 POC Urine HCG, Qual Negative 12/15/19 11:47 Syphilis Serology Non-reactive (NONREACTIVE) 12/15/19 12:20 COVID-19 (STEVE) Not detected (Not Detected) 12/15/19 12:40 Assessment: 12/16/19 17:29 withdrawal symptom Plan: continue detox methadone regimen,valium 10 mgs po q 4 hrs prn for severe withdrawal for 72 hrs,close monitoring
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
[2019-12-16] MEDS: ONDANSETRON *ODT* 4 MG TABLET SL PRN (20:47)
[2019-12-16] MEDS: THIAMINE HCL 100 MG TABLET (FP) PO SCH (22:04)
[2019-12-16] MEDS: traZODone HCL 50 MG TABLET (FP) PO SCH (22:05)
[2019-12-16] MEDS: MELATONIN 5 MG TABLETS PO SCH (22:05)
[2019-12-17] MEDS: diazePAM 5 MG TABLET PO PRN ×4 (05:27→22:09)
[2019-12-17] MEDS ORDERED: METHADONE HCL 10 MG TABLET (FOR DETOX USE ONLY) PO ONE (10:00)
[2019-12-17] MEDS: PRENATAL VITAMINS W/ FOLIC ACID TABLET (FP) PO SCH (10:03)
[2019-12-17] MEDS: NICOTINE 7 MG/24 HOURS TOPICAL PATCH TD SCH (10:03)
[2019-12-17] MEDS: NICOTINE POLACRILEX 2 MG GUM BUC PRN ×3 (10:04→19:29)
[2019-12-17] MEDS: METHOCARBAMOL 500 MG TABLET PO PRN ×2 (10:05→22:11)
--- NOTE | 2019-12-17 14:00 | PN ---
BHS COWS - Scale Resting Pulse: 0= [place] 80 or Below Sweatin= No chills or Flushing Restless Observation: 0= Sits Still Pupil Size: 1= Pupils >than Normal Bone or Joint Aches: 2= Severe Diffuse Aches Runny Nose/ Eye Tearin= Nasal Congestion GI Upset > 30mins: 2= Nausea/Diarrhea Tremor Observation of Outstretched Hands: 2= Slight Tremor Visible Yawning Observation: 0= None Anxiety or Irritability: 2=Irritable/Anxious Goose Flesh Skin: 0=Smooth Skin COWS Score: 10 BHS Progress Note (SOAP) Subjective: alert,irritable,anxious,interrupted sleep,tremor,pain in the body and back,ambulation on the unit Objective: 12/17/19 18:00 Laboratory Last Values WBC 8.2 K/mm3 (4.0-10.0) 12/15/19 12:20 RBC 4.47 M/mm3 (3.60-5.2) 12/15/19 12:20 Hgb 13.0 GM/dL (10.7-15.3) 12/15/19 12:20 Hct 38.6 % (32.4-45.2) 12/15/19 12:20 MCV 86.2 fl (80-96) 12/15/19 12:20 MCH 29.0 pg (25.7-33.7) 12/15/19 12:20 MCHC 33.6 g/dl (32.0-36.0) 12/15/19 12:20 RDW 14.0 % (11.6-15.6) 12/15/19 12:20 Plt Count 296 K/MM3 (134-434) D 12/15/19 12:20 MPV 9.5 fl (7.5-11.1) 12/15/19 12:20 Sodium 136 mmol/L (136-145) 12/15/19 12:20 Potassium 4.4 mmol/L (3.5-5.1) 12/15/19 12:20 Chloride 100 mmol/L (98-107) 12/15/19 12:20 Carbon Dioxide 30 mmol/L (21-32) 12/15/19 12:20 Anion Gap 6 MMOL/L (8-16) L 12/15/19 12:20 BUN 18.4 mg/dL (7-18) H 12/15/19 12:20 Creatinine 0.8 mg/dL (0.55-1.3) 12/15/19 12:20 Est GFR (CKD-EPI)AfAm 108.39 12/15/19 12:20 Est GFR (CKD-EPI)NonAf 93.52 12/15/19 12:20 Random Glucose 90 mg/dL (74-106) 12/15/19 12:20 Calcium 9.3 mg/dL (8.5-10.1) 12/15/19 12:20 Total Bilirubin 0.4 mg/dL (0.2-1) 12/15/19 12:20 AST 19 U/L (15-37) 12/15/19 12:20 ALT 15 U/L (13-61) 12/15/19 12:20 Alkaline Phosphatase 70 U/L (45-117) 12/15/19 12:20 Total Protein 8.3 g/dl (6.4-8.2) H 12/15/19 12:20 Albumin 4.0 g/dl (3.4-5.0) 12/15/19 12:20 POC Urine HCG, Qual Negative 12/15/19 11:47 Syphilis Serology Non-reactive (NONREACTIVE) 12/15/19 12:20 COVID-19 (STEVE) Not detected (Not Detected) 12/15/19 12:40 Assessment: 12/17/19 18:00 withdrawal symptom continue detox methadone regimen,fluid,hydration Plan: continue methadone regimen,fluid
[2019-12-17] MEDS: traZODone HCL 50 MG TABLET (FP) PO SCH (22:07)
[2019-12-17] MEDS: THIAMINE HCL 100 MG TABLET (FP) PO SCH (22:07)
[2019-12-17] MEDS: MELATONIN 5 MG TABLETS PO SCH (22:08)
[2019-12-18] MEDS: diazePAM 5 MG TABLET PO PRN ×4 (07:12→20:56)
[2019-12-18] MEDS ORDERED: METHADONE HCL 10 MG TABLET (FOR DETOX USE ONLY) ONE (09:21)
[2019-12-18] MEDS ORDERED: METHADONE HCL 5 MG TABLET (FOR DETOX USE ONLY) ONE (09:21)
[2019-12-18] MEDS ORDERED: METHADONE (DETOX) 10 MG, METHADONE (DETOX) 5 MG PO ONE (10:00)
[2019-12-18] MEDS: PRENATAL VITAMINS W/ FOLIC ACID TABLET (FP) PO SCH (10:23)
[2019-12-18] MEDS: METHOCARBAMOL 500 MG TABLET PO PRN ×2 (10:24→16:46)
[2019-12-18] MEDS: NICOTINE 7 MG/24 HOURS TOPICAL PATCH TD SCH (10:25)
--- NOTE | 2019-12-18 11:05 | PN ---
BHS COWS - Scale Resting Pulse: 0= [place] 80 or Below Sweatin= No chills or Flushing Restless Observation: 0= Sits Still Pupil Size: 1= Pupils >than Normal Bone or Joint Aches: 2= Severe Diffuse Aches Runny Nose/ Eye Tearin= Nasal Congestion GI Upset > 30mins: 0= None Tremor Observation of Outstretched Hands: 0= None Yawning Observation: 0= None Anxiety or Irritability: 2=Irritable/Anxious Goose Flesh Skin: 0=Smooth Skin COWS Score: 6 BHS Progress Note (SOAP) Subjective: Pt seen at bedside this morning. Pt reporting improvement of most of her withdrawal symptoms; still c/o bone/joint aches and anxiety. Pt reports interrupted sleep. Pt reports desire to go to rehab after detox. Objective: Last Vital Signs Temp Pulse Resp BP Pulse Ox 97.1 F L 80 16 122/65 100 12/18/19 08:44 12/18/19 08:44 12/18/19 08:44 12/18/19 08:44 12/18/19 06:53 Gen - NAD, well dev/well nourished, AOx3 CV - RRR, normal s1, s2 Pulm - CTAB, good air entry Mental Status - anxious MSK/ext - gait steady, normal inspection, bone/joint/muscle aches in back and extremities Skin - dry, normal color CBC,CMP WBC 8.2 K/mm3 (4.0-10.0) 12/15/19 12:20 RBC 4.47 M/mm3 (3.60-5.2) 12/15/19 12:20 Hgb 13.0 GM/dL (10.7-15.3) 12/15/19 12:20 Hct 38.6 % (32.4-45.2) 12/15/19 12:20 MCV 86.2 fl (80-96) 12/15/19 12:20 MCH 29.0 pg (25.7-33.7) 12/15/19 12:20 MCHC 33.6 g/dl (32.0-36.0) 12/15/19 12:20 RDW 14.0 % (11.6-15.6) 12/15/19 12:20 Plt Count 296 K/MM3 (134-434) D 12/15/19 12:20 MPV 9.5 fl (7.5-11.1) 12/15/19 12:20 Sodium 136 mmol/L (136-145) 12/15/19 12:20 Potassium 4.4 mmol/L (3.5-5.1) 12/15/19 12:20 Chloride 100 mmol/L (98-107) 12/15/19 12:20 Carbon Dioxide 30 mmol/L (21-32) 12/15/19 12:20 Anion Gap 6 MMOL/L (8-16) L 12/15/19 12:20 BUN 18.4 mg/dL (7-18) H 12/15/19 12:20 Creatinine 0.8 mg/dL (0.55-1.3) 12/15/19 12:20 Est GFR (CKD-EPI)AfAm 108.39 12/15/19 12:20 Est GFR (CKD-EPI)NonAf 93.52 12/15/19 12:20 Random Glucose 90 mg/dL (74-106) 12/15/19 12:20 Calcium 9.3 mg/dL (8.5-10.1) 12/15/19 12:20 Total Bilirubin 0.4 mg/dL (0.2-1) 12/15/19 12:20 AST 19 U/L (15-37) 12/15/19 12:20 ALT 15 U/L (13-61) 12/15/19 12:20 Alkaline Phosphatase 70 U/L (45-117) 12/15/19 12:20 Total Protein 8.3 g/dl (6.4-8.2) H 12/15/19 12:20 Albumin 4.0 g/dl (3.4-5.0) 12/15/19 12:20 12/18/19 11:06 Assessment: Improving opioid withdrawal symptoms. Pt reports continued anxiety and interrupted sleep. 12/18/19 11:09 Plan: - continue detox methadone regimen, PO hydration - trazadone 50 mg po hs, as per psychiatry
[2019-12-18] MEDS: ONDANSETRON *ODT* 4 MG TABLET SL PRN (12:20)
[2019-12-18] MEDS: NICOTINE POLACRILEX 2 MG GUM BUC PRN ×4 (13:29→22:01)
[2019-12-18] MEDS ORDERED: MASKS NR ONE (20:55)
[2019-12-18] MEDS: THIAMINE HCL 100 MG TABLET (FP) PO SCH (22:00)
[2019-12-18] MEDS: traZODone HCL 50 MG TABLET (FP) PO SCH (22:00)
[2019-12-18] MEDS: MELATONIN 5 MG TABLETS PO SCH (22:00)
[2019-12-19] MEDS: diazePAM 5 MG TABLET PO PRN ×2 (04:35→09:31)
[2019-12-19] MEDS: PRENATAL VITAMINS W/ FOLIC ACID TABLET (FP) PO SCH (09:31)
[2019-12-19] MEDS: NICOTINE 7 MG/24 HOURS TOPICAL PATCH TD SCH (09:32)
[2019-12-19] MEDS: METHOCARBAMOL 500 MG TABLET PO PRN ×3 (09:34→22:58)
[2019-12-19] MEDS ORDERED: METHADONE HCL 10 MG TABLET (FOR DETOX USE ONLY) PO ONE (10:00)
[2019-12-19] MEDS: ONDANSETRON *ODT* 4 MG TABLET SL PRN (11:55)
[2019-12-19] MEDS: NICOTINE POLACRILEX 2 MG GUM BUC PRN ×2 (13:28→19:22)
--- NOTE | 2019-12-19 15:26 | PN ---
BHS COWS - Scale Resting Pulse: 0= [place] 80 or Below Sweatin= No chills or Flushing Restless Observation: 0= Sits Still Pupil Size: 0= Normal to Room Light Bone or Joint Aches: 2= Severe Diffuse Aches Runny Nose/ Eye Tearin= None GI Upset > 30mins: 0= None Tremor Observation of Outstretched Hands: 0= None Yawning Observation: 0= None Anxiety or Irritability: 2=Irritable/Anxious Goose Flesh Skin: 0=Smooth Skin COWS Score: 4 BHS Progress Note (SOAP) Subjective: c/o mild withdrawal symptoms. Objective: 12/19/19 15:24 Vital Signs 12/19/19 12/19/19 08:38 12:24 Temperature 97.7 F 98.0 F Pulse Rate 62 72 Respiratory 18 18 Rate Blood Pressure 122/82 120/79 O2 Sat by Pulse 98 Oximetry (%) Laboratory Last Values WBC 8.2 K/mm3 (4.0-10.0) 12/15/19 12:20 RBC 4.47 M/mm3 (3.60-5.2) 12/15/19 12:20 Hgb 13.0 GM/dL (10.7-15.3) 12/15/19 12:20 Hct 38.6 % (32.4-45.2) 12/15/19 12:20 MCV 86.2 fl (80-96) 12/15/19 12:20 MCH 29.0 pg (25.7-33.7) 12/15/19 12:20 MCHC 33.6 g/dl (32.0-36.0) 12/15/19 12:20 RDW 14.0 % (11.6-15.6) 12/15/19 12:20 Plt Count 296 K/MM3 (134-434) D 12/15/19 12:20 MPV 9.5 fl (7.5-11.1) 12/15/19 12:20 Sodium 136 mmol/L (136-145) 12/15/19 12:20 Potassium 4.4 mmol/L (3.5-5.1) 12/15/19 12:20 Chloride 100 mmol/L (98-107) 12/15/19 12:20 Carbon Dioxide 30 mmol/L (21-32) 12/15/19 12:20 Anion Gap 6 MMOL/L (8-16) L 12/15/19 12:20 BUN 18.4 mg/dL (7-18) H 12/15/19 12:20 Creatinine 0.8 mg/dL (0.55-1.3) 12/15/19 12:20 Est GFR (CKD-EPI)AfAm 108.39 12/15/19 12:20 Est GFR (CKD-EPI)NonAf 93.52 12/15/19 12:20 Random Glucose 90 mg/dL (74-106) 12/15/19 12:20 Calcium 9.3 mg/dL (8.5-10.1) 12/15/19 12:20 Total Bilirubin 0.4 mg/dL (0.2-1) 12/15/19 12:20 AST 19 U/L (15-37) 12/15/19 12:20 ALT 15 U/L (13-61) 12/15/19 12:20 Alkaline Phosphatase 70 U/L (45-117) 12/15/19 12:20 Total Protein 8.3 g/dl (6.4-8.2) H 12/15/19 12:20 Albumin 4.0 g/dl (3.4-5.0) 12/15/19 12:20 POC Urine HCG, Qual Negative 12/15/19 11:47 Syphilis Serology Non-reactive (NONREACTIVE) 12/15/19 12:20 COVID-19 (STEVE) Not detected (Not Detected) 12/15/19 12:40 Labs noted. Assessment: 12/19/19 15:24 AOX3, in no acute respiratory distress. Full ROM, ambulating in the unit. Mild Withdrawal symptoms. For d/c tomorrow. Plan: continue detox. D/C in AM.
[2019-12-19] MEDS ORDERED: GABAPENTIN 100 MG CAPSULE PO ONE ×2 (16:01→17:30)
[2019-12-19] MEDS ORDERED: traZODone HCL 100 MG TABLET (FP) PO SCH (16:02)
--- NOTE | 2019-12-19 16:11 | PN ---
Psychiatric Progress Note Vital Signs: Vital Signs Period Temp Pulse Resp BP Sys/Whittaker Pulse Ox Last 24 Hr 97.7 F-98.0 F 62-92 16-18 100-124/56-82 98-98 Date of Session: 12/19/19 Chief Complaint:: " I need medication for anxiety." HPI: Patient admitted to for treatment of heroin dependence. ROS: Patient is anxious but alert + oriented X3. Current Medications: Active Medications Generic Name Dose Route Start Last Admin Trade Name Freq PRN Reason Stop Dose Admin Acetaminophen 650 mg 12/15/19 11:59 12/16/19 20:46 Tylenol - PO 650 mg Q6H PRN Administration PAIN LEVEL 4 - 6 Acetaminophen 650 mg 12/15/19 11:59 Tylenol - PO Q6H PRN FEVER Al Hydroxide/Mg Hydroxide 30 ml 12/15/19 11:59 Mylanta Oral Suspension - PO Q6H PRN DYSPEPSIA Bismuth Subsalicylate 30 ml 12/15/19 11:59 Pepto-Bismol Liquid - PO Q1H PRN DIARRHEA Eucalyptus/Menthol/Phenol/Sorbitol 1 each 12/15/19 11:59 Cepastat Lozenge - MM 12/21/19 11:59 Q4H PRN SORE THROAT Gabapentin 200 mg 12/19/19 22:00 Neurontin - PO TID SRIKANTH Gabapentin 200 mg 12/19/19 16:01 Neurontin - PO 12/19/19 16:02 ONCE ONE Ibuprofen 400 mg 12/15/19 11:59 Motrin - PO Q6H PRN PAIN LEVEL 1 - 3 Magnesium Citrate 300 ml 12/15/19 11:59 Citroma - PO Q48H PRN CONSTIPATION Magnesium Hydroxide 30 ml 12/15/19 11:59 Milk Of Magnesia - PO PRN PRN CONSTIPATION Melatonin 5 mg 12/15/19 22:00 12/18/19 22:00 Melatonin PO 5 mg HS SRIKANTH Administration Methadone HCl 5 mg 12/20/19 06:00 Dolophine - PO 12/20/19 06:01 ONCE@0600 ONE Methocarbamol 500 mg 12/15/19 11:59 12/19/19 09:34 Robaxin - PO 12/21/19 11:59 500 mg Q6H PRN Administration MUSCLE SPASMS Nicotine 7 mg 12/16/19 10:00 12/19/19 09:32 Nicoderm Patch - TD Not Given DAILY SRIKANTH Nicotine Polacrilex 2 mg 12/15/19 11:59 12/19/19 13:28 Nicorette Gum - BUC 2 mg Q2H PRN Administration NICOTINE REPLACEMENT RX Ondansetron HCl 4 mg 12/15/19 11:59 12/19/19 11:55 Zofran Odt - SL 4 mg Q8H PRN Administration Nausea/Vomiting Multivit/Folic Acid/Iron 1 tab 12/16/19 10:00 12/19/19 09:31 Vitamins (Sjr) - PO 1 tab DAILY SRIKANTH Administration Thiamine HCl 100 mg 12/15/19 22:00 12/18/19 22:00 Vitamin B1 - PO 100 mg HS SRIKANTH Administration Trazodone HCl 100 mg 12/19/19 16:02 Desyrel - PO HS SRIKANTH Medication(s) Change(s): Yes. 1)Will order Gabapentin 200mg TID starting at 22:00. 2) One time dose of gabapentin 200 ordered. 3) Will d/c trazodone 50mg HS. 4) Will order Trazodone 100mg HS. Benefits and side effects discussed. Verbal consent given. Current Side Effect: No Lab tests ordered: No Provider note:: Patient seen by Dr. Jasso. Dr. Jasso note read and appreciated. Ms. Fuentes requesting to speak to a psychiatric provider concerning her anxiety. Patient states that she is prescribed [facility] T[facility] her anxiety which is caused by her history of PTSD. Ms. Fuentes denies taking xanax daily. She reports taking xanax only when needed and states that she last took xanax on saturday. Patient informed that xanax will not be prescribed once her valium taper is complete. Patient in agreement to an alternative medication for anxiety. Will order gabapentin 200mg TID. Complaint Analyst will order a one time dose of gabapentin. Will also increase trazodone as patient is also reporting sleeping poorly. Patient satisifed and receptive to feedback. Benefits and side effects discussed. Verbal consent given. Total face to face time:: 25 Mental Status Exam - Mental Status Exam Alert and Oriented to: Time, Place, Person Cognitive Function: Good Patient Appearance: Well Groomed Mood: Anxious Affect: Mood Congruent Patient Behavior: Crying (Patient became tearful while discussing her anxiety.), Restless, Cooperative Speech Pattern: Appropriate Voice Loudness: Normal Thought Process: Intact, Goal Oriented Thought Disorder: Not Present Hallucinations: Denies Suicidal Ideation: Denies Homicidal Ideation: Denies Insight/Judgement: Poor Sleep: Poorly Appetite: Fair Muscle strength/Tone: Normal Gait/Station: Normal Psychiatric Treatment Plan - Problem List (1) Opioid dependence with withdrawal Current Visit: Yes Comment: . (2) Anxiety disorder Current Visit: Yes Qualifiers: Anxiety disorder type: generalized anxiety disorder Qualified Code(s): F41.1 - Generalized anxiety disorder Comment: . (3) History of depression Current Visit: Yes (4) Nicotine dependence Current Visit: Yes Qualifiers: Nicotine product type: cigarettes Substance use status: uncomplicated Qualified Code(s): F17.210 - Nicotine dependence, cigarettes, uncomplicated Comment: . (5) PTSD (post-traumatic stress disorder) Current Visit: Yes Comment: As per self-report. (6) Substance-induced sleep disorder Current Visit: Yes
[2019-12-19] MEDS: GABAPENTIN 100 MG CAPSULE PO SCH (22:22)
[2019-12-19] MEDS: THIAMINE HCL 100 MG TABLET (FP) PO SCH (22:22)
[2019-12-19] MEDS: MELATONIN 5 MG TABLETS PO SCH (22:22)
[2019-12-20] MEDS ORDERED: METHADONE HCL 5 MG TABLET (FOR DETOX USE ONLY) PO ONE (06:00)
[2019-12-20] MEDS: METHOCARBAMOL 500 MG TABLET PO PRN (06:41)
[2019-12-20] MEDS: GABAPENTIN 100 MG CAPSULE PO SCH (06:41)
--- NOTE | 2019-12-20 09:09 | DS ---
[facility] Detox Discharge Summary Admission Date: 12/15/19 Discharge Date: 12/20/19 - History Present History: Opioid Dependence Additional Comments: 39 years old female was admtited on 12/15/19 for opiate withdrawal sx management treated with methadone detox regiment seen by psychiatrist sarbjit gapabpentin and trazodone ms villarreal has completed the methadone detox regiment and is tolerated well General Appearance: Yes: No Apparent Distress, Nourished, Appropriately Dressed HEENTM: Yes: EOMI, Hearing grossly Normal, Normocephalic, Normal Voice Respiratory: Yes: Lungs Clear, No Respiratory Distress, No Accessory Muscle Use Neck: Yes: Within Normal Limits, Supple Breast: Yes: Breast Exam Deferred Cardiology: Yes: Regular Rhythm, Regular Rate Abdominal: Yes: Normal Bowel Sounds, Non Tender, Flat, Soft Genitourinary: Yes: Other (deferred) Back: Yes: Normal Inspection Musculoskeletal: Yes: Gait Steady Extremities: Yes: Normal Inspection, Non-Tender Neurological: Yes: Alert, Normal Response Integumentary: Yes: Normal Color, Dry, Warm, Track Barrett (no sign of infection) Pertinent Past History: time for discharge 42 minutes transferred order set from detox to rehab - Physical Exam Results Vital Signs: Vital Signs Temperature 97.7 F 12/20/19 07:19 Pulse Rate 69 12/20/19 07:19 Respiratory Rate 18 12/20/19 07:19 Blood Pressure 100/57 L 12/20/19 07:19 O2 Sat by Pulse Oximetry (%) 97 12/20/19 07:19 Pertinent Admission Physical Exam Findings: opiate withdrawal Vital Signs - 24 hr 12/19/19 12/19/19 12/20/19 16:50 20:54 07:19 Temperature 97.5 F L 97.3 F L 97.7 F Pulse Rate 80 88 69 Respiratory 18 19 18 Rate Blood Pressure 118/78 106/65 100/57 L O2 Sat by Pulse 100 97 Oximetry (%) 12/20/19 08:33 Temperature 97.3 F L Pulse Rate 87 Respiratory 18 Rate Blood Pressure 123/78 O2 Sat by Pulse Oximetry (%) Laboratory Tests 12/15/19 12/15/19 12/15/19 11:47 12:20 12:20 WBC 8.2 RBC 4.47 Hgb 13.0 Hct 38.6 MCV 86.2 MCH 29.0 MCHC 33.6 RDW 14.0 Plt Count 296 D MPV 9.5 Sodium 136 Potassium 4.4 Chloride 100 Carbon Dioxide 30 Anion Gap 6 L BUN 18.4 H Creatinine 0.8 Est GFR (CKD-EPI)AfAm 108.39 Est GFR (CKD-EPI)NonAf 93.52 Random Glucose 90 Calcium 9.3 Total Bilirubin 0.4 AST 19 ALT 15 Alkaline Phosphatase 70 Total Protein 8.3 H Albumin 4.0 POC Urine HCG, Qual Negative Syphilis Serology COVID-19 (STEVE) 12/15/19 12/15/19 12:20 12:40 WBC RBC Hgb Hct MCV MCH MCHC RDW Plt Count MPV Sodium Potassium Chloride Carbon Dioxide Anion Gap BUN Creatinine Est GFR (CKD-EPI)AfAm Est GFR (CKD-EPI)NonAf Random Glucose Calcium Total Bilirubin AST ALT Alkaline Phosphatase Total Protein Albumin POC Urine HCG, Qual Syphilis Serology Non-reactive COVID-19 (STEVE) Not detected lab noted - Treatment Hospital Course: Detox Protocol Followed, Detoxed Safely, Responded well, Discharged Condition Good, Rehab Referral Accepted Patient has Accepted [facility] Referral [facility]: [facility] - Medication Discharge Medications: Ambulatory Orders Dextroamphetamine/Amphetamine [Adderall Xr 30 mg Capsule] 30 mg PO TID 11/22/19 Zolpidem Tartrate [Ambien] 10 mg PO HS 11/22/19 Alprazolam [Xanax] 1 mg PO TID 12/15/19 traZODone HCL [Trazodone HCl] 100 mg PO HS 12/20/19 - Diagnosis (1) Substance induced mood disorder Status: Suspected (2) Opioid dependence with withdrawal Status: Acute (3) Nicotine dependence Status: Acute Qualifiers: Nicotine product type: cigarettes Substance use status: in withdrawal Qualified Code(s): F17.213 - Nicotine dependence, cigarettes, with withdrawal - AMA Did Patient Leave Against Medical Advice: No COWS (PN) - Opiate Withdrawal Resting Pulse: 0= [place] 80 or Below Sweatin= No chills or Flushing Restless Observation: 0= Sits Still Pupil Size: 0= Normal to Room Light Bone or Joint Aches: 1= Mild Discomfort Runny Nose/ Eye Tearin= None GI Upset > 30mins: 0= None Tremor Observation of Outstretched Hands: 0= None Yawning Observation: 0= None Anxiety or Irritability: 1=Feels Anxious/Irritable Goose Flesh Skin: 0=Smooth Skin COWS Score: 2
[2019-12-20] MEDS: PRENATAL VITAMINS W/ FOLIC ACID TABLET (FP) PO SCH (09:22)
[2019-12-20] MEDS: NICOTINE 7 MG/24 HOURS TOPICAL PATCH TD SCH (09:22)
[2019-12-20] MEDS: NICOTINE POLACRILEX 2 MG GUM BUC PRN (09:23)
[2019-12-20 09:38] VITALS: BP 123/78; PULSE 87; TEMP 97.3
== END 2019-12-20 10:45 | disposition other institution (70) | DRG 773 ==
LOC: YASAS 10:34 → Y3N 12:05
PROVIDERS: ADMIT Allergy & Immunology; ATTEND Allergy & Immunology
PROC: HZ2ZZZZ Detoxification Services for Substance Abuse Treatment (ICD-10-PCS; principal; 2019-12-15)
DX: F11.23 Opioid dependence with withdrawal (principal); F17.210 Nicotine dependence, cigarettes, uncomplicated; F19.282 Other psychoactive substance dependence with psychoactive substance-induced sleep disorder; F19.24 Other psychoactive substance dependence with psychoactive substance-induced mood disorder; F41.1 Generalized anxiety disorder; F32.9 Major depressive disorder, single episode, unspecified; F43.10 Post-traumatic stress disorder, unspecified; G47.00 Insomnia, unspecified; Z87.19 Personal history of other diseases of the digestive system; Z56.0 Unemployment, unspecified
CPT/HCPCS: 36415; 80053; 81025; 85027; 86780; C9803; Q0162; U0003

== ENCOUNTER 2019-12-20 10:38 | Inpatient (IN) | payer OTHER ==
--- NOTE | 2019-12-20 09:11 | HP ---
[facility] Rehab Assess/Revision - Admission History Admitted to Rehab from: [facility] Date of Admission to Rehab: 12/20/19 - Findings Detox History & Physical reviewed: Yes Concur with findings: Yes Comments/Additional Findings: transferred from detox to rehab admission as per protocol Inpatient Rehab Admission - Rehab Decision to Admit Inpatient rehab admission?: Yes - Initial Determination Are CD services needed?: Yes Free of communicable disease: Yes Not in need of hospitalization: Yes - Rehab Admission Criteria Previous failed treatment: Yes Poor recovery environment: Yes Comorbidities: Yes Lacks judgement: Yes Patient is meeting Inpatient Rehab admission criteria:: Yes
[~2019-12-20 10:38] MED LIST: ACETAMINOPHEN 325 MG TABLET (FP) PO PRN; IBUPROFEN 400 MG TABLET (FP) PO PRN; LOPERAMIDE HCL 2 MG CAPSULE PO PRN; MAG HYDROX/AL HYDROX/SIMETH 30 ML UNIT-DOSE CUP PO PRN; MAGNESIUM CITRATE 300 ML BOTTLE PO PRN; MAGNESIUM HYDROX 2400MG/30ML ORAL SUSPENSION 30 ML CUP PO PRN; P-EPHED 60MG/TRIPROLIDI 2.5MG TABLET PO PRN; guaiFENesin 200 MG/10 ML 10 ML UNIT-DOSE CUPS PO PRN
--- OUTSIDE RECORDS SUMMARY | 2019-12-20 10:43 | XMS ---
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 10.0 Normal (applies [place] [facility] brent mg/dL to [facility] results) [facility] Total Protein 8.0 g/dL Normal (applies [facility] erian to [facility] results) [facility] Alk Phos 76 Normal (applies [place] [facility] n unit/L to [facility] results) [facility] [place] Bili Total 0.20 Normal (applies [place] [email or web address] an mg/dL to [facility] results) [facility] ALT 35 Normal (applies [place] [facility] n unit/L to [facility] results) [facility] AST 39 Above high normal [facility] brent unit/L - [facility] ID Date Data Source [id number] 03/26/2019 06:20:00 PM EST [facility] [id number] [facility] [place] Name Value Range Interpretation Description Data Source(s ) Supporting Code Document(s ) RBC 4.53 Normal (applies to [place] [facility] jose miguel x10(6)/[facility] results[facility] WBC 7.4 Normal (applies to [place] [facility] jose miguel x10(3)/mc [facility] L results) [facility] Hgb 13.1 g/dL Normal (applies to [facility] jose miguel [facility] results) [facility] Hct 40.0 % Normal (applies to [facility] jose miguel [facility] results) [facility] MCV 88.3 fL Normal (applies to [facility] results) [facility] Platelet 251 Normal (applies to [place] [facility] jose miguel x10(3)/mc non-numeric - [facility] L results) [facility] MCHC 32.9 g/dL Below low normal [facility] an - [facility] RDW 13.6 % Normal (applies to [facility] non-numeric - [facility] results) [facility] [place] MCH 29.0 pg Normal (applies to [facility] non-numeric [facility] results) [facility] [place] MPV 9.0 fL Normal (applies to [facility]-numeric [facility] results) Hospital Center ID Date Data Source [id number] 03/26/2019 06:04:00 PM EST [facility] [id number] [facility] Name Value Range Interpretation Description Data Source(s ) Supporting Code Document(s ) UA RBC 0-4 /HPF Normal (applies [place] to non-numeric [facility] - results) [facility] UA WBC 0-4 /HPF Normal (applies [place] to non-numeric [facility] - results) [facility] UA Squam 5-9 /HPF [place] Epithelial [facility] UA Bacteria Occasional [place] /HPF [facility] ID Date Data Source [id number] 03/26/2019 06:04:00 PM EST [facility] [id number] [facility] Name Value Range Interpretation Description Data Source(s ) Supporting Code Document(s ) UA Glucose Negative Normal (applies [place] (03/26/19 to non-numeric [facility] - 6:04 PM) results) [facility] UA Protein Negative Normal (applies [place] (03/26/19 to non-numeric [facility] - 6:04 PM) results) [facility] UA Bili Negative Normal (applies [place] (03/26/19 to non-numeric [facility] - 6:04 PM) results) [facility] UA Normal Normal (applies [place] Urobilinogen (03/26/19 to non-numeric [facility] - 6:04 PM) results) [facility] UA pH 6.5 Normal (applies [place] to non-numeric [facility] - results) [facility] UA Ketones Negative Normal (applies [place] (03/26/19 to non-numeric [facility] - 6:04 PM) results) [facility] UA Nitrite Negative Normal (applies [place] (03/26/19 to non-numeric [facility] - 6:04 PM) results) [facility] UA Blood Negative Normal (applies [place] (03/26/19 to non-numeric [facility] - 6:04 PM) results) [facility] UA Leuk Est Negative Normal (applies [place] (03/26/19 to non-numeric [facility] - 6:04 PM) results) [facility] UA Appear Cloudy [place] *ABN*(03/26 6:04 [facility] PM) [facility] UA Spec Grav Below low normal [facility] UA Color Yellow Normal (applies [place] (03/26/19 to non-numeric [facility] - 6:04 PM) results) [facility] ID Date Data Source [id number] 03/26/2019 06:04:00 PM EST [facility] [id number] [facility] Name Value Range Interpretation Description Data Source(s ) Supporting Code Document(s ) U beta Neg Normal (applies to [facility] jose miguel hCG Ql (03/26/19 non-[facility] 6:04 PM) results) Hospital Center ID Date Data Source [id number] 03/11/2019 08:03:00 PM EST [facility] [id number] [facility] Name Value Range Interpretation Description Data Source(s ) Supporting Code Document(s ) HIV Rapid Non-React Normal (applies to [facility] jose miguel gonzález non-[facility] (03/11/19 results) [facility] 8:03 PM) ID Date Data Source [id number] 03/11/2019 08:01:00 PM EST [facility] [id number] [facility] Name Value Range Interpretation Description Data Source(s ) Supporting Code Document(s ) Beta hCG Neg Normal (applies to [place] Prest[facility] jose miguel Ql (03/11/19 non-numeric - [facility] 8:01 PM) results) Hospital Center ID Date Data Source [id number] 03/11/2019 07:34:00 PM EST [facility] [id number] [facility] Name Value Range Interpretation Description Data Source(s ) Supporting Code Document(s ) UA RBC 0-4 /HPF Normal (applies [place] to non-numeric [facility] - results) [facility] UA Squam Occasional [place] Epithelial /HPF [facility] UA WBC 0-4 /HPF Normal (applies [place] to non-numeric [facility] - results) [facility] UA Bacteria Occasional [place] /HPF [facility] - [facility] ID Date Data Source [id number] 03/11/2019 07:34:00 PM EST [facility] [id number] [facility] Name Value Range Interpretation Description Data Source(s ) Supporting Code Document(s ) UA Glucose Negative Normal (applies [place] (03/11/19 to non-numeric [facility] - 7:34 PM) results) [facility] UA Protein 50 mg/dL [facility] UA Bili Negative Normal (applies [place] (03/11/19 to non-numeric [facility] - 7:34 PM) results) [facility] UA pH 6.0 Normal (applies [place] to non-numeric [facility] - results) [facility] UA Normal Normal (applies [place] Urobilinogen (03/11/19 to non-numeric [facility] - 7:34 PM) results) [facility] UA Ketones Negative Normal (applies [place] (03/11/19 to non-numeric [facility] - 7:34 PM) results) [facility] UA Nitrite Negative Normal (applies [place] (03/11/19 to non-numeric [facility] - 7:34 PM) results) [facility] UA Blood Negative Normal (applies [place] (03/11/19 to non-numeric [facility] - 7:34 PM) results) [facility] UA Appear Clear Normal (applies [place] (03/11/19 to non-numeric [facility] - 7:34 PM) results) [facility] UA Spec Grav 1.008 Normal (applies [place] to non-numeric [facility] - results) [facility] UA Leuk Est Negative Normal (applies [place] (03/11/19 to non-numeric [facility] - 7:34 PM) results) [facility] UA Color Light Normal (applies [place] Yellow to non-numeric [facility] - (03/11/19 results) [facility] 7:34 PM) Hospital Center ID Date Data Source [id number] 03/11/2019 07:32:00 PM EST [facility] [id number] [facility] Name Value Range Interpretation Description Data Source(s ) Supporting Code Document(s ) [facility] - [facility] ID Date Data Source [id number] 03/11/2019 07:32:00 PM EST [facility] [id number] [facility] Name Value Range Interpretation Code Description Data Mirna rce(s) Supporting Document(s ) EGFR Non [place] [facility] - AA [facility] EGFR AA [facility] ID Date Data Source [id number] 03/11/2019 07:32:00 PM EST [facility] [id number] [facility] Name Value Range Interpretation Description Data Source(s ) Supporting Code Document(s ) Neutro 54.9 % Below low normal [place] [facility] Percent - [facility] Lymph 34.3 % Normal (applies [place] [facility] [place] Percent to non-numeric - [facility] results) [facility] Eos Percent 2.2 % Normal (applies [place] [facility] brent to non-numeric [facility] results) [facility] Baso Percent 0.8 % Normal (applies [place] [facility] jose miguel to non-numeric [facility] results) [facility] Scott Percent 7.8 % Normal (applies [place] [facility] jose miguel to non-numeric - [place] results) [facility] Lymph 2.6 Normal (applies [place] [facility] Absolute x10(3)/mc to non-numeric - [place] L results) [facility] Scott 0.6 Normal (applies [place] [facility] [place] Absolute x10(3)/mc to non-numeric - [place] L results) [facility] Neutro 4.2 Normal (applies [place] [facility] [place] Absolute x10(3)/mc to non-numeric - [place] L results) [facility] Eos Absolute 0.2 Normal (applies [place] [facility] jose miguel x10(3)/mc to non-numeric - [place] L results) [facility] Baso 0.1 Normal (applies [place] [facility] Absolute x10(3)/mc to non-numeric - [place] L results) Hospital [facility] ID Date Data Source [id number] 03/11/2019 07:32:00 PM EST [facility] [id number] [facility] Name Value Range Interpretation Description Data Source(s ) Supporting Code Document(s ) Troponin Neg Normal (applies [place] [facility] Prelim (03/11/19 to non-numeric - [place] 7:32 PM) results) Hospital [facility] ID Date Data Source [id number] 03/11/2019 07:32:00 PM EST [facility] [id number] [facility] Name Value Range Interpretation Description Data Source(s ) Supporting Code Document(s ) Lactic 1.0 Normal (applies to [place] [facility] jose miguel Acid Lvl mmol/L non-numeric - [place] results) Hospital [facility] ID Date Data Source [id number] 03/11/2019 07:32:00 PM EST [facility] [id number] [facility] Name Value Range Interpretation Description Data Source(s ) Supporting Code Document(s ) WBC 7.7 Normal (applies to [place] [facility] jose miguel x10(3)/mc non-numeric - [place] L results) [facility] RBC 4.90 Normal (applies to [place] [facility] jose miguel x10(6)/mc non-numeric - [place] L results) [facility] Hgb 14.4 g/dL Normal (applies to [facility] non-[facility] results) [facility] MCV 88.6 fL Normal (applies to [facility] non-[facility] results) [facility] Hct 43.4 % Normal (applies to [facility] non-[facility] results) [facility] RDW 14.3 % Normal (applies to [facility] non-[facility] results) [facility] MCH 29.5 pg Normal (applies to [facility] jose miguel non-[facility] results) [facility] MCHC 33.3 g/dL Normal (applies to [facility] non-[facility] results) [facility] MPV 9.2 fL Normal (applies to [facility] results) [facility] [place] Platelet 281 Normal (applies to [facility] x10(3)/mc non-[facility] L results) Hospital [facility] ID Date Data Source [id number] 03/11/2019 07:32:00 PM EST [facility] [id number] [facility] Name Value Range Interpretation Code Description Data Mirna rce(s) Supporting Document(s ) PT 11.2 s Normal (applies to [place] Prest[facility] jose miguel - non-numeric results) [facility] INR 1.0 Normal (applies to [facility] - non-numeric results) [facility] ID Date Data Source [id number] 03/11/2019 07:32:00 PM EST [facility] [id number] [facility] Name Value Range Interpretation Description Data Source(s ) Supporting Code Document(s ) Glucose Lvl 87 mg/dL Normal (applies [place] [facility] brent to non-[facility] results) [facility] BUN 10 mg/dL Normal (applies [place] [facility] n to [facility] results) [facility] [place] Sodium Lvl 139 Normal (applies [place] [facility] an mmol/L to non-[facility] results) [facility] Potassium Lvl 4.4 Normal (applies [place] Pres[facility]t erian mmol/L to non-[facility] results) [facility] Creatinine 0.60 Normal (applies [place] [facility] an mg/dL to non-[facility] results) [facility] Chloride 100 Normal (applies [place] [facility] n mmol/L to non-[facility] results) [facility] AGPK 11.4 Normal (applies [place] [facility] n to non-[facility] results) [facility] CO2 32 Above high normal [place] [facility] brent mmol/L - [facility] Calcium Lvl 9.7 Normal (applies [place] [facility] brent mg/dL to non-[facility] results) [facility] Total Protein 8.3 g/dL Above high normal [facility] Albumin Lvl 4.6 g/dL Normal (applies [place] [facility] brent to non-[facility] results) [facility] Alk Phos 74 Normal (applies [place] [facility] n unit/L to [facility] results) [facility] ALT 30 Normal (applies [place] [facility] n unit/L to non-[facility] results) [facility] AST 45 Above high normal [place] [facility] brent unit/L - [facility] Bili Total 0.30 Normal (applies [place] [facility] an mg/dL to [facility] results) [facility] ID Date Data Source [id number] 01/19/2019 10:45:00 AM EST [facility] [id number] Hospital [facility] Name Value Range Interpretation Code Description Data Mirna rce(s) Supporting Document(s ) RADRPT <table [place] [facility] border="1" - [facility] width="95%"><col Hospital Cent er group><col width="25%"></co l><col width="25%"></co l><col width="25%"></co l><col width="25%"></co l></colgroup><tb janina><tr><td>Exam Date Time</td><td>Pro cedure</td><td>P erforming Provider</td><td >Status</td></tr ><tr><td> 9 11:00 AM</td><td>US Transvaginal Non-OB</td><td>A LBERT RDMS, DONATA; </td><td>Auth (Verified)</td>< /tr></tbody></ta ble><paragraph>N otes:</paragraph ><paragraph>(US Transvaginal Non-OB) Reason For Exam: Pain, Abdominal,</para graph><paragraph ><content>Report </content>
< content ID="[id number]">EXAMINATI ON: Pelvic ultrasound. Endovaginal .

Delfino rison [...] ELLE </content></para graph> ID Date Data Source [id number] 01/19/2019 07:57:00 AM EST [facility] [id number] [facility] Name Value Range Interpretation Code Description Data Mirna rce(s) Supporting Document(s ) EGFR AA [facility] EGFR Non [facility] - AA [facility] ID Date Data Source [id number] 01/19/2019 07:57:00 AM EST [facility] [id number] [facility] Name Value Range Interpretation Description Data Source(s ) Supporting Code Document(s ) Lymph Man 14.0 % Below low normal [facility] Segs Man 79.0 % Above high normal [facility] Man 4.0 % Normal (applies [place] [facility] n to [facility] results) [facility] [place] Eos Man 0.0 % Normal (applies [place] [facility] n to [facility] results) [facility] [place] Monocyte 2.0 % Normal (applies [place] [facility] n Man to [facility] results) [facility] [place] Basophil 0.0 % Normal (applies [place] [facility] n Man to [facility] results) [facility] [place] Atyp Lymph 1.0 % Above high normal [facility] Plts Morph Plt Normal (applies [place] [facility] an Adequate to [facility] (01/19/19 results) Hospital [facility] 7:57 AM) RBC Morph Normal Normal (applies [place] [facility] (01/19/19 to non-numeric [facility] 7:57 AM) results) Hospital [facility] ID Date Data Source [id number] 01/19/2019 07:57:00 AM EST [facility] [id number] [facility] Name Value Range Interpretation Description Data Source(s ) Supporting Code Document(s ) Lymph 13.3 % Below low normal [place] [facility] Percent - [facility] Neutro 84.0 % Above high normal [place] [facility] brent Percent - [facility] Neutro 7.7 Normal (applies [place] Absolute x10(3)/mc to non-numeric - [facility] L results) [facility] Baso Percent 0.6 % Normal (applies [place] [facility] jose miguel to non-numeric [facility] results) [facility] Eos Percent 0.1 % Normal (applies [place] brent to non-numeric - [facility] results) [facility] Scott Percent 2.0 % Normal (applies [place] [facility] jose miguel to non-numeric [facility] results) [facility] Lymph 1.2 Normal (applies [place] Absolute x10(3)/mc to non-numeric - [facility] L results) [facility] Eos Absolute 0.0 Normal (applies [place] [facility] jose miguel x10(3)/mc to non-numeric - [facility] L results) [facility] Scott 0.2 Normal (applies [place] Absolute x10(3)/mc to non-numeric - [facility] L results) [facility] Baso 0.1 Normal (applies [place] Absolute x10(3)/mc to non-numeric - [facility] L results) Hospital [facility] ID Date Data Source [id number] 01/19/2019 07:57:00 AM EST [facility] [id number] [facility] Name Value Range Interpretation Code Description Data Mirna rce(s) Supporting Document(s ) PT 12.2 s Normal (applies to [place] [facility] jose miguel - non-numeric results) [facility] INR 1.0 Normal (applies to [place] [facility] jose miguel - non-numeric results) [facility] ID Date Data Source [id number] 01/19/2019 07:57:00 AM EST [facility] [id number] [facility] Name Value Range Interpretation Description Data Source(s ) Supporting Code Document(s ) Lipase Lvl 36 unit/L Normal [facility] erian non-numeric [facility] results) Hospital Center ID Date Data Source [id number] 01/19/2019 07:57:00 AM EST [facility] [id number] [facility] Name Value Range Interpretation Description Data Source(s ) Supporting Code Document(s ) Bili 0.40 Above high normal [facility] brent Direct mg/dL - [facility] ID Date Data Source [id number] 01/19/2019 07:57:00 AM EST [facility] [id number] [facility] Name Value Range Interpretation Description Data Source(s ) Supporting Code Document(s ) Sodium Lvl 140 Normal (applies [place] [facility] [facility] mmol/L to non-numeric [facility] results) Hospital Center BUN 14 mg/dL Normal (applies [place] [facility] n to [facility] results) [facility] [place] Glucose Lvl 129 [facility] - [facility] Creatinine 0.51 Below low normal [facility] brent mg/dL - [facility] CO2 28 Normal (applies [place] [facility] n mmol/L to non-numeric [facility] results) Hospital Center Potassium Lvl 4.1 Normal (applies [place] Presbyt erian mmol/L to non-numeric [facility] results) [facility] Chloride 100 Normal (applies [place] [facility] n mmol/L to non-numeric [facility] results) [facility] AGPK 16.1 Normal (applies [place] [facility] [place] to non-numeric [facility] results) [facility] Total Protein 8.7 g/dL [facility] Albumin Lvl 4.8 g/dL Normal (applies [place] [facility] brent to non-[facility] results) Hospital [facility] Calcium Lvl 10.2 Normal (applies [place] [facility] brent mg/dL to non-[facility] results) [facility] Alk Phos 81 Normal (applies [place] [facility] n unit/L to non-[facility] results) [facility] AST 36 Normal (applies [place] [facility] n unit/L to non-[facility] results) Hospital [facility] Bili Total 0.60 Normal (applies [place] [facility] an mg/dL to non-[facility] results) [facility] ALT 17 Normal (applies [place] [facility] n unit/L to non-[facility] results) Hospital Center ID Date Data Source [id number] 01/19/2019 07:57:00 AM EST [place] [facility] [id number] Hospital [facility] Name Value Range Interpretation Description Data Source(s ) Supporting Code Document(s ) WBC 9.1 Normal (applies to [place] [facility] jose miguel x10(3)/ non-[facility] L results) Hospital [facility] RBC 4.77 Normal (applies to [place] [facility] jose miguel x10(6)/ non-[facility] L results) Hospital [facility] MCV 85.8 fL Normal (applies to [place] [facility] results) Hospital [facility] Hgb 14.0 g/dL Normal (applies to [place] Preste [facility] non-[facility] results) Hospital Center Hct 40.9 % Normal (applies to [place] [facility] jose miguel non-[facility] results) Hospital Center MCH 29.3 pg Normal (applies to [place] [facility] jose miguel non-[facility] results) [facility] Platelet 298 Normal (applies to [place] Presbyte jose miguel x10(3)/ non-[facility] L results) Hospital [facility] MPV 9.7 fL Normal (applies to [place] [facility] results[facility] RDW 14.1 % Normal (applies to [facility] non-[facility] results) Hospital Center MCHC 34.2 g/dL Normal (applies to [place] Prest[facility] jose miguel non-[facility] results) Hospital Center ID Date Data Source [id number] 01/19/2019 07:57:00 AM EST [facility] [id number] Hospital Center Name Value Range Interpretation Description Data Source(s ) Supporting Code Document(s ) Amylase Lvl 72 unit/L Normal (applies to [facility] results) Hospital Center ID Date Data Source [id number] 12/15/2018 07:52:00 PM EDT [facility] [id number] Hospital Center Name Value Range Interpretation Description Data Source(s ) Supporting Code Document(s ) UA Glucose Negative Normal (applies [place] (12/15/18 to non-numeric [facility] - 7:52 PM) results) [facility] UA Bili Negative Normal (applies [place] (12/15/18 to non-numeric [facility] - 7:52 PM) results) [facility] UA Protein Negative Normal (applies [place] (12/15/18 to non-numeric [facility] - 7:52 PM) results) [facility] UA Normal Normal (applies [place] Urobilinogen (12/15/18 to non-numeric [facility] - 7:52 PM) results) [facility] UA Blood Negative Normal (applies [place] (12/15/18 to non-numeric [facility] - 7:52 PM) results) [facility] UA Ketones Negative Normal (applies [place] (12/15/18 to non-numeric [facility] - 7:52 PM) results) [facility] UA pH 6.0 Normal (applies [place] to non-numeric [facility] - results) [facility] UA Nitrite Negative Normal (applies [place] (12/15/18 to non-numeric [facility] - 7:52 PM) results) [facility] UA Leuk Est Negative Normal (applies [place] (12/15/18 to non-numeric [facility] - 7:52 PM) results) [facility] UA Appear Clear Normal (applies [place] (12/15/18 to non-numeric [facility] - 7:52 PM) results) [facility] UA Spec Grav Below low normal [place] [facility] UA Color Light Normal (applies [place] Yellow [facility] ([facility]/18 results) [facility] 7:52 PM) [facility] ID Date Data Source [id number] 12/15/2018 07:23:00 PM EDT [facility] [id number] [facility] Name Value Range Interpretation Description Data Source(s ) Supporting Code Document(s ) Beta hCG 2.92 [facility] Quant mIU/mL - [facility] ID Date Data Source [id number] 12/15/2018 05:25:00 PM EDT [facility] [id number] [facility] Name Value Range Interpretation Code Description Data Mirna rce(s) Supporting Document(s ) RADRPT <table [facility] border="1" - [facility] width="95%"><col Hospital Cent er group><col width="25%"></co l><col width="25%"></co l><col width="25%"></co l><col width="25%"></co l></colgroup><tb janina><tr><td>Exam Date Time</td><td>Pro cedure</td><td>P erforming Provider</td><td >Status</td></tr ><tr><td>12/15/18 6:00 PM</td><td>US 1st Trimester</td><t d>CHASIDY BRITT; </td><td>Auth (Verified)</td>< /tr></tbody></ta ble><paragraph>N otes:</paragraph ><paragraph>(US 1st Trimester) Reason For Exam: Hemorrhage Early Preg</paragraph> <paragraph><cont ent>Report</cont ent>
<conten t ID="[id number]">First Trimester Pelvic Duplex Doppler Ultrasound.

CLINICAL HISTORY: [...] RIRI </content></para graph> ID Date Data Source [id number] 11/17/2018 10:20:00 PM EDT [facility] [id number] [facility] Name Value Range Interpretation Description Data Source(s ) Supporting Code Document(s ) U beta Pos [place] [facility] hCG Ql *ABN*(11/17 - 10:20 Hospital Center PM) ID Date Data Source [id number] 10/29/2018 01:17:00 PM EDT [facility] [id number] [facility] Name Value Range Interpretation Code Description Data Mirna rce(s) Supporting Document(s ) EGFR Non [facility] EGFR AA [facility] ID Date Data Source [id number] 10/29/2018 01:17:00 PM EDT [facility] [id number] [facility] Name Value Range Interpretation Description Data Source(s ) Supporting Code Document(s ) Segs Man 81.0 % Above high [place] normal [facility] Band Man 1.0 % Normal (applies [place] to non-numeric [facility] - results) [facility] Monocyte Man 2.0 % Normal (applies [place] to non-numeric [facility] - results) [facility] Lymph Man 16.0 % Below low normal [facility] Basophil Man 0.0 % Normal (applies [place] to non-numeric [facility] - results) [facility] Eos Man 0.0 % Normal (applies [place] to non-numeric [facility] - results) [facility] Plts Morph Plt Adequate Normal (applies [place] (10/29/18 to non-numeric [facility] - 1:17 PM) results) [facility] RBC Morph Abnormal Normal (applies [place] (10/29/18 to non-numeric [facility] - 1:17 PM) results) [facility] Anisocyte 1+ (10/29/18 Normal (applies [place] 1:17 PM) to non-numeric [facility] - results) [facility] Ovalocyte Occasional Normal (applies [place] (10/29/18 to non-numeric [facility] - 1:17 PM) results) [facility] ID Date Data Source [id number] 10/29/2018 01:17:00 PM EDT [facility] [id number] Hospital Center Name Value Range Interpretation Description Data Source(s ) Supporting Code Document(s ) Neutro 83.4 % Above high normal [place] [facility] brent Percent - [facility] Lymph 13.7 % Below low normal [place] [facility] [facility] Percent - [facility] Scott Percent 2.4 % Normal (applies [place] [facility] jose miguel to non-numeric - [facility] results) Hospital Center Baso Percent 0.4 % Normal (applies [place] [facility] jose miguel to non-[facility] results) Hospital Center Eos Percent 0.1 % Normal (applies [place] [facility] brent to non-numeric [facility] results) Hospital Center Neutro 9.4 Above high normal [place] [facility] brent Absolute x10(3)/mc - [facility] Eos Absolute 0.0 Normal (applies [place] [facility] jose miguel x10(3)/mc to non-numeric [facility] L results) Hospital [facility] Scott 0.3 Normal (applies [place] Absolute x10(3)/mc to non-numeric [facility] L results) Hospital [facility] Lymph 1.5 Normal (applies [place] Absolute x10(3)/mc to non-numeric - [facility] L results) [facility] Baso 0.0 Normal (applies [place] Absolute x10(3)/mc to non-numeric - [facility] L results) Hospital Center ID Date Data Source [id number] 10/29/2018 01:17:00 PM EDT [facility] [id number] Hospital Center Name Value Range Interpretation Description Data Source(s ) Supporting Code Document(s ) Beta hCG Neg Normal (applies to [place] Pres[facility] jose miguel Ql (10/29/18 non-numeric - [facility] 1:17 PM) results) Hospital Center ID Date Data Source [id number] 10/29/2018 01:17:00 PM EDT [facility] [id number] Hospital Center Name Value Range Interpretation Code Description Data Mirna rce(s) Supporting Document(s ) PT 11.9 s Normal (applies to [place] Prest[facility] jose miguel - non-numeric results) [facility] INR 1.0 Normal (applies to [facility] jose miguel - non-numeric results) [facility] ID Date Data Source [id number] 10/29/2018 01:17:00 PM EDT [facility] [id number] Hospital Center Name Value Range Interpretation Description Data Source(s ) Supporting Code Document(s ) Lipase Lvl 59 unit/L Normal (applies to [facility] erian non-numeric [facility] results) Hospital Center ID Date Data Source [id number] 10/29/2018 01:17:00 PM EDT [facility] [id number] Hospital Center Name Value Range Interpretation Description Data Source(s ) Supporting Code Document(s ) Bili 0.20 Normal (applies to [facility] jose miguel Direct mg/dL non-[facility] results) Hospital Center ID Date Data Source [id number] 10/29/2018 01:17:00 PM EDT [facility] [id number] [facility] [place] Name Value Range Interpretation Description Data Source(s ) Supporting Code Document(s ) BUN 14 mg/dL Normal (applies [place] [facility] [place] to non-[facility] results) [facility] Glucose Lvl 112 Above high normal [facility]dL - [facility] Sodium Lvl 143 Normal (applies [place] mmol/L to non-numeric [facility] results) Hospital [facility] Creatinine 0.65 Normal (applies [place] mg/dL to non-[facility] results) [facility] Potassium Lvl 3.7 Normal (applies [place] Presbyt erian mmol/L to non-numeric [facility] results) [facility] AGPK 13.7 Normal (applies [place] to non-numeric [facility] results) [facility] Chloride 102 Normal (applies [place] mmol/L to non-numeric [facility] results) [facility] Calcium Lvl 9.9 Normal (applies [place] brent mg/dL to [facility] results) [facility] CO2 31 Above high normal [place] [facility] brent mmol/L - [facility] [place] AST 34 Normal (applies [place] n unit/L to [facility] results) [facility] Total Protein 8.0 g/dL Normal (applies [place] Pres[facility] erian to [facility] results) [facility] ALT 36 Normal (applies [place] [facility] n unit/L to [facility] results) [facility] Albumin Lvl 4.5 g/dL Normal (applies [place] [facility] brent to [facility] results) [facility] Bili Total 0.30 Normal (applies [place] an mg/dL to [facility] results) [facility] Alk Phos 77 Normal (applies [place] Presteria n unit/L to [facility] results) Hospital Center ID Date Data Source [id number] 10/29/2018 01:17:00 PM EDT [facility] byterian - [facility] [id number] Hospital Center Name Value Range Interpretation Description Data Source(s ) Supporting Code Document(s ) WBC 11.2 Above high normal [place] [facility] brent x10(3)/ - [facility] RBC 4.79 Normal (applies to [place] [facility] jose miguel x10(6)/[facility] L results) Hospital Center Hgb 13.9 g/dL Normal (applies to [place] Preste jose miguel [facility] results) [facility] MCV 85.6 fL Normal ([facility] [place] [facility] results) [facility] Hct 41.0 % Normal ([facility] [place] [facility] MCHC 33.8 g/dL Normal (applies to [facility] results) [facility] RDW 14.5 % Normal ([facility] [place] [facility] MCH 29.0 pg Normal (applies to [place] [facility] non-[facility] results) [facility] MPV 10.0 fL Normal (applies to [facility] Platelet 265 Normal (applies to [facility] x10(3)/[facility] Hospital Center ID Date Data Source [id number] 10/29/2018 01:17:00 PM EDT [facility] [id number] Hospital Center Name Value Range Interpretation Description Data Source(s ) Supporting Code Document(s ) Amylase Lvl 81 unit/L Normal (applies to [facility] results) Hospital Center Procedure Social History Code Duration Value Status Description Data Source(s ) Smoking 05/01/2019 Ex-smoker completed Ex-smoker (finding) [facility] - 01:59:41 AM EST (finding) [facility] Smoking 05/01/2019 Ex-smoker completed Ex-smoker (finding) [facility] - 01:59:41 AM EST (finding) [facility] Vital Signs ID Date Data Source UNK Name Value Range Interpretation Code Description Data Source(s) Body temperature 98.5 Normal (applies to 98.5 [degF] [facility] - [degF] [facility] results) [facility] Mean blood 75 mm[Hg] 75 mm[Hg] [facility] n - pressure [facility] Diastolic blood 64 mm[Hg] Normal (applies to 64 mm[Hg] [facility] results) [facility] Systolic blood 96 mm[Hg] Normal (applies to 96 mm[Hg] [facility] results) [facility] Respiratory rate 18 br/min Normal (applies to 18 br/min [facility] - non-numeric [facility] results) [facility] Peripheral Pulse 70 bpm Normal (applies to 70 bpm [facility] - Rate [facility] results) [facility] Body height 169.000 cm 169.000 cm [facility] Body weight 62.000 kg 62.000 kg [facility] an - Measured [facility] Body surface area 1.71 1.71 [facility] Body weight 62 kg 62 kg [facility] an - Measured [facility] Body height 169 cm 169 cm [facility] Mean blood 81 mm[Hg] 81 mm[Hg] [place] [facility] - pressure [facility] Diastolic blood 67 mm[Hg] Normal (applies to 67 mm[Hg] N Y [facility] - pressure non-numeric [facility] results) [facility] Systolic blood 108 mm[Hg] Normal (applies to 108 mm[Hg] [facility] - pressure non-numeric [facility] results) [facility] Respiratory rate 18 br/min Normal (applies to 18 br/min [facility] - non-numeric [facility] results) [facility] Peripheral Pulse 76 bpm Normal (applies to 76 bpm [place] Presterian - Rate non-numeric [facility] results) [facility] Body temperature 99.0 Normal (applies to 99.0 [degF] [facility] - [degF] non-numeric [facility] results) [facility] Mean blood 71 mm[Hg] 71 mm[Hg] [facility] - pressure by [facility] Noninvasive Center Oxygen saturation 99 % 94-100 % Normal (applies to 99 % [facility] - in Blood non-numeric [facility] by results) Center Pulse oximetry Heart rate 70 bpm 60-100 bpm Normal (applies to 70 bpm [facility] - non-numeric [facility] results) Center Diastolic blood 55 mm[Hg] 60-90 mmHg 55 mm[Hg] [facility] Systolic blood 103 mm[Hg] 90-130 Normal (applies to 103 mm[Hg] [facility] - pressure mmHg non-numeric [facility] results) Center Oxygen saturation 100 % 94-100 % Normal (applies to 100 % [facility] - in Blood non-numeric [facility] Postductal by results) Center Pulse oximetry Diastolic blood 77 mm[Hg] 60-90 mmHg Normal (applies to 77 mm[Hg] [facility] - pressure non-numeric [facility] results) Center Systolic blood 116 mm[Hg] 90-130 Normal (applies to 116 mm[Hg] [facility] pressure mmHg non-numeric [facility] results) Center Heart rate 76 bpm 60-100 bpm Normal (applies to 76 bpm [facility] - non-numeric [facility] results) Center Body mass index 18.75 18.75 kg/m2 [facility] - (BMI) [Ratio] kg/m2 [facility] Body weight 54.2 kg 54.2 kg [facility] h - Measured [facility] Body height 170 cm 170 cm [facility] h - [facility] [place] Body mass index 18.75 18.75 kg/m2 [facility] - (BMI) [Ratio] kg/m2 [facility] Oxygen saturation 97 % 94-100 % Normal (applies to 97 % [facility] - in Blood non-numeric [facility] Postduct[facility] by results) Center Pulse oximetry Oxygen therapy [facility] alth - [Minimum Data [facility] ital Set] Center Diastolic blood 49 mm[Hg] 60-90 mmHg 49 mm[Hg] [facility] H ealth - pressure [facility] Systolic blood 107 mm[Hg] 90-130 Normal (applies to 107 mm[Hg] [facility] - pressure mmHg non-numeric [facility] results) Center Respiratory rate 18 br/min 14-20 Normal (applies to 18 br/min [facility] - br/min non-numeric [facility] results) Center Heart rate 77 bpm 60-100 bpm Normal (applies to 77 bpm [facility] - non-numeric [facility] results) Center Oral temperature 98.9 96.4-99.1 Normal (applies to 98.9 [degF] [facility] - [degF] DegF non-numeric [facility] results) Center Oral temperature 98.7 96.4-99.1 Normal (applies to 98.7 [degF] [facility] - [degF] DegF non-numeric [facility] results) Center Mean blood 87 mm[Hg] 87 mm[Hg] [facility] - pressure by [facility] Noninvasive Center Respiratory rate 17 br/min 14-20 Normal (applies to 17 br/min [facility] Health - br/min non-numeric [facility] results) Center Oxygen therapy [facility] - [Minimum Data [facility] Set] Center Oxygen saturation 98 % 94-100 % Normal (applies to 98 % [facility] Health - in Blood non-numeric [facility] Postductal by results) Center Pulse oximetry Diastolic blood 75 mm[Hg] 60-90 mmHg Normal (applies to 75 mm[Hg] [facility] - pressure non-numeric [facility] results) Center Systolic blood 111 mm[Hg] 90-130 Normal (applies to 111 mm[Hg] [facility] - pressure mmHg non-numeric [facility] results) Center Heart rate 79 bpm 60-100 bpm Normal (applies to 79 bpm [facility] scanR - non-numeric [facility] results) Center Body mass index 19.97 19.97 kg/m2 [facility] - (BMI) [Ratio] kg/m2 [facility] [place] Body weight 57.72 kg 57.72 kg [facility] - Measured [facility] [place] Body height 170 cm 170 cm [facility] h - [facility] [place] Body mass index 19.97 19.97 kg/m2 [facility] - (BMI) [Ratio] kg/m2 [facility] Center Oxygen saturation 96 % 94-100 % Normal (applies to 96 % [facility] Health - in Blood non-numeric [facility] Postductal by results) Center Pulse oximetry Oxygen therapy [facility] alth - [Minimum Data [facility] Set] Center Diastolic blood 71 mm[Hg] 60-90 mmHg Normal (applies to 71 mm[Hg] [facility] - pressure non-numeric [facility] results) Center Systolic blood 109 mm[Hg] 90-130 Normal (applies to 109 mm[Hg] [facility] - pressure mmHg non-numeric [facility] results) Center Respiratory rate 18 br/min 14-20 Normal (applies to 18 br/min [facility] - br/min non-numeric [facility] [facility] results[facility] Heart rate 80 bpm 60-100 bpm Normal (applies to 80 bpm [facility] - non-numeric [facility] results) Center Oral temperature 98.8 96.4-99.1 Normal (applies to 98.8 [degF] [facility] - [degF] DegF non-numeric [facility] results) [place] Mean blood 76 mm[Hg] 76 mm[Hg] [facility] Diastolic blood 61 mm[Hg] Normal (applies to 61 mm[Hg] [facility] - pressure non-numeric [facility] results) [facility] Systolic blood 106 mm[Hg] Normal (applies to 106 mm[Hg] [place] [facility] - pressure non-numeric [facility] results) [facility] Respiratory rate 20 br/min Normal (applies to 20 br/min [facility] - non-numeric [facility] results) [facility] Peripheral Pulse 81 bpm Normal (applies to 81 bpm [place] [facility] - Rate non-numeric [facility] results) [facility] Body temperature 97.8 97.8 [degF] [facility]ian - - Temporal artery [degF] [facility] Body height 170.000 cm 170.000 cm [facility] Body weight 54.000 kg 54.000 kg [facility] an - Measured [facility] Body surface area 1.6 1.6 [facility] Body weight 54 kg 54 kg [facility] an - Measured [facility] Body height 170 cm 170 cm [facility] Mean blood 69 mm[Hg] 69 mm[Hg] [facility] Diastolic blood 51 mm[Hg] Below low normal 51 mm[Hg] [place] [facility] - pressure [facility] Systolic blood 105 mm[Hg] Normal (applies to 105 mm[Hg] [facility] - pressure non-numeric [facility] results) [facility] Respiratory rate 16 br/min Normal (applies to 16 br/min [facility] - non-numeric [facility] results) [facility] Peripheral Pulse 77 bpm Normal (applies to 77 bpm [place] [facility] - Rate non-numeric [facility] results) [facility] Body temperature 97.8 Normal (applies to 97.8 [degF] [facility] - [degF] non-numeric [facility] results) [facility] Peripheral Pulse 84 bpm Normal (applies to 84 bpm [place] [facility] - Rate non-numeric [facility] results) [facility] Diastolic blood 68 mm[Hg] Normal (applies to 68 mm[Hg] [place] [facility] - pressure non-numeric [facility] results) [facility] Systolic blood 121 mm[Hg] Normal (applies to 121 mm[Hg] [place] [facility] - pressure non-numeric [facility] results) [facility] Body height 170 cm 170 cm [facility] an [facility] Mean blood 82 mm[Hg] 82 mm[Hg] [facility] n - pressure [facility] Diastolic blood 69 mm[Hg] Normal (applies to 69 mm[Hg] [place] [facility] - pressure non-numeric [facility] results) [facility] Systolic blood 107 mm[Hg] Normal (applies to 107 mm[Hg] [facility] - pressure non-numeric [facility] results) [facility] Respiratory rate 18 br/min Normal (applies to 18 br/min [facility] - non-numeric [facility] results) [facility] Peripheral Pulse 79 bpm Normal (applies to 79 bpm [place] [facility] - Rate non-numeric [facility] results) [facility] Body temperature 98.3 98.3 [degF] [facility] [degF] [facility] Body height 170.000 cm 170.000 cm [facility] Body weight 54.000 kg 54.000 kg [facility] Body surface area 1.6 1.6 [facility] Body weight 54 kg 54 kg [facility] an - Measured [facility] Mean blood 80 mm[Hg] 80 mm[Hg] [facility] Diastolic blood 60 mm[Hg] Normal (applies to 60 mm[Hg] [place] [facility] - pressure non-numeric [facility] results) [facility] Systolic blood 121 mm[Hg] Normal (applies to 121 mm[Hg] [place] [facility] - pressure non-numeric [facility] results) [facility] Respiratory rate 18 br/min Normal (applies to 18 br/min [place] [facility] - non-numeric [facility] results) [facility] Peripheral Pulse 79 bpm Normal (applies to 79 bpm [place] [facility] - Rate non-numeric [facility] results) [facility] Body temperature 98 [degF] 98 [degF] [place] [facility] - - Temporal artery [facility] Body height 171.000 cm 171.000 cm [facility] Body weight 56.000 kg 56.000 kg [facility] Body surface area 1.63 1.63 [facility] Body weight 56 kg 56 kg [facility] an - Measured [facility] Body height 171 cm 171 cm [facility] Mean blood 88 mm[Hg] 88 mm[Hg] [place] [facility] - pressure [facility] Diastolic blood 63 mm[Hg] Normal (applies to 63 mm[Hg] [place] [facility] - pressure non-numeric [facility] results) [facility] Systolic blood 137 mm[Hg] Normal (applies to 137 mm[Hg] [place] [facility] - pressure non-numeric [facility] results) [facility] Respiratory rate 18 br/min Normal (applies to 18 br/min [facility] - non-numeric [facility] results) [facility] r Peripheral Pulse 91 bpm Normal (applies to 91 bpm [place] [facility] - Rate non-numeric [facility] results) [facility] Body temperature 98.5 98.5 [degF] [place] [facility] - - Temporal artery [degF] [facility] Body surface area 1.6 1.6 [facility] Body weight 55 kg 55 kg [facility] Body height 168 cm 168 cm [facility] Mean blood 80 mm[Hg] 80 mm[Hg] [place] [facility] - pressure [facility] Diastolic blood 59 mm[Hg] Below low normal 59 mm[Hg] [facility] - pressure [facility] Systolic blood 123 mm[Hg] Normal (applies to 123 mm[Hg] [place] [facility] - pressure non-numeric [facility] results) [facility] Respiratory rate 18 br/min Normal (applies to 18 br/min [facility] - non-numeric [facility] results) [facility] Peripheral Pulse 74 bpm Normal (applies to 74 bpm [place] [facility] - Rate non-numeric [facility] results) [facility] Body temperature 97.4 97.4 [degF] [place] [facility] - - Temporal artery [degF] [facility] Body height 168.000 cm 168.000 cm [facility] an - [facility] Body weight 55.000 kg 55.000 kg [facility] an - Measured [facility] Mean blood 73 mm[Hg] 73 mm[Hg] [place] [facility] - pressure [facility] Diastolic blood 61 mm[Hg] Normal (applies to 61 mm[Hg] [place] [facility] - pressure non-numeric [facility] results) [facility] Systolic blood 96 mm[Hg] Normal (applies to 96 mm[Hg] [place] [facility] - pressure non-numeric [facility] results) [facility] Peripheral Pulse 89 bpm Normal (applies to 89 bpm [place] [facility] - Rate non-numeric [facility] results) [facility] Body temperature 97.6 97.6 [degF] [place] [facility] - - Temporal artery [degF] [facility] Mean blood 73 mm[Hg] 73 mm[Hg] [place] [facility] - pressure [facility] Diastolic blood 59 mm[Hg] Below low normal 59 mm[Hg] [facility] - pressure [facility] Systolic blood 100 mm[Hg] Normal (applies to 100 mm[Hg] [place] [facility] - pressure non-numeric [facility] results) [facility] Peripheral Pulse 78 bpm Normal (applies to 78 bpm [place] [facility] - Rate non-numeric [facility] results) [facility] Body temperature 97.3 97.3 [degF] [facility] - - Temporal artery [degF] [facility] Body surface area 1.68 1.68 [facility] r Body weight 60 kg 60 kg [facility] an - Measured [facility] r Body height 169 cm 169 cm [facility] Mean blood 70 mm[Hg] 70 mm[Hg] [facility] Diastolic blood 58 mm[Hg] Below low normal 58 mm[Hg] [facility] Systolic blood 93 mm[Hg] Normal (applies to 93 mm[Hg] [place] [facility] - pressure non-numeric [facility] results) [facility] r Respiratory rate 20 br/min Normal (applies to 20 br/min [facility] results) [facility] Peripheral Pulse 74 bpm Normal (applies to 74 bpm [place] [facility] - Rate non-numeric [facility] results) [facility] r Body temperature 97.7 97.7 [degF] [facility] - - Temporal artery [degF] [facility] r Body height 169.000 cm 169.000 cm [facility] r Body weight 60.000 kg 60.000 kg [facility] an Measured [facility] r Body height 167 cm 167 cm [facility] r Mean blood 93 mm[Hg] 93 mm[Hg] [facility] r Diastolic blood 76 mm[Hg] Normal (applies to 76 mm[Hg] [facility] - pressure non-numeric [facility] results) [facility] r Systolic blood 127 mm[Hg] Normal (applies to 127 mm[Hg] [place] [facility] - pressure non-numeric [facility] results) [facility] r Respiratory rate 18 br/min Normal (applies to 18 br/min [place] [facility] - non-numeric [facility] results) [facility] Peripheral Pulse 96 bpm Normal (applies to 96 bpm [place] [facility] - Rate non-numeric [facility] results) [facility] Body temperature 98.1 98.1 [degF] [place] [facility] - - Temporal artery [degF] [facility] Body height 167.000 cm 167.000 cm [facility] Body weight 55.000 kg 55.000 kg [facility] an - Measured [facility] Body surface area 1.6 1.6 [facility] Body weight 55 kg 55 kg [facility] an - Measured [facility] Body height 158.000 cm 158.000 cm [facility] Body weight 49.000 kg 49.000 kg [facility] an - Measured [facility] Body surface area 1.47 1.47 [facility] Body weight 49 kg 49 kg [facility] an - Measured [facility] Body height 158 cm 158 cm [facility] Mean blood 87 mm[Hg] 87 mm[Hg] [place] [facility] - pressure [facility] Diastolic blood 71 mm[Hg] Normal (applies to 71 mm[Hg] [place] [facility] - pressure non-numeric [facility] results) [facility] Systolic blood 119 mm[Hg] Normal (applies to 119 mm[Hg] [place] [facility] - pressure non-numeric [facility] results) [facility] Respiratory rate 20 br/min Normal (applies to 20 br/min [place] [facility] - non-numeric [facility] results) [facility] Peripheral Pulse 78 bpm Normal (applies to 78 bpm [place] [facility] - Rate non-numeric [facility] results) [facility] Body temperature 98.2 98.2 [degF] [place] [facility] - - Temporal artery [degF] [facility] Patient Treatment Plan of Care Planned Activity Planned Date Details Description Data Source (s) Acetaminophen 300 MG / 10/05/2019 [place] [facility] - Codeine Phosphate 30 MG 10:51:00 PM EDT [facility] Oral Tablet Center amoxicillin 875 mg oral 10/05/2019 [place] [facility] - tablet 10:45:[address] [facility] Adderall 05/01/2019 [facility] - 01:48:00 AM EST [facility] Ambien 05/01/2019 [facility] - 01:47:00 AM EST [facility] albuterol [facility] free 90 03/26/2019 [facility] - mcg/inh inhalation 09:09:00 PM EST [facility] aerosol Center Naproxen 500 MG Oral 01/19/2019 [facility] - Tablet 11:25:[address] [facility] Ondansetron 4 MG 01/19/2019 [facility] - Disintegrating Oral 11:24:38 AM EST [facility] Sucralfate 1000 MG Oral 01/19/2019 [facility] - Tablet 11:24:[address] [facility] Diazepam 2 MG Oral Tablet 12/15/2018 [facility] - 09:52:[address] [facility]
--- OUTSIDE RECORDS SUMMARY | 2019-12-20 10:45 | XMS ---
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 [id number] 03/26/2019 06:04:00 PM EST [facility] [id number] [facility] Center Name Value Range Interpretation Description Data Source(s ) Supporting Code Document(s ) UA RBC 0-4 /HPF Normal (applies [place] to non-numeric [facility] - results) [facility] UA WBC 0-4 /HPF Normal (applies [place] to non-numeric [facility] - results) [facility] UA Squam 5-9 /HPF [place] Epithelial [facility] UA Bacteria Occasional [place] /HPF [facility] ID Date Data Source [id number] 03/26/2019 06:04:00 PM EST [facility] [id number] [facility] Center Name Value Range Interpretation Description Data Source(s ) Supporting Code Document(s ) UA Glucose Negative Normal (applies [place] (03/26/19 to non-numeric [facility] - 6:04 PM) results) [facility] UA Protein Negative Normal (applies [place] (03/26/19 to non-numeric [facility] - 6:04 PM) results) [facility] UA Bili Negative Normal (applies [place] (03/26/19 to non-numeric [facility] - 6:04 PM) results) [facility] UA Normal Normal (applies [place] Urobilinogen (03/26/19 to non-numeric [facility] - 6:04 PM) results) [facility] UA pH 6.5 Normal (applies [place] to non-numeric [facility] - results) [facility] UA Ketones Negative Normal (applies [place] (03/26/19 to non-numeric [facility] - 6:04 PM) results) [facility] UA Nitrite Negative Normal (applies [place] (03/26/19 to non-numeric [facility] - 6:04 PM) results) [facility] UA Blood Negative Normal (applies [place] (03/26/19 to non-numeric [facility] - 6:04 PM) results) [facility] UA Leuk Est Negative Normal (applies [place] (03/26/19 to non-numeric [facility] - 6:04 PM) results) [facility] UA Appear Cloudy [place] *ABN*(03/26 6:04 [facility] PM) [facility] UA Spec Grav Below low normal [facility] UA Color Yellow Normal (applies [place] (03/26/19 to non-numeric [facility] - 6:04 PM) results) [facility] ID Date Data Source [id number] 03/26/2019 06:04:00 PM EST [facility] [id number] [facility] Name Value Range Interpretation Description Data Source(s ) Supporting Code Document(s ) U beta Neg Normal (applies to [facility] jose miguel hCG Ql (03/26/19 non-[facility] 6:04 PM) results) Hospital Center ID Date Data Source [id number] 03/11/2019 08:03:00 PM EST [facility] [id number] [facility] Name Value Range Interpretation Description Data Source(s ) Supporting Code Document(s ) HIV Rapid Non-React Normal (applies to [facility] jose miguel gonzález non-[facility] (03/11/19 results) [facility] 8:03 PM) ID Date Data Source [id number] 03/11/2019 08:01:00 PM EST [facility] [id number] [facility] Name Value Range Interpretation Description Data Source(s ) Supporting Code Document(s ) Beta hCG Neg Normal (applies to [place] [facility] Ql (03/11/19 non-numeric - [facility] 8:01 PM) results) Hospital Center ID Date Data Source [id number] 03/11/2019 07:34:00 PM EST [facility] [id number] [facility] Name Value Range Interpretation Description Data Source(s ) Supporting Code Document(s ) UA RBC 0-4 /HPF Normal (applies [place] to non-numeric [facility] - results) [facility] UA Squam Occasional [place] Epithelial /HPF [facility] UA WBC 0-4 /HPF Normal (applies [place] to non-numeric [facility] - results) [facility] UA Bacteria Occasional [place] /HPF [facility] - [facility] ID Date Data Source [id number] 03/11/2019 07:34:00 PM EST [facility] [id number] [facility] Center Name Value Range Interpretation Description Data Source(s ) Supporting Code Document(s ) UA Glucose Negative Normal (applies [place] (03/11/19 to non-numeric [facility] - 7:34 PM) results) [facility] UA Protein 50 mg/dL [facility] UA Bili Negative Normal (applies [place] (03/11/19 to non-numeric [facility] - 7:34 PM) results) [facility] UA pH 6.0 Normal (applies [place] to non-numeric [facility] - results) [facility] UA Normal Normal (applies [place] Urobilinogen (03/11/19 to non-numeric [facility] - 7:34 PM) results) [facility] UA Ketones Negative Normal (applies [place] (03/11/19 to non-numeric [facility] - 7:34 PM) results) [facility] UA Nitrite Negative Normal (applies [place] (03/11/19 to non-numeric [facility] - 7:34 PM) results) [facility] UA Blood Negative Normal (applies [place] (03/11/19 to non-numeric [facility] - 7:34 PM) results) [facility] UA Appear Clear Normal (applies [place] (03/11/19 to non-numeric [facility] - 7:34 PM) results) [facility] UA Spec Grav 1.008 Normal (applies [place] to non-numeric [facility] - results) [facility] UA Leuk Est Negative Normal (applies [place] (03/11/19 to non-numeric [facility] - 7:34 PM) results) [facility] UA Color Light Normal (applies [place] Yellow to non-numeric [facility] - (03/11/19 results) [facility] 7:34 PM) Hospital Center ID Date Data Source [id number] 03/11/2019 07:32:00 PM EST [facility] [id number] [facility] Name Value Range Interpretation Description Data Source(s ) Supporting Code Document(s ) Troponin [facility] Result - [facility] ID Date Data Source [id number] 03/11/2019 07:32:00 PM EST [facility] [id number] [facility] Name Value Range Interpretation Code Description Data Mirna rce(s) Supporting Document(s ) EGFR Non [place] [facility] - AA [facility] EGFR AA [facility] ID Date Data Source [id number] 03/11/2019 07:32:00 PM EST [facility] [id number] [facility] Name Value Range Interpretation Description Data Source(s ) Supporting Code Document(s ) Neutro 54.9 % Below low normal [place] [facility] Percent - [facility] Lymph 34.3 % Normal (applies [place] [facility] Percent to non-numeric - [facility] results) [facility] Eos Percent 2.2 % Normal (applies [place] [facility] to non-numeric [facility] results) [facility] Baso Percent 0.8 % Normal (applies [place] [facility] to non-numeric [facility] results) [facility] What[facility] Percent 7.8 % Normal (applies [place] [facility] [place]uel to non-numeric - [place] results) [facility] Lymph 2.6 Normal (applies [place] [facility] Absolute x10(3)/mc to non-numeric - [place] L results) [facility] What[facility] 0.6 Normal (applies [place] [facility] Absolute [...] results) Hospital [facility] ID Date Data Source [id number] 03/11/2019 07:32:00 PM EST [facility] [id number] [facility] Name Value Range Interpretation Description Data Source(s ) Supporting Code Document(s ) Troponin Neg Normal (applies [place] [facility] [place] Prelim (03/11/19 to non-numeric - [place] 7:32 PM) results) Hospital [facility] ID Date Data Source [id number] 03/11/2019 07:32:00 PM EST [facility] [id number] [facility] Name Value Range Interpretation Description Data Source(s ) Supporting Code Document(s ) Lactic 1.0 Normal (applies to [place] [facility] Acid Lvl mmol/L non-numeric - [place] results) Hospital [facility] ID Date Data Source [id number] 03/11/2019 07:32:00 PM EST [facility] [id number] [facility] Name Value Range Interpretation Description Data Source(s ) Supporting Code Document(s ) WBC 7.7 Normal (applies to [place] [facility] x10(3)/mc non-numeric - [place] L results) [facility] RBC 4.90 Normal (applies to [place] [facility] [place] x10(6)/mc non-numeric - [place] L results) [facility] Hgb 14.4 g/dL Normal (applies to [facility] non-[facility] results) [facility] MCV 88.6 fL Normal (applies to [facility] non-[facility] results) [facility] Hct 43.4 % Normal (applies to [facility] non-[facility] results) [facility] RDW 14.3 % Normal (applies to [facility] non-[facility] results) [facility] MCH 29.5 pg Normal (applies to [facility] jose miguel non-[facility] results) [facility] MCHC 33.3 g/dL Normal (applies to [facility] non-[facility] results) [facility] MPV 9.2 fL Normal (applies to [facility] results) [facility] Platelet 281 Normal (applies to [facility] x10(3)/mc non-[facility] L results) Hospital [facility] ID Date Data Source [id number] 03/11/2019 07:32:00 PM EST [facility] [id number] [facility] Name Value Range Interpretation Code Description Data Mirna rce(s) Supporting Document(s ) PT 11.2 s Normal (applies to [place] [facility] - non-numeric results) [facility] INR 1.0 Normal (applies to [facility] - non-numeric results) [facility] ID Date Data Source [id number] 03/11/2019 07:32:00 PM EST [facility] [id number] [facility] Name Value Range Interpretation Description Data Source(s ) Supporting Code Document(s ) Glucose Lvl 87 mg/dL Normal (applies [place] [facility] [place] to non[facility] results) [facility] BUN 10 mg/dL Normal (applies [place] [facility] to [facility] results) [facility] Sodium Lvl 139 Normal (applies [place] [facility] mmol/L to non[facility] results) [facility] Potassium Lvl 4.4 Normal (applies [place] [facility] mmol/L to non[facility] results) [facility] Creatinine 0.60 Normal (applies [place] [facility] mg/dL to non[facility] results) [facility] Chloride 100 Normal (applies [place] [facility] mmol/L to non-[facility] results) [facility] AGPK 11.4 Normal (applies [place] [facility] [place] to non[facility] results) [facility] CO2 32 Above high normal [place] [facility]rent mmol/L - [facility] Calcium Lvl 9.7 Normal (applies [place] [facility] [place] mg/dL to non[facility] results) [facility] Total Protein 8.3 g/dL Above high normal [facility] Albumin Lvl 4.6 g/dL Normal (applies [place] [facility] brent to non[facility] results) [facility] Alk Phos 74 Normal (applies [place] [facility] [place] unit/L to [facility] results) [facility] ALT 30 Normal (applies [place] [facility] unit/L to non[facility] results) [facility] AST 45 Above high normal [place] [facility] unit/L - [facility] Bili Total 0.30 Normal (applies [place] [facility] mg/dL to [facility] results) [facility] ID Date Data Source [id number] 01/19/2019 10:45:00 AM EST [facility] [id number] [facility] Name Value Range Interpretation Code Description Data Mirna rce(s) Supporting Document(s ) RADRPT <table [place] [facility] border="1" - [facility] width="95%"><col Hospital Cent er group><col width="25%"></co l><col width="25%"></co l><col width="25%"></co l><col width="25%"></co l></colgroup><tb janina><tr><td>Exam Date Time</td><td>Pro cedure</td><td>P erforming Provider</td><td >Status</td></tr ><tr><td> 9 11:00 AM</td><td>US Transvaginal Non-OB</td><td>A LBERT RDMS, DONATA; </td><td>Auth (Verified)</td>< /tr></tbody></ta ble><paragraph>N otes:</paragraph ><paragraph>(US Transvaginal Non-OB) Reason For Exam: Pain, Abdominal,</para graph><paragraph ><content>Report </content>
< content ID="[id number]">EXAMINATI ON: Pelvic ultrasound. Endovaginal .

Delfino rison [...] ELLE </content></para graph> ID Date Data Source [id number] 01/19/2019 07:57:00 AM EST [facility] [id number] [facility] Name Value Range Interpretation Code Description Data Mirna rce(s) Supporting Document(s ) EGFR AA [facility] EGFR Non [facility] - AA [facility] ID Date Data Source [id number] 01/19/2019 07:57:00 AM EST [facility] [id number] [facility] Name Value Range Interpretation Description Data Source(s ) Supporting Code Document(s ) Lymph Man 14.0 % Below low normal [facility] Segs Man 79.0 % Above high normal [facility] Band Man 4.0 % Normal (applies [place] [facility] to [facility] results) [facility] Eos Man 0.0 % Normal (applies [place] [facility] to [facility] results) [facility] Monocyte 2.0 % Normal (applies [place] [facility] Man to [facility] results) [facility] Basophil 0.0 % Normal (applies [place] [facility] Man to [facility] results) [facility] Atyp Lymph 1.0 % Above high normal [facility] Plts Morph Plt Normal (applies [place] [facility] Adequate to [facility] (01/19/19 results) [facility] 7:57 AM) RBC Morph Normal Normal (applies [place] [facility] (01/19/19 to non-numeric [facility] 7:57 AM) results) Hospital [facility] ID Date Data Source [id number] 01/19/2019 07:57:00 AM EST [facility] [id number] [facility] Name Value Range Interpretation Description Data Source(s ) Supporting Code Document(s ) Lymph 13.3 % Below low normal [place] [facility] Percent - [facility] Neutro 84.0 % Above high normal [place] [facility]rent Percent - [facility] Neutro 7.7 Normal (applies [place] [facility] [place] Absolute x10(3)/mc to non-numeric - [facility] L results) [facility] Baso Percent 0.6 % Normal (applies [place] [facility] miguel to non-numeric [facility] results) [facility] Eos Percent 0.1 % Normal (applies [place] [facility] [place] to non-numeric - [facility] results) [facility] Percent 2.0 % Normal (applies [place] [facility]ose miguel to non-numeric [facility] results) [facility] Lymph 1.2 Normal (applies [place] [facility] [place] Absolute x10(3)/mc to non-numeric - [facility] L results) [facility] Eos Absolute 0.0 Normal (applies [place] [facility]uel x10(3)/mc to non-numeric - [facility] L results) [facility] Whatcom 0.2 Normal (applies [place] [facility] Absolute x10(3)/mc to non-numeric - [facility] L results) [facility] Baso 0.1 Normal (applies [place] [facility] [place] Absolute x10(3)/mc to non-numeric - [facility] L results) Hospital [facility] ID Date Data Source [id number] 01/19/2019 07:57:00 AM EST [facility] [id number] [facility] Name Value Range Interpretation Code Description Data Mirna rce(s) Supporting Document(s ) PT 12.2 s Normal (applies to [place] [facility] - non-numeric results) [facility] INR 1.0 Normal (applies to [place] [facility] miguel - non-numeric results) [facility] ID Date Data Source [id number] 01/19/2019 07:57:00 AM EST [facility] [id number] [facility] Name Value Range Interpretation Description Data Source(s ) Supporting Code Document(s ) Lipase Lvl 36 unit/L Normal (applies to [facility] non-numeric [facility] results) Hospital [facility] ID Date Data Source [id number] 01/19/2019 07:57:00 AM EST [facility] [id number] [facility] Name Value Range Interpretation Description Data Source(s ) Supporting Code Document(s ) Bili 0.40 Above high normal [facility] brent Direct mg/dL - [facility] ID Date Data Source [id number] 01/19/2019 07:57:00 AM EST [facility] [id number] [facility] Name Value Range Interpretation Description Data Source(s ) Supporting Code Document(s ) Sodium Lvl 140 Normal (applies [place] [facility] mmol/L to non-numeric [facility] results) [facility] BUN 14 mg/dL Normal (applies [place] [facility] to [facility] results[facility] Glucose Lvl 129 Above high normal [facility] mg/dL - [facility] Creatinine 0.51 Below low normal [facility] brent mg/dL - [facility] CO2 28 Normal (applies [place] [facility] mmol/L to non-numeric [facility] results) [facility] Potassium Lvl 4.1 Normal (applies [place] [facility] mmol/L to non-numeric [facility] results) [facility] Chloride 100 Normal (applies [place] [facility] mmol/L to non-numeric [facility] results) [facility] AGPK 16.1 Normal (applies [place] [facility] to non-numeric [facility] results) [facility] Total Protein 8.7 g/dL Above high normal [facility] Albumin Lvl 4.8 g/dL Normal (applies [place] [facility] to non-[facility] results) [facility] Calcium Lvl 10.2 Normal (applies [place] [facility] mg/dL to non-[facility] results) [facility] Alk Phos 81 Normal (applies [place] [facility] unit/L to non-[facility] results) [facility] AST 36 Normal (applies [place] [facility] unit/L to non-[facility] results) [facility] Bili Total 0.60 Normal (applies [place] [facility] an mg/dL to non-[facility] results) [facility] ALT 17 Normal (applies [place] [facility] n unit/L to non-[facility] results) Hospital Center ID Date Data Source [id number] 01/19/2019 07:57:00 AM EST [facility] [id number] Hospital Center Name Value Range Interpretation Description Data Source(s ) Supporting Code Document(s ) WBC 9.1 Normal (applies to [place] [facility] jose miguel x10(3)/ non-[facility] - [facility] L results) Hospital [facility] RBC 4.77 Normal (applies to [place] [facility] jose miguel x10(6)/ non-[facility] - [facility] L results) Hospital [facility] MCV 85.8 fL Normal (applies to [place] [facility] results) Hospital [facility] Hgb 14.0 g/dL Normal (applies to [place] [facility] non-[facility] results) Hospital [facility] Hct 40.9 % Normal (applies to [place] [facility] j[facility] miguel non-[facility] results) Hospital [facility] MCH 29.3 pg Normal (applies to [place] [facility] miguel non-[facility] results) [facility] Platelet 298 Normal (applies to [place] Presbyte jose miguel x10(3)/ non-[facility] - [facility] L results) Hospital [facility] MPV 9.7 fL Normal (applies to [place] [facility] RDW 14.1 % Normal (applies to [facility] non-[facility] results) Hospital Center MCHC 34.2 g/dL Normal (applies to [place] [facility] jose miguel non-[facility] results) Hospital Center ID Date Data Source [id number] 01/19/2019 07:57:00 AM EST [facility] [id number] Hospital Center Name Value Range Interpretation Description Data Source(s ) Supporting Code Document(s ) Amylase Lvl 72 unit/L Normal (applies to [facility] results) Hospital Center ID Date Data Source [id number] 12/15/2018 07:52:00 PM EDT [facility] [id number] Hospital Center Name Value Range Interpretation Description Data Source(s ) Supporting Code Document(s ) UA Glucose Negative Normal (applies [place] (12/15/18 to non-numeric [facility] - 7:52 PM) results) [facility] UA Bili Negative Normal (applies [place] (12/15/18 to non-numeric [facility] - 7:52 PM) results) [facility] UA Protein Negative Normal (applies [place] (12/15/18 to non-numeric [facility] - 7:52 PM) results) [facility] UA Normal Normal (applies [place] Urobilinogen (12/15/18 to non-numeric [facility] - 7:52 PM) results) [facility] UA Blood Negative Normal (applies [place] (12/15/18 to non-numeric [facility] - 7:52 PM) results) [facility] UA Ketones Negative Normal (applies [place] (12/15/18 to non-numeric [facility] - 7:52 PM) results) [facility] UA pH 6.0 Normal (applies [place] to non-numeric [facility] - results) [facility] UA Nitrite Negative Normal (applies [place] (12/15/18 to non-numeric [facility] - 7:52 PM) results) [facility] UA Leuk Est Negative Normal (applies [place] (12/15/18 to non-numeric [facility] - 7:52 PM) results) [facility] UA Appear Clear Normal (applies [place] (12/15/18 to non-numeric [facility] - 7:52 PM) results) [facility] UA Spec Grav Below low normal [place] [facility] UA Color Light Normal (applies [place] Yellow to non-numeric [facility] ([facility]/15/18 results) [facility] 7:52 PM) [facility] Center ID Date Data Source [id number] 12/15/2018 07:23:00 PM EDT [facility] [id number] [facility] Name Value Range Interpretation Description Data Source(s ) Supporting Code Document(s ) Beta hCG 2.92 [facility] Quant mIU/mL - [facility] ID Date Data Source [id number] 12/15/2018 05:25:00 PM EDT [facility] [id number] [facility] Name Value Range Interpretation Code Description Data Mirna rce(s) Supporting Document(s ) RADRPT <table [facility] border="1" - [facility] width="95%"><col Hospital Cent er group><col width="25%"></co l><col width="25%"></co l><col width="25%"></co l><col width="25%"></co l></colgroup><tb janina><tr><td>Exam Date Time</td><td>Pro cedure</td><td>P erforming Provider</td><td >Status</td></tr ><tr><td>12/15/18 6:00 PM</td><td>US 1st Trimester</td><t d>CHASIDY BRITT; </td><td>Auth (Verified)</td>< /tr></tbody></ta ble><paragraph>N otes:</paragraph ><paragraph>(US 1st Trimester) Reason For Exam: Hemorrhage Early Preg</paragraph> <paragraph><cont ent>Report</cont ent>
<conten t ID="[id number]">First Trimester Pelvic Duplex Doppler Ultrasound.

CLINICAL HISTORY: [...] RIRI </content></para graph> ID Date Data Source [id number] 11/17/2018 10:20:00 PM EDT [facility] [id number] [facility] Center Name Value Range Interpretation Description Data Source(s ) Supporting Code Document(s ) U beta Pos [place] [facility] hCG Ql *ABN*(11/17 - 10:20 Hospital Center PM) ID Date Data Source [id number] 10/29/2018 01:17:00 PM EDT [facility] [id number] [facility] Name Value Range Interpretation Code Description Data Mirna rce(s) Supporting Document(s ) EGFR Non [facility] - AA [facility] EGFR AA [facility] ID Date Data Source [id number] 10/29/2018 01:17:00 PM EDT [facility] [id number] [facility] Name Value Range Interpretation Description Data Source(s ) Supporting Code Document(s ) Segs Man 81.0 % Above high [place] normal [facility] Band Man 1.0 % Normal (applies [place] to non-numeric [facility] - results) [facility] Monocyte Man 2.0 % Normal (applies [place] to non-numeric [facility] - results) [facility] Lymph Man 16.0 % Below low normal [facility] Basophil Man 0.0 % Normal (applies [place] to non-numeric [facility] - results) [facility] Eos Man 0.0 % Normal (applies [place] to non-numeric [facility] - results) [facility] Plts Morph Plt Adequate Normal (applies [place] (10/29/18 to non-numeric [facility] - 1:17 PM) results) [facility] RBC Morph Abnormal Normal (applies [place] (10/29/18 to non-numeric [facility] - 1:17 PM) results) [facility] Anisocyte 1+ (10/29/18 Normal (applies [place] 1:17 PM) to non-numeric [facility] - results) [facility] Ovalocyte Occasional Normal (applies [place] (10/29/18 to non-numeric [facility] - 1:17 PM) results) [facility] ID Date Data Source [id number] 10/29/2018 01:17:00 PM EDT [facility] [id number] Hospital Center Name Value Range Interpretation Description Data Source(s ) Supporting Code Document(s ) Neutro 83.4 % Above high normal [place] [facility] Percent - [facility] Center Lymph 13.7 % Below low normal [place] [facility] Percent - [facility] Whatcom Percent 2.4 % Normal (applies [place] [facility] jose miguel to non-numeric - [facility] results) Hospital Center Baso Percent 0.4 % Normal (applies [place] [facility] jose miguel to non-[facility] results) Hospital Center Eos Percent 0.1 % Normal (applies [place] [facility] to non-numeric [facility] results) Hospital Center Neutro 9.4 Above high normal [place] [facility] Absolute x10(3)/mc - [facility] Eos Absolute 0.0 Normal (applies [place] [facility] jose miguel x10(3)/mc to non-numeric [facility] L results) Hospital Center Whatcom 0.3 Normal (applies [place] Pres[facility]ia n Absolute x10(3)/mc to non-numeric [facility] L results) Hospital [facility] Lymph 1.5 Normal (applies [place] [facility] n Absolute x10(3)/mc to non-numeric - [facility] L results) [facility] Baso 0.0 Normal (applies [place] [facility] n Absolute x10(3)/mc to non-numeric - [facility] L results) Hospital Center ID Date Data Source [id number] 10/29/2018 01:17:00 PM EDT [facility] [id number] Hospital Center Name Value Range Interpretation Description Data Source(s ) Supporting Code Document(s ) Beta hCG Neg Normal (applies to [place] [facility] j[facility] miguel Ql (10/29/18 non-numeric - [facility] 1:17 PM) results) Hospital Center ID Date Data Source [id number] 10/29/2018 01:17:00 PM EDT [facility] [id number] Hospital Center Name Value Range Interpretation Code Description Data Mirna rce(s) Supporting Document(s ) PT 11.9 s Normal (applies to [place] [facility] jose miguel - non-numeric results) [facility] INR 1.0 Normal (applies to [facility] jose miguel - non-numeric results) [facility] ID Date Data Source [id number] 10/29/2018 01:17:00 PM EDT [facility] [id number] Hospital Center Name Value Range Interpretation Description Data Source(s ) Supporting Code Document(s ) Lipase Lvl 59 unit/L Normal (applies to [facility] erian non-numeric [facility] results) Hospital Center ID Date Data Source [id number] 10/29/2018 01:17:00 PM EDT [facility] [id number] Hospital Center Name Value Range Interpretation Description Data Source(s ) Supporting Code Document(s ) Bili 0.20 Normal (applies to [facility] jose miguel Direct mg/dL non-[facility] results) Hospital Center ID Date Data Source [id number] 10/29/2018 01:17:00 PM EDT [facility] [id number] [facility] [place] Name Value Range Interpretation Description Data Source(s ) Supporting Code Document(s ) BUN 14 mg/dL Normal (applies [place] [facility] n to non-[facility] results) Hospital Center Glucose Lvl 112 Above high normal [facility] mg/dL - [facility] Sodium Lvl 143 Normal (applies [place] [facility] an mmol/L to non-numeric [facility] results) Hospital Center Creatinine 0.65 Normal (applies [place] [facility] an mg/dL to non-[facility] results) Hospital Center Potassium Lvl 3.7 Normal (applies [place] Presbyt erian mmol/L to non-numeric [facility] results) Hospital Center AGPK 13.7 Normal (applies [place] [facility] n to non-numeric [facility] results) Hospital Center Chloride 102 Normal (applies [place] [facility] n mmol/L to non-numeric [facility] results) Hospital Center Calcium Lvl 9.9 Normal (applies [place] [facility] mg/[facility] results) [facility] CO2 31 Above high normal [place] [facility] mmol/L - [facility] [place] AST 34 Normal (applies [place] [facility] n unit/L to [facility] results) [facility] Total Protein 8.0 g/dL Normal (applies [place] Presbyt erian to [facility] results) [facility] ALT 36 Normal (applies [place] [facility] n unit/L to [facility] results) Hospital Center Albumin Lvl 4.5 g/dL Normal (applies [place] [facility] to [facility] results) Hospital Center Bili Total 0.30 Normal (applies [place] [facility] an mg/dL to [facility] results) [facility] Alk Phos 77 Normal (applies [place] Prest[place] n unit/L to [facility] results) Hospital Center ID Date Data Source [id number] 10/29/2018 01:17:00 PM EDT [facility] byterian - [facility] [id number] Hospital Center Name Value Range Interpretation Description Data Source(s ) Supporting Code Document(s ) WBC 11.2 Above high normal [place] [facility] x10(3)/ - [facility] RBC 4.79 Normal (applies to [place] Pres[facility] jose miguel x10(6)/[facility] L results) Hospital Center Hgb 13.9 g/dL Normal (applies to [place] [facility] jose miguel [facility] results) Hospital [facility] MCV 85.6 fL Normal ([facility] [place] [facility] results) Hospital [facility] Hct 41.0 % Normal ([facility] [place] [facility] MCHC 33.8 g/dL Normal (applies to [facility] RDW 14.5 % Normal ([facility] [place] [facility] MCH 29.0 pg Normal (applies to [place] [facility] non[facility] results) Hospital Center MPV 10.0 fL Normal ([facility] Hospital Center Platelet 265 Normal (applies to [facility] x10(3)/[facility] results[facility] Hospital Center ID Date Data Source [id number] 10/29/2018 01:17:00 PM EDT [facility] [id number] Hospital Center Name Value Range Interpretation Description Data Source(s ) Supporting Code Document(s ) Amylase Lvl 81 unit/L Normal (applies to [facility] results) Hospital [facility] Procedure Social History Code Duration Value Status Description Data Source(s ) Smoking 05/01/2019 Ex-smoker completed Ex-smoker (finding) [facility] - 01:59:41 AM EST (finding) [facility] Smoking 05/01/2019 Ex-smoker completed Ex-smoker (finding) [facility] - 01:59:41 AM EST (finding) [facility] Vital Signs ID Date Data Source UNK Name Value Range Interpretation Code Description Data Source(s) Body temperature 98.5 Normal (applies to 98.5 [degF] [facility] - [degF] [facility] results) [facility] Mean blood 75 mm[Hg] 75 mm[Hg] [facility] n - pressure [facility] Diastolic blood 64 mm[Hg] Normal (applies to 64 mm[Hg] N [facility] results) [facility] Systolic blood 96 mm[Hg] Normal (applies to 96 mm[Hg] [facility] - pressure [facility] results) [facility] Respiratory rate 18 br/min Normal (applies to 18 br/min [facility] - non-numeric [facility] results) [facility] Peripheral Pulse 70 bpm Normal (applies to 70 bpm [facility] results) [facility] Body height 169.000 cm 169.000 cm [facility] Body weight 62.000 kg 62.000 kg [facility] an - Measured [facility] Body surface area 1.71 1.71 [email or web address]] Body weight 62 kg 62 kg [facility] an - Measured [facility] Body height 169 cm 169 cm [facility] Mean blood 81 mm[Hg] 81 mm[Hg] [place] [facility] - pressure [facility] Diastolic blood 67 mm[Hg] Normal (applies to 67 mm[Hg] N [place] [facility] - pressure non-numeric [facility] results) [facility] Systolic blood 108 mm[Hg] Normal (applies to 108 mm[Hg] [facility] - pressure non-numeric [facility] results) [facility] Respiratory rate 18 br/min Normal (applies to 18 br/min [facility] non-numeric [facility] results) [facility] Peripheral Pulse 76 bpm Normal (applies to 76 bpm [place] Prest[facility]ian - Rate non-numeric [facility] results) [facility] Body temperature 99.0 Normal (applies to 99.0 [degF] [facility] - [degF] non-numeric [facility] results) [facility] Mean blood 71 mm[Hg] 71 mm[Hg] [facility] - pressure by [facility] Noninvasive Center Oxygen saturation 99 % 94-100 % Normal (applies to 99 % [facility] - in Blood non-numeric [facility] by results) Center Pulse oximetry Heart rate 70 bpm 60-100 bpm Normal (applies to 70 bpm [facility] - non-numeric [facility] results) Center Diastolic blood 55 mm[Hg] 60-90 mmHg 55 mm[Hg] [facility] Systolic blood 103 mm[Hg] 90-130 Normal (applies to 103 mm[Hg] [facility] - pressure mmHg non-numeric [facility] results) Center Oxygen saturation 100 % 94-100 % Normal (applies to 100 % [facility] - in Blood non-numeric [facility] Postductal by results) Center Pulse oximetry Diastolic blood 77 mm[Hg] 60-90 mmHg Normal (applies to 77 mm[Hg] [facility] - pressure non-numeric [facility] results) Center Systolic blood 116 mm[Hg] 90-130 Normal (applies to 116 mm[Hg] [facility] - pressure mmHg non-numeric [facility] results) Center Heart rate 76 bpm 60-100 bpm Normal (applies to 76 bpm [facility] - non-numeric [facility] results) Center Body mass index 18.75 18.75 kg/m2 [facility] - (BMI) [Ratio] kg/m2 [facility] Body weight 54.[address] [facility] h - Measured [facility] Body height [address] [facility] h - [facility] [place] Body mass index 18.75 18.75 kg/m2 [facility] - (BMI) [Ratio] kg/m2 [facility] Center Oxygen saturation 97 % 94-100 % Normal (applies to 97 % [facility] - in Blood non-numeric [facility] Postductal by results) Center Pulse oximetry Oxygen therapy [facility] alth - [Minimum Data [facility] ital Set] Center Diastolic blood 49 mm[Hg] 60-90 mmHg 49 mm[Hg] [facility] - [facility] Systolic blood 107 mm[Hg] 90-130 Normal (applies to 107 mm[Hg] [facility] - pressure mmHg non-numeric [facility] results) Center Respiratory rate 18 br/min 14-20 Normal (applies to 18 br/min [facility] - br/min non-numeric [facility] results) Center Heart rate 77 bpm 60-100 bpm Normal (applies to 77 bpm [facility] - non-numeric [facility] results) Center Oral temperature 98.9 96.4-99.1 Normal (applies to 98.9 [degF] [facility] - [degF] DegF non-numeric [facility] results) Center Oral temperature 98.7 96.4-99.1 Normal (applies to 98.7 [degF] [facility] - [degF] DegF non-numeric [facility] results) Center Mean blood 87 mm[Hg] 87 mm[Hg] [facility] - pressure by [facility] Noninvasive Center Respiratory rate 17 br/min 14-20 Normal (applies to 17 br/min [facility] - br/min non-numeric [facility] results) Center Oxygen therapy [facility] - [Minimum Data [facility] Set] Center Oxygen saturation 98 % 94-100 % Normal (applies to 98 % [facility] Health - in Blood non-numeric [facility] Postductal by results) Center Pulse oximetry Diastolic blood 75 mm[Hg] 60-90 mmHg Normal (applies to 75 mm[Hg] [facility] pressure non-numeric [facility] results) Center Systolic blood 111 mm[Hg] 90-130 Normal (applies to 111 mm[Hg] [facility] - pressure mmHg non-numeric [facility] results) Center Heart rate 79 bpm 60-100 bpm Normal (applies to 79 bpm [facility] - non-numeric [facility] results) Center Body mass index 19.97 19.97 kg/m2 [facility] [employer] - (BMI) [Ratio] kg/m2 [facility] [place] Body weight 57.[address] [facility] h - Measured [facility] [place] Body height [address] [facility] h - [facility] [place] Body mass index 19.97 19.97 kg/m2 [facility] - (BMI) [Ratio] kg/m2 [facility] Center Oxygen saturation 96 % 94-100 % Normal (applies to 96 % [facility] Health - in Blood non-numeric [facility] Postductal by results) Center Pulse oximetry [facility]xygen therapy [facility] - [Minimum Data [facility] Set] Center Diastolic blood 71 mm[Hg] 60-90 mmHg Normal (applies to 71 mm[Hg] [facility] - pressure non-numeric [facility] results) Center Systolic blood 109 mm[Hg] 90-130 Normal (applies to 109 mm[Hg] [facility] - pressure mmHg non-numeric [facility] results) Center Respiratory rate 18 br/min 14-20 Normal (applies to 18 br/min [facility] - br/min non-numeric [facility] results) Center Heart rate 80 bpm 60-100 bpm Normal (applies to 80 bpm [facility] - non-numeric [facility] results) Center Oral temperature 98.8 96.4-99.1 Normal (applies to 98.8 [degF] [facility] - [degF] DegF non-numeric [facility] results) [place] Mean blood 76 mm[Hg] 76 mm[Hg] [facility] - pressure [facility] Diastolic blood 61 mm[Hg] Normal (applies to 61 mm[Hg] N [facility] - pressure non-numeric [facility] results) [facility] Systolic blood 106 mm[Hg] Normal (applies to 106 mm[Hg] [place] [facility] - pressure non-numeric [facility] results) [facility] Respiratory rate 20 br/min Normal (applies to 20 br/min [place] [facility] - non-numeric [facility] results) [facility] Peripheral Pulse 81 bpm Normal (applies to 81 bpm [place] [facility] - Rate non-numeric [facility] results) [facility] Body temperature 97.8 97.8 [degF] [facility] byterian - - Temporal artery [degF] [facility] Body height 170.000 cm 170.000 cm [facility] Body weight 54.000 kg 54.000 kg [facility] an - Measured [facility] Body surface area 1.6 1.6 [facility] [[email or web address]] Body weight 54 kg 54 kg [facility] an - Measured [facility] Body height 170 cm 170 cm [facility] Mean blood 69 mm[Hg] 69 mm[Hg] [facility] n - pressure [facility] Diastolic blood 51 mm[Hg] Below low normal 51 mm[Hg] [place] [facility] - pressure [facility] [facility] Sy[facility]olic blood 105 mm[Hg] Normal (applies to 105 mm[Hg] [facility] - pressure non-numeric [facility] results) [facility] Respiratory rate 16 br/min Normal (applies to 16 br/min [facility] - non-numeric [facility] results) [facility] Peripheral Pulse 77 bpm Normal (applies to 77 bpm [facility] - Rate non-numeric [facility] results) [facility] Body temperature 97.8 Normal (applies to 97.8 [degF] [facility] - [degF] non-numeric [facility] results) [facility] Peripheral Pulse 84 bpm Normal (applies to 84 bpm [facility] [facility] - Rate non-numeric [facility] results) [facility] Diastolic blood 68 mm[Hg] Normal (applies to 68 mm[Hg] [place] [facility] [place] non-numeric [facility] results) [facility] Systolic blood 121 mm[Hg] Normal (applies to 121 mm[Hg] [place] [facility] - pressure non-numeric [facility] results) [facility] Body height 170 cm 170 cm [facility] an [facility] Mean blood 82 mm[Hg] 82 mm[Hg] [facility] n - pressure [facility] Diastolic blood 69 mm[Hg] Normal (applies to 69 mm[Hg] [place] [facility] [place] pressure non-numeric [facility] results) [facility] Systolic blood 107 mm[Hg] Normal (applies to 107 mm[Hg] [facility] - pressure non-numeric [facility] results) [facility] Respiratory rate 18 br/min Normal (applies to 18 br/min [facility] - non-numeric [facility] results) [facility] Peripheral Pulse 79 bpm Normal (applies to 79 bpm [facility] [facility] - Rate non-numeric [facility] results) [facility] Body temperature 98.3 98.3 [degF] [facility] - Temporal artery [degF] [facility] Body height 170.000 cm 170.000 cm [facility] Body weight 54.000 kg 54.000 kg [facility] Body surface area 1.6 1.6 [facility] [email or web address]] Body weight 54 kg 54 kg [facility] an - Measured [facility] Mean blood 80 mm[Hg] 80 mm[Hg] [facility] Diastolic blood 60 mm[Hg] Normal (applies to 60 mm[Hg] [place] [facility] [place] pressure non-numeric [facility] results) [facility] Systolic blood 121 mm[Hg] Normal (applies to 121 mm[Hg] [facility] - pressure non-numeric [facility] results) [facility] Respiratory rate 18 br/min Normal (applies to 18 br/min [facility] - non-numeric [facility] results) [facility] Peripheral Pulse 79 bpm Normal (applies to 79 bpm [facility] - Rate non-numeric [facility] results) [facility] Body temperature 98 [degF] 98 [degF] [place] [facility] - - Temporal artery [facility] Body height 171.000 cm 171.000 cm [facility] Body weight 56.000 kg 56.000 kg [facility] - Measured [facility] Body surface area 1.63 1.63 [facility] Body weight 56 kg 56 kg [facility] an - Measured [facility] Body height 171 cm 171 cm [facility] Mean blood 88 mm[Hg] 88 mm[Hg] [facility] [facility] - pressure [facility] Diastolic blood 63 mm[Hg] Normal (applies to 63 mm[Hg] [place] [facility] [place] pressure non-numeric [facility] results) [facility] Systolic blood 137 mm[Hg] Normal (applies to 137 mm[Hg] [facility] - pressure non-numeric [facility] results) [facility] Respiratory rate 18 br/min Normal (applies to 18 br/min [facility] - non-numeric [facility] results) [facility] r Peripheral Pulse 91 bpm Normal (applies to 91 bpm [facility] - Rate non-numeric [facility] results) [facility] Body temperature 98.5 98.5 [degF] [place] [facility] - - Temporal artery [degF] [facility] Body surface area 1.6 1.6 [facility] [[email or web address] Body weight 55 kg 55 kg [facility] - Measured [facility] Body height 168 cm 168 cm [facility] Mean blood 80 mm[Hg] 80 mm[Hg] [facility] [facility] - pressure [facility] Diastolic blood 59 mm[Hg] Below low normal 59 mm[Hg] [facility] - pressure [facility] Systolic blood 123 mm[Hg] Normal (applies to 123 mm[Hg] [place] [facility] - pressure non-numeric [facility] results) [facility] Respiratory rate 18 br/min Normal (applies to 18 br/min [facility] [facility] - non-numeric [facility] results) [facility] Peripheral Pulse 74 bpm Normal (applies to 74 bpm [place] [facility] - Rate non-numeric [facility] results) [facility] Body temperature 97.4 97.4 [degF] [place] [facility] - - Temporal artery [degF] [facility] Body height 168.000 cm 168.000 cm [facility] an - [facility] Body weight 55.000 kg 55.000 kg [facility] an - Measured [facility] Mean blood 73 mm[Hg] 73 mm[Hg] [place] [facility] - pressure [facility] Diastolic blood 61 mm[Hg] Normal (applies to 61 mm[Hg] [place] [facility] - pressure non-numeric [facility] results) [facility] Systolic blood 96 mm[Hg] Normal (applies to 96 mm[Hg] [facility] - pressure non-numeric [facility] results) [facility] Peripheral Pulse 89 bpm Normal (applies to 89 bpm [facility] [facility] - Rate non-numeric [facility] results) [facility] Body temperature 97.6 97.6 [degF] [place] [facility] - - Temporal artery [degF] [facility] Mean blood 73 mm[Hg] 73 mm[Hg] [place] [facility] - pressure [facility] Diastolic blood 59 mm[Hg] Below low normal 59 mm[Hg] [facility] - pressure [facility] Systolic blood 100 mm[Hg] Normal (applies to 100 mm[Hg] [place] [facility] - pressure non-numeric [facility] results) [facility] Peripheral Pulse 78 bpm Normal (applies to 78 bpm [place] [facility] - Rate non-numeric [facility] results) [facility] Body temperature 97.3 97.3 [degF] [facility] - - Temporal artery [degF] [facility] Body surface area 1.68 1.68 [facility] r Body weight 60 kg 60 kg [facility] an - Measured [facility] r Body height 169 cm 169 cm [facility] Mean blood 70 mm[Hg] 70 mm[Hg] [facility] - pressure [facility] Diastolic blood 58 mm[Hg] Below low normal 58 mm[Hg] [facility] pressure [facility] Systolic blood 93 mm[Hg] Normal (applies to 93 mm[Hg] [facility] [facility] - pressure non-numeric [facility] results) [facility] r Respiratory rate 20 br/min Normal (applies to 20 br/min [facility] - non-numeric [facility] results) [facility] Peripheral Pulse 74 bpm Normal (applies to 74 bpm [facility] [facility] - Rate non-numeric [facility] results) [facility] Body temperature 97.7 97.7 [degF] [facility] - - Temporal artery [degF] [facility] r Body height 169.000 cm 169.000 cm [facility] r Body weight 60.000 kg 60.000 kg [facility] an Measured [facility] r Body height 167 cm 167 cm [facility] r Mean blood 93 mm[Hg] 93 mm[Hg] [facility] - pressure [facility] r Diastolic blood 76 mm[Hg] Normal (applies to 76 mm[Hg] [facility] - pressure non-numeric [facility] results) [facility] r Systolic blood 127 mm[Hg] Normal (applies to 127 mm[Hg] [facility] [facility] - pressure non-numeric [facility] results) [facility] Respiratory rate 18 br/min Normal (applies to 18 br/min [facility] [facility] - non-numeric [facility] results) [facility] Peripheral Pulse 96 bpm Normal (applies to 96 bpm [facility] [facility] - Rate non-numeric [facility] results) [facility] Body temperature 98.1 98.1 [degF] [place] [facility] - - Temporal artery [degF] [facility] Body height 167.000 cm 167.000 cm [facility] Body weight 55.000 kg 55.000 kg [facility] an - Measured [facility] Body surface area 1.6 1.6 [facility] [[email or web address] Body weight 55 kg 55 kg [facility] an - Measured [facility] Body height 158.000 cm 158.000 cm [facility] Body weight 49.000 kg 49.000 kg [facility] an - Measured [facility] Body surface area 1.47 1.47 [facility] [[email or web address]] Body weight 49 kg 49 kg [facility] an - Measured [facility] Body height 158 cm 158 cm [facility] Mean blood 87 mm[Hg] 87 mm[Hg] [place] [facility] - pressure [facility] Diastolic blood 71 mm[Hg] Normal (applies to 71 mm[Hg] [place] [facility] - pressure non-numeric [facility] results) [facility] Systolic blood 119 mm[Hg] Normal (applies to 119 mm[Hg] [facility] [facility] - pressure non-numeric [facility] results) [facility] Respiratory rate 20 br/min Normal (applies to 20 br/min [facility] [facility] - non-numeric [facility] results) [facility] Peripheral Pulse 78 bpm Normal (applies to 78 bpm [place] [facility] - Rate non-numeric [facility] results) [facility] Body temperature 98.2 98.2 [degF] [place] [facility] - - Temporal artery [degF] [facility] Patient Treatment Plan of Care Planned Activity Planned Date Details Description Data Source (s) Acetaminophen 300 MG / 10/05/2019 [place] [facility] - Codeine Phosphate 30 MG 10:51:00 PM EDT [facility] Oral Tablet Center amoxicillin 875 mg oral 10/05/2019 [place] [facility] - tablet 10:45:00 PM EDT [facility] Adderall 05/01/2019 [facility] - 01:48:00 AM EST [facility] Ambien 05/01/2019 [facility] - 01:47:00 AM EST [facility] albuterol CFC free 90 03/26/2019 [facility] - mcg/inh inhalation 09:09:00 PM EST [facility] aerosol Center Naproxen 500 MG Oral 01/19/2019 [facility] - Tablet 11:25:07 AM EST [facility] Ondansetron 4 MG 01/19/2019 [facility] - Disintegrating Oral 11:24:38 AM EST [facility] Center Sucralfate 1000 MG Oral 01/19/2019 [facility] - Tablet 11:24:28 AM EST [facility] Diazepam 2 MG Oral Tablet 12/15/2018 [facility] - 09:52:22 PM EDT [facility]
[2019-12-20] MEDS: GABAPENTIN 100 MG CAPSULE PO SCH ×2 (13:51→21:14)
[2019-12-20] MEDS: NICOTINE POLACRILEX 2 MG GUM BC PRN (13:53)
[2019-12-20] MEDS: NICOTINE 7 MG/24 HOURS TOPICAL PATCH TD SCH (13:54)
[2019-12-20] MEDS: PRENATAL VITAMINS W/ FOLIC ACID TABLET (FP) PO SCH (13:54)
[2019-12-20] MEDS: DOCUSATE SODIUM 100 MG CAPSULE (FP) PO PRN (13:56)
[2019-12-20] MEDS: METHOCARBAMOL 500 MG TABLET PO PRN ×2 (13:56→21:14)
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
[2019-12-20] MEDS: traZODone HCL 50 MG TABLET (FP) PO SCH (21:14)
[2019-12-20] MEDS: THIAMINE HCL 100 MG TABLET (FP) PO SCH (21:15)
[2019-12-20] MEDS ORDERED: MELATONIN 5 MG TABLETS PO SCH (22:00)
[2019-12-21] MEDS: GABAPENTIN 100 MG CAPSULE PO SCH ×3 (06:51→21:10)
[2019-12-21] MEDS: PRENATAL VITAMINS W/ FOLIC ACID TABLET (FP) PO SCH (09:37)
[2019-12-21] MEDS: NICOTINE POLACRILEX 2 MG GUM BC PRN ×2 (09:38→16:50)
[2019-12-21] MEDS: NICOTINE 7 MG/24 HOURS TOPICAL PATCH TD SCH (09:38)
[2019-12-21] MEDS: METHOCARBAMOL 500 MG TABLET PO PRN ×2 (09:39→21:10)
[2019-12-21] MEDS ORDERED: PT OWN MED DRAWER 7, Y5N ONE ×4 (10:14→14:24)
[2019-12-21] MEDS: DOCUSATE SODIUM 100 MG CAPSULE (FP) PO PRN (12:41)
--- NOTE | 2019-12-21 15:43 | PN ---
S Progress Note Note: Pt is a 39 y/o female admitted to rehab yesterday after detox on . c/o increased medication robaxin and sleeping meds. Pt on Trazodone 100 mg po HS and Melatonin 5 mg po HS. Vital Signs - 24 hr 12/20/19 12/21/19 12/21/19 21:10 07:16 14:10 Temperature 97.6 F Pulse Rate 74 Respiratory 16 Rate Blood Pressure 116/74 O2 Sat by Pulse 100 99 100 Oximetry (%) alert o x 3 nad oob ambulating with steady gait. S/p detox Increase melatonin 10 mg po hs increase robaxin 500 mg po TID prn increase po fluids
[2019-12-21] MEDS: THIAMINE HCL 100 MG TABLET (FP) PO SCH (21:10)
[2019-12-21] MEDS: traZODone HCL 50 MG TABLET (FP) PO SCH (21:10)
[2019-12-21] MEDS: MELATONIN 5 MG TABLETS PO SCH (21:11)
[2019-12-22] MEDS: METHOCARBAMOL 500 MG TABLET PO PRN ×3 (06:43→21:21)
[2019-12-22] MEDS: GABAPENTIN 100 MG CAPSULE PO SCH ×3 (06:43→21:18)
[2019-12-22] MEDS: ONDANSETRON *ODT* 4 MG TABLET SL PRN (06:44)
[2019-12-22] MEDS: NICOTINE POLACRILEX 2 MG GUM BC PRN ×4 (06:57→19:18)
[2019-12-22] MEDS: PRENATAL VITAMINS W/ FOLIC ACID TABLET (FP) PO SCH (09:58)
[2019-12-22] MEDS: DOCUSATE SODIUM 100 MG CAPSULE (FP) PO PRN (10:00)
[2019-12-22] MEDS: NICOTINE 7 MG/24 HOURS TOPICAL PATCH TD SCH (10:15)
[2019-12-22] MEDS: MELATONIN 5 MG TABLETS PO SCH (21:19)
[2019-12-22] MEDS: traZODone HCL 50 MG TABLET (FP) PO SCH (21:19)
[2019-12-22] MEDS: THIAMINE HCL 100 MG TABLET (FP) PO SCH (21:57)
[2019-12-23] MEDS: GABAPENTIN 100 MG CAPSULE PO SCH ×3 (06:47→21:20)
[2019-12-23] MEDS: METHOCARBAMOL 500 MG TABLET PO PRN ×3 (06:47→21:20)
[2019-12-23] MEDS: ONDANSETRON *ODT* 4 MG TABLET SL PRN (06:48)
[2019-12-23] MEDS: DOCUSATE SODIUM 100 MG CAPSULE (FP) PO PRN (06:58)
[2019-12-23] MEDS: PRENATAL VITAMINS W/ FOLIC ACID TABLET (FP) PO SCH (09:56)
[2019-12-23] MEDS: NICOTINE 7 MG/24 HOURS TOPICAL PATCH TD SCH (09:57)
[2019-12-23] MEDS: NICOTINE POLACRILEX 2 MG GUM BC PRN ×2 (11:46→19:11)
--- NOTE | 2019-12-23 13:30 | PN ---
Psychiatric Progress Note Vital Signs: Vital Signs Period Temp Pulse Resp BP Sys/Whittaker Pulse Ox Last 24 Hr 97.7 F-98.4 F 72-90 18-20 114-123/73-78 98-100 Date of Session: 12/23/19 Chief Complaint:: "I'm having anxiety and trouble sleeping." HPI: Patient admitted to [facility] rehab for opiate dependence. Consultation ordered due to patient reporting anxiety and insomnia. ROS: Patient presents as anxious and tearful. Current Medications: Active Medications Generic Name Dose Route Start Last Admin Trade Name Freq PRN Reason Stop Dose Admin Acetaminophen 650 mg 12/20/19 09:11 Tylenol - PO Q4H PRN FEVER Al Hydroxide/Mg Hydroxide 30 ml 12/20/19 09:11 Mylanta Oral Suspension - PO Q6H PRN DYSPEPSIA Docusate Sodium 300 mg 12/23/19 22:00 Colace - PO HS [facility] Gabapentin 200 mg 12/20/19 14:00 12/23/19 13:09 Neurontin - PO Not Given TID [facility] Guaifenesin 10 ml 12/20/19 09:11 Robitussin - PO Q6H PRN COUGH Ibuprofen 400 mg 12/20/19 09:11 Motrin - PO Q6H PRN Pain level 4-6 Loperamide HCl 4 mg 12/20/19 09:11 Imodium - PO Q6H PRN DIARRHEA Magnesium Citrate 300 ml 12/20/19 09:11 Citroma - PO Q48H PRN CONSTIPATION Magnesium Hydroxide 30 ml 12/20/19 09:11 12/21/19 16:49 Milk Of Magnesia - PO 30 ml DAILY PRN Administration CONSTIPATION Melatonin 10 mg 12/21/19 14:59 12/22/19 21:19 Melatonin PO Not Given HS [facility] Methocarbamol 500 mg 12/21/19 14:59 12/23/19 06:47 Robaxin - PO 500 mg TID PRN Administration MUSCLE SPASMS Nicotine 7 mg 12/20/19 10:00 12/23/19 09:57 Nicoderm Patch - TD Not Given DAILY [facility] Nicotine Polacrilex 2 mg 12/20/19 09:11 12/23/19 11:46 Nicorette Gum - BC 2 mg Q2H PRN Administration NICOTINE REPLACEMENT RX Ondansetron HCl 8 mg 12/23/19 10:16 Zofran Odt - SL Q8H PRN NAUSEA AND/OR VOMITING Multivit/Folic Acid/Iron 1 tab 12/20/19 10:00 12/23/19 09:56 Vitamins (Sjr) - PO 1 tab DAILY SRIKANTH Administration Pseudoephedrine/Triprolidine 1 combo 12/20/19 09:11 Actifed - PO TID PRN NASAL CONGESTION Thiamine HCl 100 mg 12/20/19 22:00 12/22/19 21:57 Vitamin B1 - PO 100 mg HS SRIKANTH Administration Trazodone HCl 100 mg 12/20/19 22:00 12/22/19 21:19 Desyrel - PO 100 mg HS SRIKANTH Administration Medication(s) Change(s): Yes. 1) Will order one time dose of clonidine 0.1mg. 2) Will d/c trazodone 100 HS 2)Will order Trazodone 150mg HS + Belsomra 5mg HS. Current Side Effect: No Lab tests ordered: No Lab tests reviewed: Yes Provider note:: Consultation ordered due to patient complaining of worsening anxiety and insomnia. Patient seen by travel writer on 12/19/19 and was started on gabapentin 200mg TID which patient stated was effective for several days but now patient states that gabapentin has worsened her anxiety and is making her irrirable. Alternative options offered ( vistaril, buspar, tricyclics such as elavil). All medications refused. Patient is prescribed lexapro 10mg + Abilify 5mg by outpatient psychiatrist which she discontiuned as she felt she no longer needed the medication. Patient refusing to restart lexapro 10mg + Abilify 5mg. Patient requesting to resume benzodiazepines. Patient is prescribed xanax 1mg TID by private psychiatrist. Ms. Fuentes informed by travel writer that xanax will not be prescribed in rehab. Patient remains anxious and is in agreement in accepting a one time dose of clonidine 0.1mg. Case discussed with Dr. Tinoco. Dr. Tinoco to speak to patient concerning her request for resuming benzodiazepine. In addition will address insomnia by increasing trazodone and adding Belsomra 5mg HS. Benefits and side effects discussed. Verbal consent given. Total face to face time:: 25 Mental Status Exam - Mental Status Exam Alert and Oriented to: Time, Place, Person Cognitive Function: Good Patient Appearance: Well Groomed Mood: Anxious Affect: Mood Congruent Patient Behavior: Crying (Tearful ), Cooperative Speech Pattern: Appropriate Voice Loudness: Normal Thought Process: Intact, Goal Oriented Thought Disorder: Not Present Hallucinations: Denies Suicidal Ideation: Denies Homicidal Ideation: Denies Insight/Judgement: Poor Sleep: Poorly Appetite: Fair Muscle strength/Tone: Normal Gait/Station: Normal Psychiatric Treatment Plan - Problem List (1) Opioid dependence Current Visit: Yes (2) Nicotine dependence Current Visit: Yes (3) PTSD (post-traumatic stress disorder) Current Visit: Yes (4) Anxiety disorder Current Visit: Yes Qualifiers: Anxiety disorder type: generalized anxiety disorder Qualified Code(s): F41.1 - Generalized anxiety disorder Comment: . (5) Insomnia Current Visit: No Qualifiers: Insomnia type: unspecified Qualified Code(s): G47.00 - Insomnia, unspecified (6) History of ADHD Current Visit: No
[2019-12-23] MEDS ORDERED: cloNIDine HCL 0.1 MG TABLET PO ONE ×2 (14:00→20:00)
--- NOTE | 2019-12-23 15:36 | PN ---
[facility] Progress Note Note: This story writer saw pt now93:15 pm on the unit who was in group calm with rapt attention. Spoke to patient re:clonidine request for anxiety to be ordered x [address] Martin's directive and that pt will be seen by Dr Tinoco tomorrow. Clonidine 0.1 mg po once ordered with parameters. Explained to pt the parameters attached prior to dispensing to her. Pt verbalized understanding.
[2019-12-23] MEDS: MELATONIN 5 MG TABLETS PO SCH (21:17)
[2019-12-23] MEDS: THIAMINE HCL 100 MG TABLET (FP) PO SCH (21:18)
[2019-12-23] MEDS: traZODone HCL 50 MG TABLET (FP) PO SCH (21:20)
[2019-12-23] MEDS: DOCUSATE SODIUM 100 MG CAPSULE (FP) PO SCH (21:20)
[2019-12-23] MEDS ORDERED: SUVOREXANT 5 MG TABLET PO PRN (22:00)
[2019-12-24] MEDS: METHOCARBAMOL 500 MG TABLET PO PRN ×2 (06:24→16:43)
[2019-12-24] MEDS: GABAPENTIN 100 MG CAPSULE PO SCH ×3 (06:24→21:31)
[2019-12-24] MEDS: ONDANSETRON *ODT* 4 MG TABLET SL PRN (06:24)
[2019-12-24] MEDS: PRENATAL VITAMINS W/ FOLIC ACID TABLET (FP) PO SCH (09:43)
[2019-12-24] MEDS: NICOTINE 7 MG/24 HOURS TOPICAL PATCH TD SCH (09:43)
[2019-12-24] MEDS: NICOTINE POLACRILEX 2 MG GUM BC PRN ×2 (09:45→13:17)
[2019-12-24] MEDS ORDERED: cloNIDine HCL 0.1 MG TABLET PO ONE (13:18)
[2019-12-24] MEDS: THIAMINE HCL 100 MG TABLET (FP) PO SCH (21:29)
[2019-12-24] MEDS: traZODone HCL 50 MG TABLET (FP) PO SCH (21:30)
[2019-12-24] MEDS: MELATONIN 5 MG TABLETS PO SCH (21:31)
[2019-12-24] MEDS: DOCUSATE SODIUM 100 MG CAPSULE (FP) PO SCH (21:31)
[2019-12-24] MEDS: cloNIDine HCL 0.1 MG TABLET PO PRN (21:32)
[2019-12-25] MEDS: METHOCARBAMOL 500 MG TABLET PO PRN ×3 (06:19→21:41)
[2019-12-25] MEDS: cloNIDine HCL 0.1 MG TABLET PO PRN (06:21)
[2019-12-25] MEDS: GABAPENTIN 100 MG CAPSULE PO SCH ×3 (06:22→21:41)
[2019-12-25] MEDS: PRENATAL VITAMINS W/ FOLIC ACID TABLET (FP) PO SCH (09:57)
[2019-12-25] MEDS: NICOTINE 7 MG/24 HOURS TOPICAL PATCH TD SCH (09:58)
[2019-12-25] MEDS ORDERED: AZITHROMYCIN 250 MG TABLET PO ONE (10:34)
--- NOTE | 2019-12-25 12:20 | PN ---
S Progress Note (SOAP) Subjective: c/o sore throat Objective: 12/25/19 12:15 t- 97.7 F, r- 12/m reg , pulse 88/m reg nose -clear oral- + erythema , no exudates nodes + jose. lungs - clear to a/p cor rrr, w/o murmur, neuro intact Assessment: 12/25/19 12:26 pharyngitis Plan: z-pack x 5 days tylenol prn fluids throat lozenges prn
[2019-12-25] MEDS ORDERED: cloNIDine HCL 0.1 MG TABLET PO ONE (12:21)
[2019-12-25] MEDS: ONDANSETRON *ODT* 4 MG TABLET SL PRN (15:58)
[2019-12-25] MEDS: NICOTINE POLACRILEX 2 MG GUM BC PRN ×2 (15:58→21:42)
[2019-12-25] MEDS: traZODone HCL 50 MG TABLET (FP) PO SCH (21:41)
[2019-12-25] MEDS: THIAMINE HCL 100 MG TABLET (FP) PO SCH (21:41)
[2019-12-25] MEDS: DOCUSATE SODIUM 100 MG CAPSULE (FP) PO SCH (21:42)
[2019-12-25] MEDS: MELATONIN 5 MG TABLETS PO SCH (21:42)
[2019-12-25] MEDS ORDERED: SUVOREXANT 5 MG TABLET PO PRN (22:00)
[2019-12-26] MEDS: GABAPENTIN 100 MG CAPSULE PO SCH ×3 (06:46→21:16)
[2019-12-26] MEDS: METHOCARBAMOL 500 MG TABLET PO PRN ×3 (06:47→21:14)
[2019-12-26] MEDS: ONDANSETRON *ODT* 4 MG TABLET SL PRN (06:47)
[2019-12-26] MEDS ORDERED: PT OWN MED DRAWER 7, Y5N ONE (08:20)
[2019-12-26] MEDS: PRENATAL VITAMINS W/ FOLIC ACID TABLET (FP) PO SCH (09:46)
[2019-12-26] MEDS: cloNIDine HCL 0.1 MG TABLET PO SCH ×2 (09:46→21:14)
[2019-12-26] MEDS: NICOTINE 7 MG/24 HOURS TOPICAL PATCH TD SCH (09:46)
[2019-12-26] MEDS: AZITHROMYCIN 250 MG TABLET PO SCH (09:47)
[2019-12-26] MEDS: NICOTINE POLACRILEX 2 MG GUM BC PRN ×2 (09:48→16:50)
--- NOTE | 2019-12-26 15:03 | PN ---
[facility] Progress Note Note: Psychiatric nurse practitioner note: Patient reports poor sleep despite accepting Belsomra 5mg HS. Will d/c Belsomora 5mg HS and will order Belsomra 10mg HS. Verbal consent given.
[2019-12-26] MEDS: traZODone HCL 50 MG TABLET (FP) PO SCH (21:14)
[2019-12-26] MEDS: SUVOREXANT 10 MG TABLET PO PRN (21:14)
[2019-12-26] MEDS: THIAMINE HCL 100 MG TABLET (FP) PO SCH (21:15)
[2019-12-26] MEDS: DOCUSATE SODIUM 100 MG CAPSULE (FP) PO SCH (21:16)
[2019-12-26] MEDS: MELATONIN 5 MG TABLETS PO SCH (21:16)
[2019-12-27] MEDS: GABAPENTIN 100 MG CAPSULE PO SCH ×3 (06:59→21:36)
[2019-12-27] MEDS: METHOCARBAMOL 500 MG TABLET PO PRN ×2 (06:59→16:48)
[2019-12-27] MEDS: BENZOCAINE/MENTH/CETYLPYRD CL 1 EACH LOZENGE MM PRN (07:01)
[2019-12-27] MEDS ORDERED: PT OWN MED DRAWER 7, Y5N ONE (08:41)
[2019-12-27] MEDS: cloNIDine HCL 0.1 MG TABLET PO SCH ×2 (10:02→21:35)
[2019-12-27] MEDS: AZITHROMYCIN 250 MG TABLET PO SCH (10:03)
[2019-12-27] MEDS: NICOTINE 7 MG/24 HOURS TOPICAL PATCH TD SCH (10:03)
[2019-12-27] MEDS: PRENATAL VITAMINS W/ FOLIC ACID TABLET (FP) PO SCH (10:03)
[2019-12-27] MEDS: NICOTINE POLACRILEX 2 MG GUM BC PRN (10:04)
[2019-12-27] MEDS: SUVOREXANT 10 MG TABLET PO PRN (21:34)
[2019-12-27] MEDS: THIAMINE HCL 100 MG TABLET (FP) PO SCH (21:34)
[2019-12-27] MEDS: traZODone HCL 50 MG TABLET (FP) PO SCH (21:35)
[2019-12-27] MEDS: DOCUSATE SODIUM 100 MG CAPSULE (FP) PO SCH (21:36)
[2019-12-27] MEDS: MELATONIN 5 MG TABLETS PO SCH (21:36)
[2019-12-28] MEDS: GABAPENTIN 100 MG CAPSULE PO SCH ×3 (07:02→21:19)
[2019-12-28] MEDS: METHOCARBAMOL 500 MG TABLET PO PRN ×2 (07:02→21:19)
[2019-12-28] MEDS: ONDANSETRON *ODT* 4 MG TABLET SL PRN ×2 (07:02→21:22)
--- NOTE | 2019-12-28 10:25 | PN ---
[facility] Progress Note Note: Patient seen by sign writer letterer or painter due to complaints of anxiety and insomnia. Reports that medications(Gapabentin, Trazadone, Clonidine, Belsomra, Melatonin) she is currently on are not helping. Reports experincing side-effects with other medications like Vistaril. She insists on getting Benzo's which she claims she was prescribed and respond very well to. Reportedly, patient was seen by the medical billing assistant because of same issue but interaction is not documented
[2019-12-28] MEDS: PRENATAL VITAMINS W/ FOLIC ACID TABLET (FP) PO SCH (10:35)
[2019-12-28] MEDS: NICOTINE 7 MG/24 HOURS TOPICAL PATCH TD SCH (10:36)
[2019-12-28] MEDS: cloNIDine HCL 0.1 MG TABLET PO SCH ×2 (10:36→21:19)
[2019-12-28] MEDS ORDERED: PT OWN MED DRAWER 7, Y5N ONE (10:38)
[2019-12-28] MEDS: NICOTINE POLACRILEX 2 MG GUM BC PRN ×2 (10:40→14:52)
[2019-12-28] MEDS: AZITHROMYCIN 250 MG TABLET PO SCH (12:31)
[2019-12-28] MEDS: traZODone HCL 50 MG TABLET (FP) PO SCH (21:18)
[2019-12-28] MEDS: THIAMINE HCL 100 MG TABLET (FP) PO SCH (21:19)
[2019-12-28] MEDS: DOCUSATE SODIUM 100 MG CAPSULE (FP) PO SCH (21:19)
[2019-12-28] MEDS: MELATONIN 5 MG TABLETS PO SCH (21:19)
[2019-12-28] MEDS: SUVOREXANT 10 MG TABLET PO PRN (21:20)
[2019-12-29] MEDS: ONDANSETRON *ODT* 4 MG TABLET SL PRN ×2 (06:34→13:45)
[2019-12-29] MEDS: GABAPENTIN 100 MG CAPSULE PO SCH ×3 (06:34→21:32)
[2019-12-29] MEDS: METHOCARBAMOL 500 MG TABLET PO PRN ×2 (06:35→13:44)
[2019-12-29] MEDS: NICOTINE POLACRILEX 2 MG GUM BC PRN ×5 (07:23→21:32)
[2019-12-29] MEDS: cloNIDine HCL 0.1 MG TABLET PO SCH ×2 (09:33→21:31)
[2019-12-29] MEDS: PRENATAL VITAMINS W/ FOLIC ACID TABLET (FP) PO SCH (09:33)
[2019-12-29] MEDS: NICOTINE 7 MG/24 HOURS TOPICAL PATCH TD SCH (09:34)
[2019-12-29] MEDS: AZITHROMYCIN 250 MG TABLET PO SCH (09:34)
--- NOTE | 2019-12-29 15:05 | PN ---
[facility] Progress Note Note: S. Patient seen due to request to help her deal with her insomnia. She feels that her insomnia is due to the anxiety that is getting triggered by incidents in the rehab unit. She was getting prescribed benzodiazepines daily as an outpatient which she had to abruptly stop while in rehab. Attempts at increasing her dose sleeping medications and changes in medications for the insomnia have not been helpful. Trazodone, not helpful; belsomnra not helpful. She is requesting a low dose of valium on a prn basis. O. Pressured speech, agitation, but focused in content. A/P: 1.Anxiety Disorder: Will place patient on low dose valium 2 mg on a prn basis. She will continue to follow plans in rehab, attend groups, do meditation and relaxation techniques so that she does not need to utilize that benzodiazepine prescription. However, as a last resort and to help allay her increasing anxiety and due to the commotion within the rehab unit, this scientific technical writer has deemed it necessary for the patient to get a prn dose of benzodiazepines until her planned discharge on 01/01/20. She already has outpatient follow with a program and will be attending NA meeting as an outpatient. Dr. Tinoco
[2019-12-29] MEDS: diazePAM 5 MG TABLET PO PRN (16:27)
[2019-12-29] MEDS: traZODone HCL 50 MG TABLET (FP) PO SCH (21:31)
[2019-12-29] MEDS: SUVOREXANT 10 MG TABLET PO PRN (21:32)
[2019-12-29] MEDS: THIAMINE HCL 100 MG TABLET (FP) PO SCH (21:32)
[2019-12-29] MEDS: MELATONIN 5 MG TABLETS PO SCH (21:32)
[2019-12-29] MEDS: DOCUSATE SODIUM 100 MG CAPSULE (FP) PO SCH (21:32)
[2019-12-30] MEDS: NICOTINE POLACRILEX 2 MG GUM BC PRN ×4 (06:41→17:41)
[2019-12-30] MEDS: GABAPENTIN 100 MG CAPSULE PO SCH ×3 (06:41→21:02)
[2019-12-30] MEDS: METHOCARBAMOL 500 MG TABLET PO PRN ×2 (06:41→16:49)
[2019-12-30] MEDS: ONDANSETRON *ODT* 4 MG TABLET SL PRN (08:43)
[2019-12-30] MEDS: PRENATAL VITAMINS W/ FOLIC ACID TABLET (FP) PO SCH (09:00)
[2019-12-30] MEDS: cloNIDine HCL 0.1 MG TABLET PO SCH ×2 (09:00→21:01)
[2019-12-30] MEDS: NICOTINE 7 MG/24 HOURS TOPICAL PATCH TD SCH (09:01)
[2019-12-30] MEDS: LIDOCAINE 5% TOPICAL PATCH TP SCH (10:41)
[2019-12-30] MEDS: diazePAM 5 MG TABLET PO PRN (11:59)
[2019-12-30] MEDS: traZODone HCL 50 MG TABLET (FP) PO SCH (21:01)
[2019-12-30] MEDS: MELATONIN 5 MG TABLETS PO SCH (21:02)
[2019-12-30] MEDS: THIAMINE HCL 100 MG TABLET (FP) PO SCH (21:02)
[2019-12-30] MEDS: LIDOCAINE PATCH REMOVAL MC SCH (21:02)
[2019-12-30] MEDS: DOCUSATE SODIUM 100 MG CAPSULE (FP) PO SCH (21:02)
[2019-12-30] MEDS: SUVOREXANT 10 MG TABLET PO PRN (21:03)
[2019-12-31] MEDS: METHOCARBAMOL 500 MG TABLET PO PRN ×2 (06:41→14:51)
[2019-12-31] MEDS: GABAPENTIN 100 MG CAPSULE PO SCH ×3 (06:41→21:31)
[2019-12-31] MEDS: NICOTINE POLACRILEX 2 MG GUM BC PRN ×2 (06:41→17:50)
[2019-12-31] MEDS: diazePAM 5 MG TABLET PO PRN (07:02)
[2019-12-31] MEDS: PRENATAL VITAMINS W/ FOLIC ACID TABLET (FP) PO SCH (09:56)
[2019-12-31] MEDS: cloNIDine HCL 0.1 MG TABLET PO SCH ×2 (09:56→21:30)
[2019-12-31] MEDS: NICOTINE 7 MG/24 HOURS TOPICAL PATCH TD SCH (09:56)
[2019-12-31] MEDS: LIDOCAINE 5% TOPICAL PATCH TP SCH (09:56)
[2019-12-31] MEDS: ONDANSETRON *ODT* 4 MG TABLET SL PRN (11:05)
[2019-12-31] MEDS ORDERED: PT OWN MED DRAWER 7, Y5N ONE (11:45)
--- NOTE | 2019-12-31 11:45 | PN ---
[facility] Progress Note Note: patient is scheduled for discharge tomorrow. Scripts for 30 days supply of medications(Gabapentin 200 mg/tid, Trazadone 150 mg/hs) will be electronically transmitted to [facility], [address] [place] [id number]
[2019-12-31] MEDS: BENZOCAINE/MENTH/CETYLPYRD CL 1 EACH LOZENGE MM PRN (13:27)
[2019-12-31] MEDS: traZODone HCL 50 MG TABLET (FP) PO SCH (21:30)
[2019-12-31] MEDS: SUVOREXANT 10 MG TABLET PO PRN (21:30)
[2019-12-31] MEDS: DOCUSATE SODIUM 100 MG CAPSULE (FP) PO SCH (21:31)
[2019-12-31] MEDS: THIAMINE HCL 100 MG TABLET (FP) PO SCH (21:31)
[2019-12-31] MEDS: LIDOCAINE PATCH REMOVAL MC SCH (21:31)
[2019-12-31] MEDS: MELATONIN 5 MG TABLETS PO SCH (21:31)
[2020-01-01] MEDS: ONDANSETRON *ODT* 4 MG TABLET SL PRN (04:45)
[2020-01-01] MEDS: GABAPENTIN 100 MG CAPSULE PO SCH (06:39)
[2020-01-01] MEDS: METHOCARBAMOL 500 MG TABLET PO PRN (06:40)
[2020-01-01] MEDS: diazePAM 5 MG TABLET PO PRN (06:40)
[2020-01-01 06:50] VITALS: BP 120/76; PULSE 80; TEMP 98
--- NOTE | 2020-01-01 07:10 | PN ---
[facility] Progress Note Note: SEEN THIS MORNING FOR SCHEDULE DC LATER THIS MORNING BUT CLIENT NEED TO LEAVE EARLY TO ESCORT HER DAD TO CHEMO. CLIENT DENIES ANY C/O TO INCLUDE C.P., SOB, DIZZINESS, N/V/D. Vital Signs Temperature 98.0 F 01/01/20 06:49 Pulse Rate 80 01/01/20 06:49 Respiratory Rate 16 01/01/20 06:49 Blood Pressure 120/76 01/01/20 06:49 O2 Sat by Pulse Oximetry (%) 100 01/01/20 06:49 A/O X3 NAD, CLEAR SPEECH AND DIALOGUE NCAT RESP- NL EXTREMITIES- AMBULATING W/O DIFFICULTY
== END 2020-01-01 07:05 | disposition home or self-care (01) | DRG 772 ==
LOC: YASAS 10:38 → Y3E 10:39
PROVIDERS: ADMIT Allergy & Immunology; ATTEND Allergy & Immunology
PROC: HZ42ZZZ Group Counseling for Substance Abuse Treatment, Cognitive-Behavioral (ICD-10-PCS; principal; 2019-12-20)
DX: F11.20 Opioid dependence, uncomplicated (principal); F17.210 Nicotine dependence, cigarettes, uncomplicated; F41.9 Anxiety disorder, unspecified; F43.10 Post-traumatic stress disorder, unspecified; G47.00 Insomnia, unspecified; J02.9 Acute pharyngitis, unspecified; Z86.59 Personal history of other mental and behavioral disorders; Z87.19 Personal history of other diseases of the digestive system
CPT/HCPCS: J0735; Q0162